=== PATIENT | female | born 1960 | race Caucasian/White ===

== ENCOUNTER → 2018-02-25 07:45 | Outpatient (CLI) | payer OTHER, SELFPAY ==
--- NOTE | 2018-02-25 07:49 | BI_ITS ---
MAMMOGRAPHY - BILATERAL SCREENING REASON FOR EXAM: Female, 57 years old. Routine annual screening examination. PERTINENT HISTORY: Aunt with breast cancer. TECHNIQUE: Digital bilateral breast zohreh (3D mammographic acquisition) in the CC and MLO projections. 2-D mediolateral oblique (MLO) and craniocaudad (CC) views of both breasts were obtained. CAD: Full Field Digital Mammography with Computer Added Detection was performed. COMPARISON: Comparison is made with prior study dated February 18, 2017 and February 17, 2016. FINDINGS: Breast Composition: The breasts are heterogeneously dense, which may obscure small masses. There are no dominant masses or suspicious calcifications. No other significant abnormalities are identified. There has been no significant change since the prior study. BI/SCREENING MAMM (CAD), BILAT IMPRESSION: Stable bilateral screening mammogram. Yearly follow-up mammogram recommended. (A) ASSESSMENT CATEGORY: BIRADS Category 1: Negative. A letter regarding these results will be sent to the patient by the facility within 30 days. Approximately 10% of breast cancers are not detected by mammography. A normal mammogram should not delay biopsy of a clinically suspicious abnormality. [id number] Electronically Signed: Faraz Bai MD at 11:02 EDT Tel [phone], Service support ,
== END ==
PROVIDERS: Family Provider Family Medicine; PCP Family Medicine; Visit Provider Obstetrics & Gynecology
DX: Z12.31 Encounter for screening mammogram for malignant neoplasm of breast (principal)
CPT/HCPCS: 77063; 77067

== ENCOUNTER → 2019-02-28 | Outpatient (CLI) | payer OTHER, SELFPAY ==
--- NOTE | 2019-02-28 06:57 | BI_ITS ---
MAMMOGRAPHY - BILATERAL SCREENING REASON FOR EXAM: Female, 58 years old. Routine annual screening examination. PERTINENT HISTORY: Aunts with breast cancer. TECHNIQUE: Digital bilateral breast katie (3D mammographic acquisition) in the CC and MLO projections. 2-D mediolateral oblique (MLO) and craniocaudad (CC) views of both breasts were obtained. CAD: Full Field Digital Mammography with Computer Added Detection was performed. COMPARISON: Comparison is made with prior study dated February 25, 2018 and February 18, 2017. FINDINGS: Breast Composition: The breasts are heterogeneously dense, which may obscure small masses. There are no dominant masses or suspicious calcifications. Stable small bilateral axillary lymph nodes. No other significant abnormalities are identified. There has been no significant change since the prior study. BI/SCREEN MAMM (CAD) W/KATIE BILAT IMPRESSION: Stable bilateral screening mammogram. Yearly follow-up mammogram recommended. (A) ASSESSMENT CATEGORY: BIRADS Category 2: Benign. A letter regarding these results will be sent to the patient by the facility within 30 days. Approximately 10% of breast cancers are not detected by mammography. A normal mammogram should not delay biopsy of a clinically suspicious abnormality. [id number] Electronically Signed: Faraz Bai, at 8:49 EDT , Service support ,
== END | disposition home or self-care (01) ==
LOC: OPBI 07:22
PROVIDERS: Family Provider Family Medicine; PCP Family Medicine; Referring Provider Obstetrics & Gynecology; Visit Provider Obstetrics & Gynecology
DX: Z12.31 Encounter for screening mammogram for malignant neoplasm of breast (principal)
CPT/HCPCS: 77063; 77067

== ENCOUNTER → 2019-03-10 17:29 | Outpatient (CLI) | payer OTHER, SELFPAY ==
[2019-03-17 15:46] LABS: HPV Reflexed? NOT INDICATED
== END ==
PROVIDERS: Referring Provider Obstetrics & Gynecology; Visit Provider Obstetrics & Gynecology
DX: Z12.4 Encounter for screening for malignant neoplasm of cervix (principal)
CPT/HCPCS: 87624; 88175; G0145

== ENCOUNTER 2019-08-23 18:45 | Outpatient (RCR) | payer OTHER, SELFPAY ==
--- NOTE | 2018-10-17 12:46 | MASS.EVAL_ITS ---
Massage Therapy Evaluation: Initial Evaluation Date: 10/12/2018 SUBJECTIVE: Rossana is a 57 year old female who was referred to the [facility] for a massotherapy evaluation by Dr Vlad Rothman with the diagnosis of neck pain. Rossana presents today with the symptoms of tension and pain in her neck and shoulders. She states that the left is worse then the right. She reports having increased pain after work. OBJECTIVE: Upon observation Rossana has slight head forward in sitting and standing postures. After examination and palpation I found Rossana to have high muscle tension with tenderness and myofascial restrictions in her sub occipitals, levator scapulae, trapezius, rhomboids, scalenes, and thoracic paraspinals. Her QL?s, lumbar paraspinals, glute medius and minimus all were very tight with fascial restrictions, tender points and trigger points. The first treatment consisted of a one hour massage to her full body with myofascial release, muscle stripping, trigger point compression techniques, and cervical manual traction. ASSESSMENT: I feel that Rossana is a good candidate for massotherapy at this time. She had a favorable response to the first treatment with reduction in her muscle aches, pain and tension. She also had improvement in her cervical flexibility and low back flexibility. PLAN: The plan of care was reviewed with the patient. The patient is to be seen on an as needed basis for a total of ten sessions with the recommendation of once every month for a one hour treatment.
--- NOTE | 2019-09-01 14:59 | MASS.DISCH ---
Massage Therapy Discharge Summary: Discharge Date: 09/01/2019 Rossana was seen for a massotherapy evaluation on 10/12/2018 with the diagnosis of cervicalgia. She was treated with seven sessions of massage therapy consisting of moderate to deep pressure soft tissue techniques, myofascial release and trigger point compression to her cervical, thoracic, lower back, upper extremities, lower extremities and hips. Rossana responded well to the therapy by reporting decreased tension and pain throughout her head, neck, shoulders, lower back and hips. Her goals for therapy were met throughout the treatment sessions. At this time this patient is being discharged from our care at [facility] facility.
== END 2019-08-23 19:00 | disposition home or self-care (01) ==
LOC: MASS 18:45
PROVIDERS: Family Provider Family Medicine; PCP Family Medicine; Visit Provider Family Medicine
DX: M54.2 Cervicalgia (principal)
CPT/HCPCS: 97124

== ENCOUNTER → 2019-11-02 10:57 | Outpatient (CLI) | payer OTHER, SELFPAY ==
[2019-11-02 12:46] LABS: Vitamin D,25 Hydroxy 29.8 ng/mL (29.95-100.01)
[2019-11-02 13:00] LABS: ALB/GLOB Ratio 0.9 RATIO (0.9-2.4); AST(SGOT) 19 U/L (15-37); Alanine Aminotransfer ALT/SGPT 27 U/L (13-56); Alkaline Phosphatase 95 U/L (45-117); Anion Gap 6 (5-15); BUN 10 mg/dL (7-18); BUN/Creat Ratio 13.5 RATIO (10-20); Calcium,Total 9.7 mg/dL (8.5-10.1); Chloride 103 mmol/L (98-107); Creatinine, Serum 0.74 mg/dL (0.55-1.02); EST Glomerular Filtration Rate 85 mL/min (>60); Est Glom Filt Rate - Afr Amer 103 mL/min (>60); Globulin 4.4 g/dL (2.2-4.2); Glucose 107 mg/dL (74-106); Potassium 3.7 mmol/L (3.5-5.1); Protein, Total 8.4 g/dL (6.4-8.2); Sodium Level 137 mmol/L (136-145); T4 Free Direct 1.15 ng/dL (0.76-1.46); Thyroid Stim Hormone (TSH) 1.35 uIU/mL (0.358-3.74)
== END ==
PROVIDERS: PCP Family Medicine; Referring Provider Family Medicine; Visit Provider Family Medicine
DX: I10 Essential (primary) hypertension (principal); E04.1 Nontoxic single thyroid nodule; E55.9 Vitamin D deficiency, unspecified
CPT/HCPCS: 36415; 80053; 82306; 83036; 84439; 84443

== ENCOUNTER → 2019-11-03 13:57 | Outpatient (CLI) | payer OTHER, SELFPAY | PROVIDERS: PCP Family Medicine; Referring Provider Family Medicine; Visit Provider Family Medicine | DX: R73.09 Other abnormal glucose (principal) | CPT/HCPCS: 36415; 83036 ==

== ENCOUNTER → 2019-11-07 08:34 | Outpatient (CLI) | payer OTHER, SELFPAY ==
--- NOTE | 2019-11-07 08:36 | US_ITS ---
STUDY: THYROID ULTRASOUND REASON FOR EXAM: Female, 58 years old. nodule TECHNIQUE: Ultrasound evaluation of the thyroid was performed with real-time and static michele-scale imaging. COMPARISON: None. FINDINGS: RIGHT LOBE: The right lobe of the thyroid gland measures 4.8 x 1.4 x 1.2 cm. There is a homogeneous echotexture. 2 mm colloid cyst in the inferior right lobe. 2 mm colloid cyst posteriorly in the right lobe. LEFT LOBE: The left lobe of the thyroid gland measures 4.9 x 1.6 x 1.3 cm. There is a homogeneous echotexture. 8 mm slightly hypoechoic solid nodule in the left lobe likely consistent with an adenoma. Follow-up ultrasound is recommended in one year to document stability. ISTHMUS: The isthmus measures 2 mm thick. . The regional lymph nodes are normal. US/Thyroid IMPRESSION: 8 mm solid nodule in the left lobe and follow-up ultrasound is recommended in one year to document stability. Electronically Signed: Edy Hdez MD at 12:43 EST Tel , Service support ,
== END ==
PROVIDERS: PCP Family Medicine; Referring Provider Family Medicine; Visit Provider Family Medicine
DX: E04.1 Nontoxic single thyroid nodule (principal)
CPT/HCPCS: 76536

== ENCOUNTER → 2020-03-04 07:33 | Outpatient (CLI) | payer OTHER, SELFPAY ==
--- NOTE | 2020-03-04 07:35 | BI_ITS ---
MAMMOGRAPHY - BILATERAL SCREENING 3-D TOMOSYNTHESIS REASON FOR EXAM: Female, 59 years old. Routine screening PERTINENT HISTORY: FM HX 2 MAT AUNTS 60''S, MAT MALE COUSIN 30, RT UIQ MOLE MARKED. TECHNIQUE: 2-D mammograms and 3-D Tomosynthesis of the breast (s) were performed. CAD was performed. COMPARISON: Multiple previous studies, the most recent from 02/28/2019 FINDINGS: The breast composition is heterogeneously dense that can obscure small breast masses. Scattered benign calcifications are seen. No dense spiculated masses or suspicious microcalcifications are identified. No architectural distortion is identified. There is no skin thickening or retraction. There has been no significant change since the prior study. BI/SCREEN MAMM (CAD) W/KATIE BILAT IMPRESSION: No mammographic signs of malignancy. Routine yearly mammograms recommended. ASSESSMENT CATEGORY: BIRADS Category 2: Benign. A letter regarding these results will be sent to the patient by the facility within 30 days. FOLLOW UP RECOMMENDATION: Yearly follow up mammogram recommended. (A) Approximately 10% of breast cancers are not detected by mammography. A normal mammogram should not delay biopsy of a clinically suspicious abnormality. Electronically Signed: Benson Novoa MD at 10:16 EDT , Service support ,
== END ==
PROVIDERS: PCP Family Medicine; Referring Provider Obstetrics & Gynecology; Visit Provider Obstetrics & Gynecology
DX: Z12.31 Encounter for screening mammogram for malignant neoplasm of breast (principal)
CPT/HCPCS: 77063; 77067

== ENCOUNTER → 2020-06-21 08:48 | Outpatient (CLI) | payer OTHER, SELFPAY ==
[2020-05-27 09:29] VITALS: BMI 25.0
[2020-06-21 10:59] LABS: Absolute Neutrophil Count 4.3 X10^3/uL (2.0-7.7); Basophil# 0.05 X10^3/uL; Basophil% 0.6 % (0-1); Eosinophil# 0.14 X10^3/uL; Eosinophils% 1.6 % (0-5); Hematocrit 47.1 % (37-47); Hemoglobin 14.8 g/dL (12.0-15.0); Mean Corp Hgb Conc 31.4 g/dL (32-36); Mean Corpuscular Hgb 28.7 pg (27.0-32.0); Mean Corpuscular Volume 91.3 fL (81-99); Mean Platelet Vol. 10.2 fl (6.2-12.0); Monocyte# 0.99 X10^3/uL; Monocyte% 11.1 % (0-10); NRBC Flagged by Analyzer 0 % (0-5); Neutrophil # 4.33 X10^3/uL (2.7-7.7); Neutrophil % 48.4 % (47-70); Platelet Count 301 K/mm3 (150-450); RBC Distribution Width CV 12.5 % (11.6-14.6); RBC Distribution Width SD 41.8 fl (35.1-43.9); Red Blood Count 5.16 M/mm3 (4.2-5.4); White Blood Count 8.9 K/mm3 (4.4-11.0)
[2020-06-21 11:02] LABS: Hemoglobin A1c 6.1 % (3.8-5.6)
[2020-06-21 11:10] LABS: ALB/GLOB Ratio 0.9 RATIO (0.9-2.4); AST(SGOT) 17 U/L (15-37); Alanine Aminotransfer ALT/SGPT 24 U/L (13-56); Albumin, Serum 3.6 g/dL (3.2-5.0); Alkaline Phosphatase 88 U/L (45-117); Anion Gap 4 (5-15); BUN 9 mg/dL (7-18); BUN/Creat Ratio 11.6 RATIO (10-20); Calcium,Total 9.4 mg/dL (8.5-10.1); Chloride 106 mmol/L (98-107); Creatinine, Serum 0.77 mg/dL (0.55-1.02); EST Glomerular Filtration Rate 80 mL/min (>60); Est Glom Filt Rate - Afr Amer 97 mL/min (>60); Globulin 3.9 g/dL (2.2-4.2); Glucose 98 mg/dL (74-106); Potassium 3.8 mmol/L (3.5-5.1); Protein, Total 7.5 g/dL (6.4-8.2); Sodium Level 139 mmol/L (136-145)
== END ==
PROVIDERS: PCP Family Medicine; Referring Provider Family Medicine; Visit Provider Family Medicine
DX: I10 Essential (primary) hypertension (principal); R73.02 Impaired glucose tolerance (oral)
CPT/HCPCS: 36415; 80053; 83036; 85025

== ENCOUNTER 2020-09-09 13:30 | Outpatient (RCR) | payer OTHER, SELFPAY ==
--- NOTE | 2020-04-22 10:50 | MASS.EVAL ---
Massage Therapy Evaluation: Initial Evaluation Date: 04/19/2020 SUBJECTIVE: Rossana is a 59 year old female who was referred to the [facility] facility for a massotherapy evaluation by Dr. Fitzpatrick with the diagnosis of neck and back pain. She presents today with the symptoms of slight pain, stiffness and tension in the neck, mid back, low back and hips. Rossana reports having a past medical history of neck, shoulders, back pain. OBJECTIVE: Upon observation Rossana has some posture issues with her head and shoulders forward from the neutral position in sitting and standing. After examination and palpation, I found Rossana to have high muscle tension with tenderness and myofascial restrictions in her sub occipitals, levator scapulae, trapezius, rhomboids, scalenes, and thoracic paraspinals. Her paraspinals, piriformis, glute medius and minimus all were very tight with fascial restrictions, tender points and trigger points. The first treatment consisted of a one hour massage to her full body with myofascial release, muscle stripping, trigger point compression techniques, and cervical manual traction. ASSESSMENT: I feel that Rossana is a good candidate for massotherapy at this time. She had a favorable response to the first treatment with reduction in her muscle aches, pain and tension. She also had improvement in her cervical flexibility and low back flexibility. PLAN: The plan of care was reviewed with the patient. The patient is to be seen on an as needed basis for a total of ten sessions with the recommendation of once every month for a one hour treatment.
--- NOTE | 2020-09-10 12:29 | MASS.DISCH ---
Massage Therapy Discharge Summary: Discharge Date: 09/10/2020 Rossana was seen for a massotherapy evaluation on 04/19/2020 with the diagnosis of back and neck pain. She was treated with five sessions of massage therapy consisting of moderate pressure soft tissue techniques, myofascial release and trigger point compression to her cervical, thoracic, lower back, lower extremities and hips. Rossana responded well to the therapy by reporting decreased tension and pain throughout her neck, shoulders, lower back and hips. At this time this patient is being discharged from our care at [facility] facility.
== END 2020-09-09 19:00 | disposition home or self-care (01) ==
LOC: MASS 13:30
PROVIDERS: PCP Family Medicine; Visit Provider Family Medicine
DX: M54.9 Dorsalgia, unspecified (principal); M54.2 Cervicalgia
CPT/HCPCS: 97124

== ENCOUNTER → 2020-11-01 07:34 | Outpatient (CLI) | payer OTHER, SELFPAY ==
[2020-05-27 09:29] VITALS: BMI 25.0
--- NOTE | 2020-11-01 07:35 | US_ITS ---
STUDY: THYROID ULTRASOUND REASON FOR EXAM: Female, 59 years old. NODULES TECHNIQUE: Ultrasound evaluation of the thyroid was performed with real-time and static michele-scale imaging. COMPARISON: Comparison is made with prior examination dated 11/07/2019. FINDINGS: RIGHT LOBE: The right lobe of the thyroid gland measures 4.4 cm x 1.8 cm x 1.9 cm. There is a homogeneous echotexture. There is a 3 mm x 2 mm x 2 mm cyst in the lower pole. This is unchanged. LEFT LOBE: The left lobe of the thyroid gland measures 4.7 cm x 1.5 cm x 1.8 cm. There is a homogeneous echotexture. There is a 4 mm x 4 mm x 3 mm hypoechoic solid nodule in the midpole of the left lobe. This has decreased in size as compared to prior study. ISTHMUS: The isthmus measures 4 mm. The regional lymph nodes are normal. US/Thyroid IMPRESSION: Interval decrease in size of the hypoechoic solid nodule seen in the midpole of the left lobe. It presently measures 4 mm x 4 mm x 3 mm. Electronically Signed: Faraz Bai MD at 9:43 EST , Service support ,
== END ==
PROVIDERS: PCP Family Medicine; Referring Provider Family Medicine; Visit Provider Family Medicine
DX: E04.1 Nontoxic single thyroid nodule (principal)
CPT/HCPCS: 76536

== ENCOUNTER → 2020-12-31 08:45 | Outpatient (CLI) | payer OTHER, SELFPAY ==
[2020-12-31 10:18] LABS: Absolute Lymphocyte Count 2.87 X10^3/uL (0.83-4.51); Absolute Neutrophil Count 4.2 X10^3/uL (2.0-7.7); Basophil# 0.04 X10^3/uL; Basophil% 0.5 % (0-1); Eosinophil# 0.13 X10^3/uL; Eosinophils% 1.6 % (0-5); Hematocrit 44.2 % (37-47); Hemoglobin 14.4 g/dL (12.0-15.0); Lymphocyte # 2.87 X10^3/ul (0.83-4.51); Lymphocyte % 35.5 % (19-41); Mean Corp Hgb Conc 32.6 g/dL (32-36); Mean Corpuscular Hgb 29.1 pg (27.0-32.0); Mean Corpuscular Volume 89.5 fL (81-99); Mean Platelet Vol. 10.2 fl (6.2-12.0); Monocyte# 0.82 X10^3/uL; Monocyte% 10.1 % (0-10); NRBC Flagged by Analyzer 0 % (0-5); Neutrophil % 52.1 % (47-70); Platelet Count 260 K/mm3 (150-450); RBC Distribution Width CV 12.3 % (11.6-14.6); RBC Distribution Width SD 40.3 fl (35.1-43.9); Red Blood Count 4.94 M/mm3 (4.2-5.4); White Blood Count 8.1 K/mm3 (4.4-11.0)
[2020-12-31 10:50] LABS: AST(SGOT) 16 U/L (15-37); Alanine Aminotransfer ALT/SGPT 21 U/L (13-56); Albumin, Serum 3.5 g/dL (3.2-5.0); Alkaline Phosphatase 82 U/L (45-117); Anion Gap 5 (5-15); BUN 13 mg/dL (7-18); BUN/Creat Ratio 19.6 RATIO (10-20); Calcium,Total 8.8 mg/dL (8.5-10.1); Chloride 104 mmol/L (98-107); Creatinine, Serum 0.66 mg/dL (0.55-1.02); EST Glomerular Filtration Rate 96 mL/min (>60); Est Glom Filt Rate - Afr Amer 116 mL/min (>60); Globulin 3.5 g/dL (2.2-4.2); Glucose 98 mg/dL (74-106); Potassium 3.7 mmol/L (3.5-5.1); Sodium Level 137 mmol/L (136-145)
[2020-12-31 11:25] LABS: Hemoglobin A1c 5.7 % (3.8-5.6)
== END ==
PROVIDERS: PCP Family Medicine; Referring Provider Family Medicine; Visit Provider Family Medicine
DX: R73.02 Impaired glucose tolerance (oral) (principal); I10 Essential (primary) hypertension
CPT/HCPCS: 80053; 83036; 85025

== ENCOUNTER → 2021-03-13 08:08 | Outpatient (CLI) | payer OTHER, SELFPAY ==
[2020-05-27 09:29] VITALS: BMI 25.0
--- NOTE | 2021-03-13 08:10 | BI_ITS ---
MAMMOGRAPHY - BILATERAL SCREENING REASON FOR EXAM: Female, 60 years old. Routine annual screening examination. PERTINENT HISTORY: Aunt with breast cancer. TECHNIQUE: Digital bilateral breast katie (3D mammographic acquisition) in the CC and MLO projections. 2-D mediolateral oblique (MLO) and craniocaudad (CC) views of both breasts were obtained. CAD: Full Field Digital Mammography with Computer Added Detection was performed. COMPARISON: Comparison is made with prior study dated 03/04/2020 and 02/28/2019. FINDINGS: Breast Composition: The breasts are heterogeneously dense, which may obscure small masses. There are no dominant masses or suspicious calcifications. Stable small benign appearing bilateral axillary lymph nodes. No other significant abnormalities are identified. There has been no significant change since the prior study. BI/SCRN MAMM (CAD)W/KATIE BILAT IMPRESSION: Stable bilateral screening mammogram. Yearly follow-up mammogram recommended. (A) ASSESSMENT CATEGORY: BIRADS Category 2: Benign. A letter regarding these results will be sent to the patient by the facility within 30 days. Approximately 10% of breast cancers are not detected by mammography. A normal mammogram should not delay biopsy of a clinically suspicious abnormality. [id number] Electronically Signed: Faraz Bai MD at 9:01 EDT , Service support ,
== END ==
PROVIDERS: PCP Family Medicine; Referring Provider Obstetrics & Gynecology; Visit Provider Obstetrics & Gynecology
DX: Z12.31 Encounter for screening mammogram for malignant neoplasm of breast (principal)
CPT/HCPCS: 77063; 77067

== ENCOUNTER 2021-05-02 06:55 | Day surgery (SDC) | payer OTHER, SELFPAY ==
[2021-05-02 07:24] VITALS: BP 145/73; PULSE 96; RESP 18; TEMP 36.8; O2SAT 99; BMI 25.0
--- NOTE | 2021-05-02 07:30 | H&P.OPEN ---
HPI - General HPI Narrative LIAM BURR, is a 60 F who presents for screening colonoscopy. Patient reports her last colonoscopy was normal. Patient is not having any abdominal pain or blood in her stool and denies immediate family history of colon cancer. [facility] Medical History (Updated 05/02/21 @ 07:[address] David Magana MD) Chronic neck and back pain HTN (hypertension) Injury of head and neck Knee pain Leg cramps Thyroid disease Wears glasses Home Medications amlodipine 5 mg tablet 5 mg PO DAILY 05/13/20 [History Last Taken 05/02/21 05:00] calcium carbonate 500 mg (1,250 mg)-vitamin D3 400 unit tablet 1 tab PO DAILY 05/13/20 [History Last Taken Unknown] cholecalciferol (vitamin D3) 25 mcg (1,000 unit) capsule 25 mcg PO DAILY 05/13/20 [History Last Taken Unknown] multivitamin with minerals 1 tab PO DAILY 05/13/20 [History Last Taken Unknown] Allergy/AdvReac Type Severity Reaction Status Date / Time lisinopril Allergy Mild Swelling Verified 05/02/21 07:19 Family History Mother Hypertension Thyroid disorder Hypercholesterolemia Father Heart disease NHL (nodular histiocytic lymphoma) Surgical History History of dilatation and curettage History of oral surgery History of uterine fibroid Hx of colonoscopy Hx of one miscarriage Social History Smoking Status: Never smoker alcohol intake: never Past Medical/Surgical History Planned Operation Planned Operative Procedure/s: COLONOSCOPY Previous Hospitalizations/Surgeries HX Hospitalizations: No Any Problems With Anesthesia: No You/Your Family Experience Fever (Hyperthermia) With Anes: No Cholinesterase deficiency: No Cardiovascular Hx of Irregular Heartbeat and/or Afib: No Hx Heart Attack: No Hx Congestive Heart Failure: No Hx Hypertension: Yes (CONTROLLED ON MED) Hx Pacemaker: No Respiratory Hx Chronic Obstructive Pulmonary Disease (COPD): No Hx Asthma: No Hx Emphysema: No Hx Sleep Apnea: No Hx Respiratory Tract Infection/Cold (presently): No Do You Snore Loudly (louder than talking or can be heard): No Do You Often Feel Tired/ Fatigued/ Sleepy Dring Daytime?: No Has Anyone Observed You Stop Breathing During Sleep?: No Result (for STOP score): Negative Smoking Status: Never smoker Gastrointestinal Hx Gastroesophageal Reflux: No Hx Ulcer: No Neurological Hx Seizures: No Hx Head/Neck Injury: No Hx Headaches: No Hx Back Injury/Pain: No Does patient have nerve stimulator: No Miscellaneous Recent Exposure to Contagious Disease: No Allergies lisinopril Allergy (Mild, Verified 05/02/21 07:19) Swelling of the lips Discharge Is Pt Admitted From a Longterm, or a Penitentiary: No After D/C, Where Do you Plan to Go: Return Home Vital Signs Vital Signs Vital Signs: 05/02/21 07:21 05/02/21 07:24 Temperature 98.2 F Temperature Source Temporal Pulse Rate 96 Respiratory Rate 18 Respiratory Pattern Normal Blood Pressure 145/73 H Blood Pressure Mean 97 Blood Pressure Source Monitor Blood Pressure Position Semi-Fowlers Blood Pressure Location Right Arm Pulse Ox 99 Oxygen Delivery Method Room Air Weight Weight: 145 lb 8.081 oz Body Mass Index (BMI) 25.0 Physical Exam Const alert and oriented x3 Resp normal respiratory effort and normal air movement Cardio regular rate and regular rhythm GI soft to palpation, non-tender and non-distended Assessment & Plan Assessment/Plan (1) Screen for colon cancer: PLAN: I explained endoscopy in detail to the patient. I explained the risks including but not limited to stroke or heart attack with anesthesia, perforation of the GI tract, bleeding, infection. I explained that any of these could necessitate further emergency surgery. The patient understands and all questions were answered sufficiently. The patient wishes to proceed with procedure. David Magana MD Pager: [facility] [address] [place] [address], [address] [place] [address] Office: Surgery Risks - Colonoscopy Risks Include but are not Limited To: Risks include but are not limited to: Bleeding, perforation requiring further surgery, inability to complete colonoscopy requiring barium enema.
[2021-05-02] MEDS: Lactated Ringers 1,000 ML 100 ML IV (07:35)
[2021-05-02 07:59] VITALS: BP 106/62; BP 145/73; PULSE 87; RESP 16; TEMP 36.4; O2SAT 99
--- NOTE | 2021-05-02 08:00 | OP.COLON_ITS ---
Patient Name: Rossana Frias Procedure Date: 05/02/2021 7:32 AM Date of : 1960 Age: 60 Procedure: Colonoscopy Indications: Screening for colorectal malignant neoplasm Providers: David Magana MD Medicines: Monitored Anesthesia Care Patient Profile: This is a 60 year old female. Refer to note in patient chart for documentation of history and physical. Last Colonoscopy: 10 years ago. Complications: No immediate complications. Procedure: Pre-Anesthesia Assessment: - Prior to the procedure, a History and Physical was performed, and patient medications and allergies were reviewed. The patient's tolerance of previous anesthesia was also reviewed. The risks and benefits of the procedure and the sedation options and risks were discussed with the patient. All questions were answered, and informed consent was obtained. Prior Anticoagulants: The patient has taken no previous anticoagulant or antiplatelet agents. After reviewing the risks and benefits, the patient was deemed in satisfactory condition to undergo the procedure. After I obtained informed consent, the scope was passed under direct vision. Throughout the procedure, the patient's blood pressure, pulse, and oxygen saturations were monitored continuously. The colonoscope was introduced through the anus and advanced to the cecum, identified by appendiceal orifice and ileocecal valve. The colonoscopy was performed without difficulty. The patient tolerated the procedure well. The quality of the bowel preparation was good. Scope In: 7:42:51 AM Scope Withdrawal Time 0 hours 6 minutes 10 seconds Scope Out: 7:55:32 AM Total Procedure Duration Time 0 hours 12 minutes 41 seconds Findings: The entire examined colon appeared normal on direct and retroflexion views. Non-bleeding internal hemorrhoids were found during retroflexion. The hemorrhoids were small. Impression: - The entire examined colon is normal on direct and retroflexion views. - Non-bleeding internal hemorrhoids. - No specimens collected. Recommendation: - Discharge patient to home. - Resume previous diet. - Continue present medications. - Repeat colonoscopy in 10 years for screening purposes. Procedure Code(s): --- Professional --- G0121, Colorectal cancer screening; colonoscopy on individual not meeting criteria for high risk Diagnosis Code(s): --- Professional --- Z12.11, Encounter for screening for malignant neoplasm of colon K64.8, Other hemorrhoids CPT copyright 2017 [employer]. All rights reserved. The codes documented in this report are preliminary and upon navy diver review may be revised to meet current compliance requirements. David Magana MD 05/02/2021 7:58:59 AM This report has been signed electronically. Number of Addenda: 0 Note Initiated On: 05/02/2021 7:32 AM
--- NOTE | 2021-05-02 08:00 | OP.CCLET_ITS ---
05/02/2021 Vlad Fitzpatrick [address] [place] [address] Re : Colonoscopy procedure for Rossana Rodriguez Dear Dr. Fitzpatrick This procedure was performed on Sunday, May 02, 2021. My impressions and recommendations are as follows: Impressions : - The entire examined colon is normal on direct and retroflexion views. - Non-bleeding internal hemorrhoids. - No specimens collected. Recommendations : - Discharge patient to home. - Resume previous diet. - Continue present medications. - Repeat colonoscopy in 10 years for screening purposes. My findings are described in the full procedure note, which is enclosed. If I can be of further assistance, please feel free to contact me at Doctor phone number(s): , Work: . Sincerely, David Magana MD 05/02/2021 7:58:59 AM This report has been signed electronically.
[2021-05-02 08:05] VITALS: BP 106/63; BP 145/73; PULSE 82; RESP 16; O2SAT 97
[2021-05-02 08:10] VITALS: BP 110/73; BP 145/73; PULSE 83; RESP 16; O2SAT 97
[2021-05-02 08:15] VITALS: BP 117/73; BP 145/73; PULSE 79; RESP 16; TEMP 36.3; O2SAT 97
[2021-05-02 08:32] VITALS: BP 145/73
== END 2021-05-02 08:38 | disposition home or self-care (01) ==
LOC: EN 06:57 → AC 06:58
PROVIDERS: PCP Family Medicine; Referring Provider Family Medicine; Visit Provider Surgery
PROC: 0DJD8ZZ Inspection of Lower Intestinal Tract, Via Natural or Artificial Opening Endoscopic (ICD-10-PCS; CPT 45378; principal; 2021-05-02 07:55)
DX: Z12.11 Encounter for screening for malignant neoplasm of colon (principal); K64.8 Other hemorrhoids; I10 Essential (primary) hypertension; E07.9 Disorder of thyroid, unspecified; G89.29 Other chronic pain; Z79.899 Other long term (current) drug therapy; Z88.8 Allergy status to other drugs, medicaments and biological substances
CPT/HCPCS: 45378; J7120; J2405

== ENCOUNTER → 2021-05-22 16:19 | Outpatient (CLI) | payer OTHER, SELFPAY ==
[2021-05-27 10:32] LABS: HPV Reflexed? NOT INDICATED
== END ==
PROVIDERS: PCP Family Medicine; Visit Provider Obstetrics & Gynecology
DX: Z12.4 Encounter for screening for malignant neoplasm of cervix (principal)
CPT/HCPCS: 88175; G0145

== ENCOUNTER 2021-07-25 13:30 | Outpatient (RCR) | payer OTHER, SELFPAY ==
[2020-05-27 09:29] VITALS: BMI 25.0
--- NOTE | 2020-11-23 08:29 | MASS.EVAL ---
Massage Therapy Evaluation: Initial Evaluation Date: 11/19/2020 SUBJECTIVE: Rossana is a 59 year old female who was referred to the [facility] facility for a massotherapy evaluation by Dr. Fitzpatrick with the diagnosis of neck and back pain. She presents today with the symptoms of pain, stiffness and tension in the neck, head, mid back, low back, amd hips. Rossana reports having a past medical history of chronic neck and back pain and states that it relates to her job. OBJECTIVE: Upon observation Rossana has some posture issues with her head and shoulders forward from the neutral position in sitting and standing. After examination and palpation, I found Rossana to have high muscle tension with tenderness and myofascial restrictions in her sub occipitals, levator scapulae, trapezius, rhomboids, scalenes, and thoracic paraspinals. Her QL?s, lumbar paraspinals, piriformis, ITB?s, glute medius and minimus all were very tight with fascial restrictions, tender points and trigger points. The first treatment consisted of a one hour massage to her full body with myofascial release, muscle stripping, trigger point compression techniques, and cervical manual traction. ASSESSMENT: I feel that Rossana is a good candidate for massotherapy at this time. She had a favorable response to the first treatment with reduction in her muscle aches, pain and tension. She also had improvement in her cervical flexibility and low back flexibility. PLAN: The plan of care was reviewed with the patient. The patient is to be seen on an as needed basis for a total of ten sessions with the recommendation of once every month for a one hour treatment.
--- NOTE | 2021-09-02 13:08 | MASS.DISCH ---
Massage Therapy Discharge Summary: Discharge Date 09/02/21 Rossana was seen for a massotherapy evaluation on November 19, 2020, with the diagnosis of neck and back pain. The patient was treated with five sessions of massage. The patient responded well to treatments. At this time I am discharging the patient from our care at [facility].
== END 2021-07-25 19:00 | disposition home or self-care (01) ==
LOC: MASS 13:30
PROVIDERS: PCP Family Medicine; Referring Provider Family Medicine; Visit Provider Family Medicine
DX: M54.2 Cervicalgia (principal)
CPT/HCPCS: 97124

== ENCOUNTER → 2021-09-11 08:04 | Outpatient (CLI) | payer BC, SELFPAY ==
[2021-09-11 08:12] LABS: Bacteria 0 SEEN /hpf (None Seen); Mucous, Urine 0 SEEN /hpf (<or=2+); Red Blood Cells-Urine 0 SEEN /hpf (0-5); Squamous Epithelial Cells - UA 0 SEEN /hpf (5-10); White Blood Cells 0 SEEN /hpf (0-5)
[2021-09-11 10:29] LABS: Absolute Lymphocyte Count 2.36 X10^3/uL (0.83-4.51); Absolute Neutrophil Count 3.9 X10^3/uL (2.0-7.7); Basophil# 0.06 X10^3/uL; Basophil% 0.8 % (0-1); Color, Urine Straw (Yellow); Eosinophil# 0.11 X10^3/uL; Eosinophils% 1.5 % (0-5); Glucose, Dipstick Normal (Normal); Hematocrit 43.9 % (37-47); Hemoglobin 14.7 g/dL (12.0-15.0); Ketone-Dipstick Negative (Negative); Leukocyte Esterase-Dipstick Negative /ul (Negative); Lymphocyte # 2.36 X10^3/ul (0.83-4.51); Lymphocyte % 32.4 % (19-41); Mean Corp Hgb Conc 33.5 g/dL (32-36); Mean Corpuscular Hgb 29.8 pg (27.0-32.0); NRBC Flagged by Analyzer 0 % (0-5); Neutrophil # 3.94 X10^3/uL (2.7-7.7); Nitrite-Dipstick Negative (Negative); Occult Blood-Urine Negative /ul (Negative); Platelet Count 271 K/mm3 (150-450); Protein-Dipstick Negative (Negative); RBC Distribution Width CV 12.4 % (11.6-14.6); RBC Distribution Width SD 40.8 fl (35.1-43.9); Red Blood Count 4.93 M/mm3 (4.2-5.4); Urine Bilirubin Dipstick Negative (Negative); Urine Clarity Clear (Clear); Urine Urobilinogen Normal (Normal); Urine pH 6.5 (5.0 - 8.0); White Blood Count 7.3 K/mm3 (4.4-11.0)
[2021-09-11 10:47] LABS: Hemoglobin A1c 5.6 % (3.8-5.6)
[2021-09-11 10:54] LABS: ALB/GLOB Ratio 0.9 RATIO (0.9-2.4); AST(SGOT) 17 U/L (15-37); Alanine Aminotransfer ALT/SGPT 26 U/L (13-56); Albumin, Serum 3.6 g/dL (3.2-5.0); Alkaline Phosphatase 79 U/L (45-117); Anion Gap 7 (5-15); BUN 10 mg/dL (7-18); Chloride 104 mmol/L (98-107); Cholesterol 198 mg/dL (200); Creatinine, Serum 0.66 mg/dL (0.55-1.02); EST Glomerular Filtration Rate 95 mL/min (>60); Est Glom Filt Rate - Afr Amer 115 mL/min (>60); Globulin 3.8 g/dL (2.2-4.2); Glucose 103 mg/dL (74-106); High Density Lipoprotein 44 mg/dL; Potassium 3.9 mmol/L (3.5-5.1); Protein, Total 7.4 g/dL (6.4-8.2); Sodium Level 139 mmol/L (136-145); Thyroid Stim Hormone (TSH) 2.05 uIU/mL (0.358-3.74); Triglycerides 176 mg/dL; Very Low Density Lipoprotein 35 mg/dL (5-40)
== END ==
PROVIDERS: PCP Family Medicine; Referring Provider Family Medicine; Visit Provider Family Medicine
DX: I10 Essential (primary) hypertension (principal); R73.02 Impaired glucose tolerance (oral)
CPT/HCPCS: 36415; 80053; 80061; 81001; 83036; 84443; 85025

== ENCOUNTER 2021-11-07 12:40 | Outpatient (CLI) | payer BC, SELFPAY ==
--- NOTE | 2021-11-07 12:48 | US_ITS ---
STUDY: THYROID ULTRASOUND REASON FOR EXAM: Female, 60 years old. f/u nodules TECHNIQUE: Ultrasound evaluation of the thyroid was performed with real-time and static michele-scale imaging. COMPARISON: 11/01/2020 FINDINGS: RIGHT LOBE: The right lobe of the thyroid gland measures 5.0 x 1.8 x 1.3 cm. There is a homogeneous echotexture. No change in multiple tiny (less than 5 mm) adenomas or colloid cyst. LEFT LOBE: The left lobe of the thyroid gland measures 5.0 x 1.8 x 1.4 cm. There is a homogeneous echotexture. Nodule 1:8 x 7 x 2 mm solid hypoechoic smoothly marginated wider than tall nodule with no echogenic foci in the inferior left lobe consistent with an adenoma. ISTHMUS: The isthmus measures 4 mm thick. Nodule 2:6 x 6 x 4 mm solid hypoechoic wider than tall smoothly marginated nodule with no echogenic foci (TR 4) within the isthmus consistent with a small adenoma.. The regional lymph nodes are normal. US/Thyroid IMPRESSION: Multiple small adenomas. Electronically Signed: Edy Hdez MD at 9:34 EST ,
== END 2021-11-07 23:59 | disposition home or self-care (01) ==
PROVIDERS: PCP Family Medicine; Referring Provider Family Medicine; Visit Provider Family Medicine
DX: E04.1 Nontoxic single thyroid nodule (principal)
CPT/HCPCS: 76536

== ENCOUNTER → 2022-03-17 | Outpatient (CLI) | payer BC, SELFPAY ==
--- NOTE | 2022-03-17 10:19 | BI_ITS ---
MAMMOGRAPHY - BILATERAL SCREENING REASON FOR EXAM: Female, 61 years old. Routine annual screening examination. PERTINENT HISTORY: Aunt with breast cancer. TECHNIQUE: Digital bilateral breast katie (3D mammographic acquisition) in the CC and MLO projections. 2-D mediolateral oblique (MLO) and craniocaudad (CC) views of both breasts were obtained. CAD: Full Field Digital Mammography with Computer Added Detection was performed. COMPARISON: Comparison is made with prior study dated 03/13/2021 and 03/04/2020. FINDINGS: Breast Composition: The breasts are heterogeneously dense, which may obscure small masses. There are no dominant masses or suspicious calcifications. Stable small benign appearing bilateral axillary nodes. No other significant abnormalities are identified. There has been no significant change since the prior study. BI/SCRN MAMM (CAD)W/KATIE BILAT IMPRESSION: Stable bilateral screening mammogram. Yearly follow-up mammogram recommended. (A) ASSESSMENT CATEGORY: BIRADS Category 2: Benign. A letter regarding these results will be sent to the patient by the facility within 30 days. Approximately 10% of breast cancers are not detected by mammography. A normal mammogram should not delay biopsy of a clinically suspicious abnormality. [id number] Electronically Signed: Faraz Bai MD at 11:02 EDT ,
== END | disposition home or self-care (01) ==
LOC: OPBI 10:17
PROVIDERS: PCP Family Medicine; Visit Provider Obstetrics & Gynecology
DX: Z12.31 Encounter for screening mammogram for malignant neoplasm of breast (principal)
CPT/HCPCS: 77063; 77067

== ENCOUNTER → 2022-09-21 | Outpatient (CLI) | payer BC, SELFPAY ==
[2022-09-21 08:01] LABS: Bacteria 0 SEEN /hpf (None Seen); Mucous, Urine 0 SEEN /hpf (<or=2+); Red Blood Cells-Urine 0 SEEN /hpf (0-5); Squamous Epithelial Cells - UA 0 SEEN /hpf (5-10); White Blood Cells 0 SEEN /hpf (0-5)
[2022-09-21 10:10] LABS: Absolute Lymphocyte Count 2.48 X10^3/uL (0.83-4.51); Absolute Neutrophil Count 4.7 X10^3/uL (2.0-7.7); Basophil# 0.05 X10^3/uL; Basophil% 0.6 % (0-1); Eosinophil# 0.11 X10^3/uL; Eosinophils% 1.4 % (0-5); Hematocrit 45.3 % (37-47); Hemoglobin 14.9 g/dL (12.0-15.0); Lymphocyte # 2.48 X10^3/ul (0.83-4.51); Lymphocyte % 30.5 % (19-41); Mean Corp Hgb Conc 32.9 g/dL (32-36); Mean Corpuscular Hgb 29.2 pg (27.0-32.0); Mean Corpuscular Volume 88.8 fL (81-99); Mean Platelet Vol. 10.1 fl (6.2-12.0); Monocyte# 0.81 X10^3/uL; NRBC Flagged by Analyzer 0 % (0-5); Neutrophil # 4.65 X10^3/uL (2.7-7.7); Neutrophil % 57.1 % (47-70); Platelet Count 289 K/mm3 (150-450); RBC Distribution Width CV 12.2 % (11.6-14.6); RBC Distribution Width SD 39.8 fl (35.1-43.9); White Blood Count 8.1 K/mm3 (4.4-11.0)
[2022-09-21 10:35] LABS: Color, Urine Yellow (Yellow); Glucose, Dipstick Normal (Normal); Hemoglobin A1c 5.8 % (3.8-5.6); Ketone-Dipstick Negative (Negative); Leukocyte Esterase-Dipstick Negative /ul (Negative); Nitrite-Dipstick Negative (Negative); Occult Blood-Urine Negative /ul (Negative); Protein-Dipstick Negative (Negative); Urine Bilirubin Dipstick Negative (Negative); Urine Clarity Sl. Cloudy (Clear); Urine Urobilinogen Normal (Normal)
[2022-09-21 10:36] LABS: Vitamin D,25 Hydroxy 31.3 ng/mL
[2022-09-21 11:01] LABS: AST(SGOT) 18 U/L (15-37); Alanine Aminotransfer ALT/SGPT 23 U/L (13-56); Albumin, Serum 3.7 g/dL (3.2-5.0); Alkaline Phosphatase 89 U/L (45-117); Anion Gap 8 (5-15); BUN 10 mg/dL (7-18); BUN/Creat Ratio 15.8 RATIO (10-20); Calcium,Total 9.3 mg/dL (8.5-10.1); Chloride 105 mmol/L (98-107); Creatinine, Serum 0.63 mg/dL (0.55-1.02); EST Glomerular Filtration Rate 101 mL/min (>60); Est Glom Filt Rate - Afr Amer 122 mL/min (>60); Globulin 3.6 g/dL (2.2-4.2); Glucose 105 mg/dL (74-106); Potassium 4.1 mmol/L (3.5-5.1); Protein, Total 7.3 g/dL (6.4-8.2); Sodium Level 140 mmol/L (136-145)
== END | disposition home or self-care (01) ==
LOC: MTLAB 07:55
PROVIDERS: PCP Family Medicine; Referring Provider Family Medicine; Visit Provider Family Medicine
DX: I10 Essential (primary) hypertension (principal); R73.02 Impaired glucose tolerance (oral); E55.9 Vitamin D deficiency, unspecified
CPT/HCPCS: 36415; 80053; 81001; 82306; 83036; 85025

== ENCOUNTER → 2023-03-18 | Outpatient (CLI) | payer BC, SELFPAY ==
--- NOTE | 2023-03-18 07:52 | BI_ITS ---
MAMMOGRAPHY - BILATERAL SCREENING REASON FOR EXAM: Female, 62 years old. Routine annual screening examination. PERTINENT HISTORY: Aunt with breast cancer. TECHNIQUE: Digital bilateral breast katie (3D mammographic acquisition) in the CC and MLO projections. 2-D mediolateral oblique (MLO) and craniocaudad (CC) views of both breasts were obtained. CAD: Full Field Digital Mammography with Computer Added Detection was performed. COMPARISON: Comparison is made with prior study dated March 17, 2022 and March 13, 2021. FINDINGS: Breast Composition: The breasts are heterogeneously dense, which may obscure small masses. There are no dominant masses or suspicious calcifications. No other significant abnormalities are identified. There has been no significant change since the prior study. BI/SCRN MAMM (CAD)W/KATIE BILAT IMPRESSION: Stable bilateral screening mammogram. Yearly follow-up mammogram recommended. (A) ASSESSMENT CATEGORY: BIRADS Category 1: Negative. A letter regarding these results will be sent to the patient by the facility within 30 days. Approximately 10% of breast cancers are not detected by mammography. A normal mammogram should not delay biopsy of a clinically suspicious abnormality. [id number] Electronically Signed: Faraz Bai MD at 8:45 EDT ,
== END | disposition home or self-care (01) ==
LOC: OPBI 07:48
PROVIDERS: PCP Family Medicine; Referring Provider Student in an Organized Health Care Education/Training Program; Visit Provider Student in an Organized Health Care Education/Training Program
DX: Z12.31 Encounter for screening mammogram for malignant neoplasm of breast (principal); Z80.3 Family history of malignant neoplasm of breast
CPT/HCPCS: 77063; 77067

== ENCOUNTER → 2023-03-22 | Outpatient (CLI) | payer BC, SELFPAY ==
[2023-03-22 08:23] LABS: Bacteria 0 SEEN /hpf (None Seen); Mucous, Urine 0 SEEN /hpf (<or=2+); Red Blood Cells-Urine 0 SEEN /hpf (0-5); White Blood Cells 0 SEEN /hpf (0-5)
[2023-03-22 10:14] LABS: Absolute Lymphocyte Count 2.52 X10^3/uL (0.83-4.51); Absolute Neutrophil Count 4.2 X10^3/uL (2.0-7.7); Basophil# 0.04 X10^3/uL; Basophil% 0.5 % (0-1); Eosinophil# 0.09 X10^3/uL; Eosinophils% 1.2 % (0-5); Hematocrit 45.4 % (37-47); Hemoglobin 14.8 g/dL (12.0-15.0); Lymphocyte # 2.52 X10^3/ul (0.83-4.51); Lymphocyte % 33.4 % (19-41); Mean Corp Hgb Conc 32.6 g/dL (32-36); Mean Corpuscular Hgb 29.4 pg (27.0-32.0); Mean Corpuscular Volume 90.3 fL (81-99); Monocyte# 0.71 X10^3/uL; Monocyte% 9.4 % (0-10); NRBC Flagged by Analyzer 0 % (0-5); Neutrophil # 4.17 X10^3/uL (2.7-7.7); Neutrophil % 55.2 % (47-70); Platelet Count 268 K/mm3 (150-450); RBC Distribution Width CV 12.3 % (11.6-14.6); RBC Distribution Width SD 40.5 fl (35.1-43.9); Red Blood Count 5.03 M/mm3 (4.2-5.4); White Blood Count 7.6 K/mm3 (4.4-11.0)
[2023-03-22 10:14] LABS: Color, Urine Yellow (Yellow); Glucose, Dipstick Normal (Normal); Ketone-Dipstick Negative (Negative); Leukocyte Esterase-Dipstick 25 /ul (Negative); Nitrite-Dipstick Negative (Negative); Occult Blood-Urine Negative /ul (Negative); Protein-Dipstick Negative (Negative); Urine Bilirubin Dipstick Negative (Negative); Urine Clarity Clear (Clear); Urine Urobilinogen Normal (Normal); Urine pH 6.5 (5.0 - 8.0)
[2023-03-22 10:45] LABS: Vitamin D,25 Hydroxy 50.2 ng/mL
[2023-03-22 10:52] LABS: ALB/GLOB Ratio 0.9 RATIO (0.9-2.4); AST(SGOT) 19 U/L (15-37); Alanine Aminotransfer ALT/SGPT 22 U/L (13-56); Albumin, Serum 3.6 g/dL (3.2-5.0); Alkaline Phosphatase 81 U/L (45-117); Anion Gap 2 (5-15); BUN 10 mg/dL (7-18); BUN/Creat Ratio 14.5 RATIO (10-20); Calcium,Total 9.4 mg/dL (8.5-10.1); Chloride 106 mmol/L (98-107); Creatinine, Serum 0.69 mg/dL (0.55-1.02); EST Glomerular Filtration Rate 91 mL/min (>60); Est Glom Filt Rate - Afr Amer 110 mL/min (>60); Globulin 3.9 g/dL (2.2-4.2); Glucose 98 mg/dL (74-106); Protein, Total 7.5 g/dL (6.4-8.2); Sodium Level 137 mmol/L (136-145)
[2023-03-22 10:58] LABS: Squamous Epithelial Cells - UA 0-5 SEEN /hpf (5-10)
[2023-03-22 11:21] LABS: Hemoglobin A1c 5.9 % (3.8-5.6)
== END | disposition home or self-care (01) ==
LOC: MTLAB 08:19
PROVIDERS: PCP Family Medicine; Referring Provider Family Medicine; Visit Provider Family Medicine
DX: I10 Essential (primary) hypertension (principal); E55.9 Vitamin D deficiency, unspecified; R73.02 Impaired glucose tolerance (oral)
CPT/HCPCS: 36415; 80053; 81001; 82306; 83036; 85025

== ENCOUNTER → 2023-09-17 | Outpatient (CLI) | payer BC, SELFPAY ==
[2023-09-17 10:47] LABS: Absolute Lymphocyte Count 2.71 X10^3/uL (0.83-4.51); Absolute Neutrophil Count 3.9 X10^3/uL (2.0-7.7); Basophil# 0.03 X10^3/uL; Basophil% 0.4 % (0-1); Eosinophil# 0.16 X10^3/uL; Eosinophils% 2.1 % (0-5); Hematocrit 45.2 % (37-47); Hemoglobin 14.7 g/dL (12.0-15.0); Lymphocyte # 2.71 X10^3/ul (0.83-4.51); Lymphocyte % 35.2 % (19-41); Mean Corp Hgb Conc 32.5 g/dL (32-36); Mean Corpuscular Hgb 29.1 pg (27.0-32.0); Mean Corpuscular Volume 89.3 fL (81-99); Mean Platelet Vol. 10.1 fl (6.2-12.0); Monocyte# 0.83 X10^3/uL; Monocyte% 10.8 % (0-10); NRBC Flagged by Analyzer 0 % (0-5); Neutrophil # 3.93 X10^3/uL (2.7-7.7); Neutrophil % 51.1 % (47-70); Platelet Count 289 K/mm3 (150-450); RBC Distribution Width CV 12.6 % (11.6-14.6); RBC Distribution Width SD 41.1 fl (35.1-43.9); Red Blood Count 5.06 M/mm3 (4.2-5.4); White Blood Count 7.7 K/mm3 (4.4-11.0)
[2023-09-17 10:58] LABS: Glucose, Dipstick Normal (Normal); Ketone-Dipstick Negative (Negative); Leukocyte Esterase-Dipstick 25 /ul (Negative); Nitrite-Dipstick Negative (Negative); Occult Blood-Urine Negative /ul (Negative); Protein-Dipstick 15 mg/dl (Negative); Specific Gravity, Urine 1.015 (1.002-1.030); Urine Bilirubin Dipstick Negative (Negative); Urine Urobilinogen Normal (Normal)
[2023-09-17 11:13] LABS: Color, Urine Yellow (Yellow); Hemoglobin A1c 5.6 % (3.8-5.6); Urine Clarity Sl Cldy (Clear)
[2023-09-17 11:18] LABS: AST(SGOT) 24 U/L (15-37); Alanine Aminotransfer ALT/SGPT 24 U/L (13-56); Albumin, Serum 3.7 g/dL (3.2-5.0); Alkaline Phosphatase 75 U/L (45-117); Anion Gap 6 (5-15); BUN 11 mg/dL (7-18); BUN/Creat Ratio 17.2 RATIO (10-20); Calcium,Total 8.7 mg/dL (8.5-10.1); Chloride 104 mmol/L (98-107); Cholesterol 202 mg/dL (200); Creatinine, Serum 0.64 mg/dL (0.55-1.02); EST Glomerular Filtration Rate 99 mL/min (>60); Est Glom Filt Rate - Afr Amer 120 mL/min (>60); Globulin 3.7 g/dL (2.2-4.2); Glucose 98 mg/dL (74-106); High Density Lipoprotein 46 mg/dL; Potassium 3.8 mmol/L (3.5-5.1); Protein, Total 7.4 g/dL (6.4-8.2); Sodium Level 138 mmol/L (136-145); Thyroid Stim Hormone (TSH) 2.41 uIU/mL (0.358-3.74); Triglycerides 118 mg/dL; Very Low Density Lipoprotein 24 mg/dL (5-40)
== END | disposition home or self-care (01) ==
LOC: MTLAB 08:02
PROVIDERS: PCP Family Medicine; Referring Provider Family Medicine; Visit Provider Family Medicine
DX: I10 Essential (primary) hypertension (principal); E55.9 Vitamin D deficiency, unspecified; R73.02 Impaired glucose tolerance (oral)
CPT/HCPCS: 36415; 80053; 80061; 81002; 82306; 83036; 84443; 85025

== ENCOUNTER → 2024-03-20 | Outpatient (CLI) | payer MEDICARE, OTHER, SELFPAY ==
--- NOTE | 2024-03-20 07:45 | BI_ITS ---
MAMMOGRAPHY - BILATERAL SCREENING REASON FOR EXAM: Female, 63 years old. Routine annual screening examination. PERTINENT HISTORY: Aunt with breast cancer. TECHNIQUE: Digital bilateral breast katie (3D mammographic acquisition) in the CC and MLO projections. 2-D mediolateral oblique (MLO) and craniocaudad (CC) views of both breasts were obtained. CAD: Full Field Digital Mammography with Computer Added Detection was performed. COMPARISON: Comparison is made with prior study dated March 18, 2023 and March 17, 2022. FINDINGS: Breast Composition: The breasts are heterogeneously dense, which may obscure small masses. There are no dominant masses or suspicious calcifications. Stable small bilateral benign-appearing axillary lymph nodes. No other significant abnormalities are identified. There has been no significant change since the prior study. BI/SCRN MAMM (CAD)W/KATIE BILAT IMPRESSION: Stable bilateral screening mammogram. Yearly follow-up mammogram recommended. (A) ASSESSMENT CATEGORY: BIRADS Category 2: Benign. A letter regarding these results will be sent to the patient by the facility within 30 days. Approximately 10% of breast cancers are not detected by mammography. A normal mammogram should not delay biopsy of a clinically suspicious abnormality. [id number] Electronically Signed: Faraz Bai MD at 9:34 EDT ,
== END | disposition home or self-care (01) ==
LOC: OPBI 07:44
PROVIDERS: PCP Family Medicine; Referring Provider Family Medicine; Visit Provider Family Medicine
DX: Z12.31 Encounter for screening mammogram for malignant neoplasm of breast (principal); Z80.3 Family history of malignant neoplasm of breast
CPT/HCPCS: 77063; 77067

== ENCOUNTER → 2024-03-21 | Outpatient (CLI) | payer MEDICARE, OTHER, SELFPAY ==
[2024-03-21 08:27] LABS: Bacteria 0 SEEN /hpf (None Seen); Mucous, Urine 0 SEEN /hpf (<or=2+); Red Blood Cells-Urine 0 SEEN /hpf (0-5); Squamous Epithelial Cells - UA 0 SEEN /hpf (5-10)
[2024-03-21 10:01] LABS: Absolute Lymphocyte Count 2.31 X10^3/uL (0.83-4.51); Absolute Neutrophil Count 4.4 X10^3/uL (2.0-7.7); Basophil# 0.05 X10^3/uL; Basophil% 0.7 % (0-1); Eosinophil# 0.11 X10^3/uL; Eosinophils% 1.5 % (0-5); Hematocrit 43.5 % (37-47); Hemoglobin 14.3 g/dL (12.0-15.0); Lymphocyte # 2.31 X10^3/ul (0.83-4.51); Lymphocyte % 30.7 % (19-41); Mean Corp Hgb Conc 32.9 g/dL (32-36); Mean Corpuscular Hgb 29.1 pg (27.0-32.0); Mean Corpuscular Volume 88.6 fL (81-99); Mean Platelet Vol. 10.1 fl (6.2-12.0); Monocyte# 0.67 X10^3/uL; Monocyte% 8.9 % (0-10); NRBC Flagged by Analyzer 0 % (0-5); Neutrophil # 4.37 X10^3/uL (2.7-7.7); Neutrophil % 57.9 % (47-70); Platelet Count 261 K/mm3 (150-450); RBC Distribution Width CV 12.5 % (11.6-14.6); RBC Distribution Width SD 40.9 fl (35.1-43.9); Red Blood Count 4.91 M/mm3 (4.2-5.4); White Blood Count 7.5 K/mm3 (4.4-11.0)
[2024-03-21 10:24] LABS: ALB/GLOB Ratio 0.9 RATIO (0.9-2.4); AST(SGOT) 19 U/L (15-37); Alanine Aminotransfer ALT/SGPT 21 U/L (13-56); Albumin, Serum 3.6 g/dL (3.2-5.0); Alkaline Phosphatase 76 U/L (45-117); Anion Gap 6 (5-15); BUN 11 mg/dL (7-18); BUN/Creat Ratio 15.7 RATIO (10-20); Calcium,Total 9.4 mg/dL (8.5-10.1); Chloride 104 mmol/L (98-107); Cholesterol 185 mg/dL (200); EST Glomerular Filtration Rate 89 mL/min (>60); Est Glom Filt Rate - Afr Amer 108 mL/min (>60); Globulin 3.8 g/dL (2.2-4.2); Glucose 102 mg/dL (74-106); High Density Lipoprotein 45 mg/dL; Magnesium 2.2 mg/dL (1.6-2.6); Potassium 3.8 mmol/L (3.5-5.1); Protein, Total 7.4 g/dL (6.4-8.2); Sodium Level 137 mmol/L (136-145); Triglycerides 142 mg/dL; Very Low Density Lipoprotein 28 mg/dL (5-40)
[2024-03-21 10:45] LABS: Color, Urine Yellow (Yellow); Glucose, Dipstick Normal (Normal); Ketone-Dipstick Negative (Negative); Leukocyte Esterase-Dipstick 25 /ul (Negative); Nitrite-Dipstick Negative (Negative); Occult Blood-Urine Negative /ul (Negative); Protein-Dipstick Negative (Negative); Urine Bilirubin Dipstick Negative (Negative); Urine Clarity Clear (Clear); Urine Urobilinogen Normal (Normal); Urine pH 6.5 (5.0 - 8.0)
[2024-03-21 11:14] LABS: White Blood Cells 0-5 SEEN /hpf (0-5)
[2024-03-21 11:26] LABS: Hemoglobin A1c 5.6 % (3.8-5.6)
== END | disposition home or self-care (01) ==
LOC: MTLAB 08:16
PROVIDERS: PCP Family Medicine; Referring Provider Family Medicine; Visit Provider Family Medicine
DX: I10 Essential (primary) hypertension (principal); R73.02 Impaired glucose tolerance (oral); E55.9 Vitamin D deficiency, unspecified
CPT/HCPCS: 36415; 80053; 80061; 81001; 82306; 83036; 83735; 85025

== ENCOUNTER 2024-03-29 06:47 | Emergency (ER) | payer MEDICARE, OTHER, SELFPAY ==
[2024-03-29 06:48] VITALS: BP 159/85; PULSE 88; RESP 14; TEMP 36.3; O2SAT 96; BMI 25.6
--- NOTE | 2024-03-29 07:09 | EKG12_ITS ---
Test Reason : CP Blood Pressure : / mmHG Vent. Rate : 088 BPM Atrial Rate : 088 BPM P-R Int : 146 ms QRS Dur : 100 ms QT Int : 356 ms P-R-T Axes : 046 -09 -11 degrees QTc Int : 430 ms Normal sinus rhythm Incomplete right bundle branch block Left ventricular hypertrophy with repolarization abnormality ( Gerardo product ) Abnormal ECG Confirmed by JUSTIN BERTRAND, TYLER ([id number]), film editor TINA RIVERA ([id number]) on 03/30/2024 9:29:14 AM Referred By: TRELL Confirmed By:TYLER ANDERSON MD
[2024-03-29 07:16] LABS: Absolute Neutrophil Count 5.2 X10^3/uL (2.0-7.7); Basophil# 0.05 X10^3/uL; Basophil% 0.5 % (0-1); Eosinophil# 0.12 X10^3/uL; Eosinophils% 1.2 % (0-5); Hematocrit 43.8 % (37-47); Hemoglobin 14.9 g/dL (12.0-15.0); Lymphocyte % 36.2 % (19-41); Mean Corpuscular Hgb 29.7 pg (27.0-32.0); Mean Corpuscular Volume 87.3 fL (81-99); Mean Platelet Vol. 9.7 fl (6.2-12.0); Monocyte# 0.94 X10^3/uL; Monocyte% 9.4 % (0-10); NRBC Flagged by Analyzer 0 % (0-5); Neutrophil # 5.21 X10^3/uL (2.7-7.7); Neutrophil % 52.4 % (47-70); Platelet Count 269 K/mm3 (150-450); RBC Distribution Width CV 12.7 % (11.6-14.6); RBC Distribution Width SD 40.1 fl (35.1-43.9); Red Blood Count 5.02 M/mm3 (4.2-5.4)
--- NOTE | 2024-03-29 07:17 | ED.RN ---
NO OLD EKGS
--- NOTE | 2024-03-29 07:20 | RAD_ITS ---
STUDY: X-RAY CHEST REASON FOR EXAM: Female, 63 years old. CP TECHNIQUE: PA and lateral views of the chest. COMPARISON: None. FINDINGS: EKG electrodes are seen. Hyperinflation. The lungs are clear. There is no demonstrated pleural abnormality. Normal size heart. Normal mediastinum and andreia. Normal visualized pulmonary arteries. Normal visualized aortic arch and descending thoracic aorta. There are degenerative changes of the visualized thoracic spine. Normal visualized ribs, clavicles, and shoulders. There is no demonstrated abnormality of the visualized soft tissue structures of the upper abdomen. RAD/Chest PA and Lateral IMPRESSION: Hyperinflation. The lungs are clear. Electronically Signed: Faraz Bai MD at 7:34 EDT ,
--- NOTE | 2024-03-29 07:21 | EX.ED.DYSGE1 ---
HPI History of Present Illness Chief Complaint: Chest Pain Informant: patient and spouse/S.O. Narrative Narrative: Patient is a 63-year-old female with past medical history of hypertension. She reports that she went to her family doctor the other day secondary to yearly evaluation for her high blood pressure. At which time they did an EKG and she was informed that there are some nonspecific changes on it. She states when she was informed that she noted that she was having some left-sided chest discomfort. She states it is a dull ache without radiation and she does states there is no associated nausea vomiting or diaphoresis. 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 She states she does not remember a single event leading to onset of chest pain but she has been thinking about the discomfort since she was informed of her atypical EKG and need for stress test in order to ensure there is no signs of cardiac damage she comes in for evaluation. She denies any recent travel surgery hormone use or history of DVT/PE. [facility] Medical History Wears glasses Thyroid disease Injury of head and neck Leg cramps Chronic neck and back pain Knee pain HTN (hypertension) Home Medications ?Medication ?Instructions ?Recorded ?Last Taken ?Type amlodipine 5 mg tablet (Norvasc) 5 mg PO DAILY 05/13/20 05/02/21 05:00 History cholecalciferol (vitamin D3) 25 25 mcg PO DAILY 05/13/20 Unknown History mcg (1,000 unit) capsule (Vitamin D3) multivitamin with minerals 1 tab PO DAILY 05/13/20 Unknown History (Hair,Skin and Nails tablet) cinnamon bark 500 mg capsule 2,000 mg PO DAILY 03/29/24 Unknown History (Cinnamon) Allergy/AdvReac Type Severity Reaction Status Date / Time lisinopril Allergy Mild Swelling Verified 03/29/24 06:52 Family History Mother Hypertension Thyroid disorder Hypercholesterolemia Father Heart disease NHL (nodular histiocytic lymphoma) Surgical History History of dilatation and curettage History of oral surgery History of uterine fibroid Hx of colonoscopy Hx of one miscarriage Social History Smoking Status: Never smoker alcohol intake: never ROS ROS ED Constitutional Constitutional ED: Denies chills or fever(s) Eyes Eyes: Denies blurry vision or change in vision ENT ENT ED: Denies sore throat Cardiovascular Cardiovascular: Reports chest pain; Denies palpitations or racing heartbeat Respiratory/Chest Respiratory/Chest: Denies cough or dyspnea Gastrointestinal Gastrointestinal: Denies abdominal pain, diarrhea, nausea or vomiting Genitourinary Genitourinary ED: Denies dysuria Musculoskeletal Musculoskeletal: Denies back pain Integumentary Denies rash Neurologic Neurologic: Denies headache(s) Psychiatric Psychiatric: Reports anxiety Hematologic/Lymphatic Hematologic/Lymphatic: Denies easy bleeding or easy bruising EXAM Physical Exam Const Vital Signs: 03/29/24 06:48 03/29/24 06:54 03/29/24 07:48 Temperature 97.3 F L Temperature Source Temporal Pulse Rate 88 78 Respiratory Rate 14 16 Respiratory Effort Normal Blood Pressure 159/85 H 141/75 H Blood Pressure Mean 109 97 Pulse Ox 96 98 Oxygen Delivery Method Room Air Room Air Positive well nourished and well developed General Appearance ED: well developed; Negative for pallor HEENT HEENT Narrative: Normocephalic atraumatic Eyes PERRL and EOMs intact bilaterally General Eye ED: Negative for pale conjunctiva or scleral icterus Neck supple and no JVD Neck Narrative: No carotid bruit noted Chest Wall Chest Narrative: There is reproducible left anterior chest wall pain rib regions 4-6 that patient states is similar nature to the pain she has been experiencing over the last 24 hours without bony deformity or crepitance Resp normal respiratory effort and clear to auscultation bilaterally Resp Narrative: No nasal flaring retractions tachypnea or accessory muscle use Cardio regular rate and regular rhythm Rate: other Other Details: Heart is regular rate and rhythm without murmurs rubs or gallops Radial and carotid pulses are equal and symmetric GI normal to inspection, nondistended, normoactive bowel sounds, non-tender, non-distended and no masses GI Narrative: No voluntary guarding or rigidity or pulsatile mass Auscultation: normoactive bowel sounds Palpation: soft Extremity normal to inspection Extremity Narrative: No asymmetric edema no pitting edema negative Homans' sign bilaterally Neuro oriented x3, CN's II-XII intact bilaterally and no sensory deficits noted Sensorium / Orientation: alert Motor Exam: strength 5/5 throughout Psych Psych Narrative: Patient is mildly nervous/anxious affect Skin no rashes or lesions noted General Skin Exam: Negative for jaundice or pallor MDM MDM MDM Narrative Medical decision making narrative: Patient presented to the ER hypertensive but has a past medical history of this and otherwise with stable vitals. She reported left-sided chest discomfort for over 12 hours and states that it has been relatively constant but that she was able to sleep through it. There is no associated nausea vomiting diaphoresis or shortness of breath. Differential diagnosis is for musculoskeletal chest wall pain versus pneumonia versus pneumothorax versus pleural effusion versus acute coronary syndrome versus pulmonary embolus and/or dissection. The patient has equal radial and carotid pulses. Her mediastinum is not widened. Her D-dimer is normal and this goes against PE or dissection. The patient's troponin is also not elevated going against acute coronary syndrome and EKG does not show any acute signs of STEMI. Therefore at this time with negative troponin and D-dimer as well as normal chest x-ray do not feel that this is cardiac or lung in pathology and is most likely related to musculoskeletal pathology that is reproducible in nature and therefore patient can be discharged home continue hypertensive medication and keep her outpatient stress test as directed by her family doctor Lab Data Attestation: I reviewed the patient's lab results. Labs: Laboratory Results - last 24 hr 03/29/24 06:50 WBC 10.0 RBC 5.02 Hgb 14.9 Hct 43.8 MCV 87.3 MCH 29.7 MCHC 34.0 RDW Std Deviation 40.1 RDW Coeff of Chepe 12.7 Plt Count 269 MPV 9.7 Immature Gran % (Auto) 0.300 Neut % (Auto) 52.4 Lymph % (Auto) 36.2 [place] % (Auto) 9.4 Eos % (Auto) 1.2 Baso % (Auto) 0.5 Absolute Neuts (auto) 5.2 Absolute Lymphs (auto) 3.60 Nucleated RBC % 0 D-Dimer Quant (PE/DVT) 0.33 Sodium 138 Potassium 3.5 Chloride 106 Carbon Dioxide 25.0 Anion Gap 7 BUN 9 Creatinine 0.68 Estim Creat Clear Calc 66.34 Est GFR (MDRD) Af Amer 112 Est GFR (MDRD) Non-Af 93 BUN/Creatinine Ratio 13.3 Glucose 124 H Calcium 9.3 Magnesium 2.2 Troponin I High Sens 5 Radiography Diagnostic Testin view chest x-ray as interpreted by the emergency medicine physician reveals no acute infiltrate pneumothorax pleural effusion or widening the mediastinum Discharge Plan Triage Chief Complaint: Chest Pain ED Provider: Titus Kumar Dx/Rx/DC Orders Clinical Impression: Nonspecific chest pain, Hypertension, Incomplete right bundle branch block Instructions: Right Bundle Branch Block, ED Chest Pain, Uncertain Cause, ED Hypertension, Established Prescriptions: No Action amlodipine [Norvasc] 5 mg tablet 5 mg PO DAILY multivitamin with minerals [Hair,Skin and Nails] Tablet 1 tab PO DAILY cholecalciferol (vitamin D3) [Vitamin D3] 25 mcg (1,000 unit) capsule 25 mcg PO DAILY cinnamon bark [Cinnamon] 500 mg capsule 2,000 mg PO DAILY Primary Care Provider: Vlad Fitzpatrick Referrals: Vlad Fitzpatrick MD [Primary Care Provider] - Activity Restrictions/Additional Instructions: Please keep the outpatient stress test that was ordered by your family doctor continue your home medications as directed and return to the ER should you have any further concerns Print Language: Yoruba
[2024-03-29 07:28] LABS: D-Dimer Quantitative (DVT/PE) 0.33 FEU/ug/m (0.27-0.49)
[2024-03-29 07:39] LABS: Anion Gap 7 (5-15); BUN 9 mg/dL (7-18); BUN/Creat Ratio 13.3 RATIO (10-20); Calcium,Total 9.3 mg/dL (8.5-10.1); Chloride 106 mmol/L (98-107); Creatinine, Serum 0.68 mg/dL (0.55-1.02); EST Glomerular Filtration Rate 93 mL/min (>60); Est Glom Filt Rate - Afr Amer 112 mL/min (>60); Estimated Creatinine Clearance 66.34 ml/min; Glucose 124 mg/dL (74-106); Magnesium 2.2 mg/dL (1.6-2.6); Potassium 3.5 mmol/L (3.5-5.1); Sodium Level 138 mmol/L (136-145); Troponin-I HS 5 pg/mL (3.0-54.0)
[2024-03-29 07:48] VITALS: BP 141/75; PULSE 78; RESP 16; O2SAT 98
[2024-03-29 09:00] VITALS: BP 140/72; PULSE 79; RESP 15; O2SAT 97
[2024-03-29 09:54] LABS: Troponin-I HS 5 pg/mL (3.0-54.0)
[2024-03-29 09:57] VITALS: BP 139/74; PULSE 87; RESP 16; TEMP 36.4; O2SAT 100
== END 2024-03-29 10:01 | disposition home or self-care (01) ==
LOC: ED 07:25
PROVIDERS: Emergency Provider Emergency Medicine; PCP Family Medicine; Visit Provider Emergency Medicine
DX: R07.9 Chest pain, unspecified (principal); I45.10 Unspecified right bundle-branch block; I10 Essential (primary) hypertension
CPT/HCPCS: 71046; 80048; 83735; 84484; 85025; 85379; 93005; 99283; A4216

== ENCOUNTER → 2024-03-30 | Outpatient (CLI) | payer MEDICARE, OTHER, SELFPAY ==
--- NOTE | 2024-03-30 12:21 | STRESSREP_ITS ---
Stress Test Report Exercise myocardial perfusion stress test. 63-year-old lady with a history of abnormal EKG Stress protocol: Resting EKG demonstrates with a rate of 83 bpm and an incomplete right bundle branch block, resting blood pressure is 152/82 mmHg. The patient exercised according to the regular Asif protocol for a total duration of 9 minutes attain ing a maximum heart rate of 146 bpm which was 94% of maximum predicted heart rate; the maximum workload was 10.1 metabolic equivalents. At rest there were no ST or T wave changes noted to suggest ischemia and at peak exercise upsloping ST changes only were noted which did not meet the criteria for ischemia. No clinical angina was noted the test was terminated due to the target heart rate being achieved/fatigue. The peak blood pressure was 154/84 mmHg. Rate-pressure product was 21,900. Myocardial perfusion protocol. 11.1 mCi of technetium 99m sestamibi was injected at rest. The patient ex ercised according to regular Asif protocol for total duration of 9 minutes and at peak exercise 34 point mCi of technetium 99m sestamibi was injected stress images were obtained stress and rest images were reconstructed in comparing the short axis vertical long and horizontal long axis. Gated images were also obtained. Perfusion SPECT analysis: Review of the stress images demonstrate normal uptake of tracer noted in all areas of the myocardium. The resting images similarly demonstrate normal uptake of tracer noted in all areas of the myocardium. No areas of reversibility are noted to suggest ischemia no previous infarct was noted. Gated SPECT analysis: The gated ejection fraction is 88%. Conclusion: Normal exercise myocardial perfusion stress test at a high workload Preserved ejection fraction.
== END | disposition home or self-care (01) ==
LOC: CVS 06:00
PROVIDERS: PCP Family Medicine; Referring Provider Family Medicine; Visit Provider Family Medicine
DX: R94.31 Abnormal electrocardiogram [ECG] [EKG] (principal)
CPT/HCPCS: 78452; 93017; A9500

== ENCOUNTER → 2024-05-31 | Outpatient (CLI) | payer MEDICARE, OTHER, SELFPAY ==
[2024-06-06 07:10] LABS: HPV APTIMA, High Risk Negative (Negative)
== END | disposition home or self-care (01) ==
LOC: LABSPEC 16:37
PROVIDERS: PCP Family Medicine; Referring Provider Nurse Practitioner Women's Health; Visit Provider Nurse Practitioner Women's Health
DX: Z12.4 Encounter for screening for malignant neoplasm of cervix (principal)
CPT/HCPCS: 87624; 88175; G0145

== ENCOUNTER 2024-07-08 16:39 | Emergency (ER) | payer MEDICARE, OTHER, SELFPAY ==
[2024-07-08 16:41] VITALS: BP 157/78; PULSE 116; RESP 18; TEMP 36.6; O2SAT 98; BMI 25.3
--- NOTE | 2024-07-08 16:52 | EKG12_ITS ---
Test Reason : PALP Blood Pressure : / mmHG Vent. Rate : 112 BPM Atrial Rate : 112 BPM P-R Int : 136 ms QRS Dur : 106 ms QT Int : 314 ms P-R-T Axes : 063 004 011 degrees QTc Int : 428 ms Sinus tachycardia with occasional Premature ventricular complexes Incomplete right bundle branch block Nonspecific ST abnormality Abnormal ECG Confirmed by JUSTIN BERTRAND, TYLER ([id number]), film editor supervisor TINA RIVERA ([id number]) on 07/10/2024 9:34:27 AM Referred By: KAREN/HONG Confirmed By:TYLER ANDERSON MD
--- NOTE | 2024-07-08 16:52 | RAD_ITS ---
INDICATION: chest pain EXAMINATION/TECHNIQUE: X-RAY - XR Chest 1 View COMPARISON: 03/29/2034 FINDINGS: LINES/DEVICES: None. LUNGS: No consolidation, edema or effusion. No pneumothorax. MEDIASTINUM AND CARDIOVASCULAR STRUCTURES: Cardiac silhouette not enlarged. Central airways and mediastinal contour are unremarkable. BONES AND SOFT TISSUES: Unremarkable. RAD/Chest 1 View (Portable) IMPRESSION: No radiographic evidence of acute cardiopulmonary disease. Electronically Signed: Jesus Manuel Reid DO at 17:09 EDT ,
--- NOTE | 2024-07-08 16:53 | EX.ED.DYSGE1 ---
HPI <TULIO Magdaleno - Last Filed: 07/08/24 18:10> History of Present Illness Chief Complaint: Palpitations Narrative Narrative: Patient is a 63-year-old female with history of hypertension, who was recently admitted here in March, patient had a stress test on March 30, 2024, this was a negative stress test. Patient was diagnosed with a right bundle branch block. Patient states that over the last day, she woke up this morning feeling palpitations in her chest. She states she feels this, then she gets anxious and her heart rate continues to stay elevated. She denies any fever chills nausea or vomiting. Denies any specific pain to states she feels that her heart is beating rapidly. [facility] <TULIO Magdaleno - Last Filed: 07/08/24 18:10> [facility] Medical History Wears glasses Thyroid disease Injury of head and neck Leg cramps Chronic neck and back pain Knee pain HTN (hypertension) Home Medications ?Medication ?Instructions ?Recorded ?Last Taken ?Type amlodipine 5 mg tablet (Norvasc) 5 mg PO DAILY 05/13/20 05/02/21 05:00 History cholecalciferol (vitamin D3) 25 25 mcg PO DAILY 05/13/20 Unknown History mcg (1,000 unit) capsule (Vitamin D3) multivitamin with minerals 1 tab PO DAILY 05/13/20 Unknown History (Hair,Skin and Nails tablet) cinnamon bark 500 mg capsule 2,000 mg PO DAILY 03/29/24 Unknown History (Cinnamon) Allergy/AdvReac Type Severity Reaction Status Date / Time lisinopril Allergy Mild Swelling Verified 07/08/24 16:41 Family History (Updated 05/31/24 @ 14:49 by Cassandra Jhaveri) Mother Hypertension Thyroid disorder Hypercholesterolemia Father Heart disease NHL (nodular histiocytic lymphoma) Aunt Breast cancer Maternal Aunt Breast cancer Maternal- Passed @ Age 98 Surgical History Hx of colonoscopy History of oral surgery History of uterine fibroid Hx of one miscarriage History of dilatation and curettage Social History (Updated 05/31/24 @ 14:50 by Cassandra Jhaveri) household members: spouse current occupational status: retired current occupation: Retired from [employer] Smoking Status: Never smoker alcohol intake: never substance use type: does not use seatbelt use: always do you feel safe at home: Yes additional social history: - [employer] @[employer] ROS <TULIO Magdaleno - Last Filed: 07/08/24 18:10> ROS ED ROS Narrative Constitutional: Negative for fever, chills, weight loss, weakness Eyes: Negative for vision loss, vision change, double vision ENT: Negative for any sore throat, ear pain, congestion Cardiovascular: Negative for any chest pain, tightness. Positive for palpitations Respiratory: Negative for any cough, sputum production, hemoptysis, dyspnea, dyspnea on exertion, orthopnea Gastrointestinal: Negative for any abdominal pain, nausea, vomiting, diarrhea, constipation, blood in stool, blood in vomit : Negative for any urinary frequency, dysuria, retention, blood in urine Muscle skeletal: Negative for any neck pain, back pain Neurological: Negative for any headache, syncope, dizziness Skin: Negative for any rashes, itching, abrasions, lacerations Psychiatric: Negative for any depression, stress, suicidal ideation, homicidal ideation. Positive for anxiety Hematologic: Negative for any excessive bruising, easy bleeding EXAM <TULIO Magdaleno - Last Filed: 07/08/24 18:10> Physical Exam Narrative Exam Narrative: Vital signs reviewed. HEET: Head normocephalic atraumatic, TMs clear bilaterally. Posterior pharynx is clear, moist mucous membranes. Nares clear bilaterally. Neck: Supple with no lymphadenopathy or tenderness. No signs of meningismus. Cardiac: Regular rate and rhythm no murmurs gallops or rubs, equal peripheral pulses bilaterally. There is some irregularity, however I do believe that that is a PVC. Respiratory: Lungs clear to auscultation bilaterally. No chest tenderness. Abdomen: Soft, nontender, nondistended. No abdominal bruit or pulsatile masses. No hepatosplenomegaly Extremities: No peripheral edema, no signs of gross trauma or deformity. Active full range of motion of all extremities. Neuro: Cranial nerves II through XII intact, no focal neurological deficits. Skin: Clean dry and intact with no rash, purpura, petechiae, vesicles or pustules. Backs/flank: No CVA tenderness, no midline spinal tenderness, no deformity. Psych: Normal mood and affect. No SI, HI or acute psychosis. Const Vital Signs: 07/08/24 16:41 07/08/24 17:02 07/08/24 17:47 Temperature 98 F 98 F Temperature Source Temporal Oral Pulse Rate 116 H 100 Respiratory Rate 18 16 Blood Pressure 157/78 H 144/78 H Blood Pressure Mean 104 100 Pulse Ox 98 98 98 Oxygen Delivery Method Room Air Room Air Room Air 07/08/24 18:11 Temperature 98.1 F Temperature Source Pulse Rate 83 Respiratory Rate 16 Blood Pressure 151/76 H Blood Pressure Mean 101 Pulse Ox 99 Oxygen Delivery Method <Dr. Papa Sandoval DO - Last Filed: 07/08/24 22:50> Physical Exam Const Vital Signs: 07/08/24 16:41 07/08/24 17:02 07/08/24 17:47 Temperature 98 F 98 F Temperature Source Temporal Oral Pulse Rate 116 H 100 Respiratory Rate 18 16 Blood Pressure 157/78 H 144/78 H Blood Pressure Mean 104 100 Pulse Ox 98 98 98 Oxygen Delivery Method Room Air Room Air Room Air 07/08/24 18:11 Temperature 98.1 F Temperature Source Pulse Rate 83 Respiratory Rate 16 Blood Pressure 151/76 H Blood Pressure Mean 101 Pulse Ox 99 Oxygen Delivery Method MDM <TULIO Magdaleno - Last Filed: 07/08/24 18:10> [facility] Lab Data Labs: Laboratory Results - last 24 hr 07/08/24 17:00 WBC 11.5 H RBC 5.15 Hgb 15.8 H Hct 44.9 MCV 87.2 MCH 30.7 MCHC 35.2 RDW Std Deviation 39.3 RDW Coeff of Chepe 12.3 Plt Count 304 MPV 9.9 Immature Gran % (Auto) 0.300 Neut % (Auto) 67.0 Lymph % (Auto) 24.7 Louisa % (Auto) 7.2 Eos % (Auto) 0.3 Baso % (Auto) 0.5 Absolute Neuts (auto) 7.7 Absolute Lymphs (auto) 2.83 Nucleated RBC % 0 D-Dimer Quant (PE/DVT) 0.45 Sodium 137 Potassium 3.4 L Chloride 107 Carbon Dioxide 24.0 Anion Gap 6 BUN 10 Creatinine 0.74 Estim Creat Clear Calc 65.98 Est GFR (MDRD) Af Amer 100 Est GFR (MDRD) Non-Af 83 BUN/Creatinine Ratio 13.4 Glucose 164 H Calcium 9.4 Troponin I High Sens 4 B-Natriuretic Peptide 28.1 TSH 1.090 Radiography Diagnostic Testing: Clinical Impression(s) from Imaging Studies Chest X-Ray 07/08/24 16:52 IMPRESSION: No radiographic evidence of acute cardiopulmonary disease. Electronically Signed: Jesus Manuelchelsi ReidDO at 17:09 EDT Reading Location ID and State: [facility] / [place] Tel [phone], Service support , Treatment and Re-Evaluation :: Differential diagnosis includes however is not limited to: ACS, TN, PE, anxiety, electrolyte abnormality, hyperthyroidism Patient appears generally well, vital signs are stable, patient is nontoxic-appearing. Patient's heart rate is 112 on the EKG, patient is in no obvious distress. Patient is feeling her PVCs. I have low suspicion for any ACS or TN secondary to a negative stress test a couple months ago. However patient received a cardiac workup including a TSH, dimer. Chest x-ray 1 view will be obtained. Insert radiology Patient's chest x-ray showed no acute cardiopulmonary pathology. Laboratory values showed a slight leukocytosis with a white blood count of 11.5, patient's D-dimer was negative, no evidence for PE. Patient's chemistries were unremarkable, glucose slight elevated 164, TSH was normal. Troponin was 4 which is negative. BNP was negative. At this time, repeat blood pressure was 100. There is no evidence of any ACS or TN. Patient will go home and follow-up outpatient. She instructed return for any worsening symptoms, patient stable for discharge. <Dr. Papa Sandoval, - Last Filed: 07/08/24 22:50> [facility] Lab Data Labs: Laboratory Results - last 24 hr 07/08/24 17:00 WBC 11.5 H RBC 5.15 Hgb 15.8 H Hct 44.9 MCV 87.2 MCH 30.7 MCHC 35.2 RDW Std Deviation 39.3 RDW Coeff of Chepe 12.3 Plt Count 304 MPV 9.9 Immature Gran % (Auto) 0.300 Neut % (Auto) 67.0 Lymph % (Auto) 24.7 Louisa % (Auto) 7.2 Eos % (Auto) 0.3 Baso % (Auto) 0.5 Absolute Neuts (auto) 7.7 Absolute Lymphs (auto) 2.83 Nucleated RBC % 0 D-Dimer Quant (PE/DVT) 0.45 Sodium 137 Potassium 3.4 L Chloride 107 Carbon Dioxide 24.0 Anion Gap 6 BUN 10 Creatinine 0.74 Estim Creat Clear Calc 65.98 Est GFR (MDRD) Af Amer 100 Est GFR (MDRD) Non-Af 83 BUN/Creatinine Ratio 13.4 Glucose 164 H Calcium 9.4 Troponin I High Sens 4 B-Natriuretic Peptide 28.1 TSH 1.090 Radiography Diagnostic Testing: Clinical Impression(s) from Imaging Studies Chest X-Ray 07/08/24 16:52 IMPRESSION: No radiographic evidence of acute cardiopulmonary disease. Electronically Signed: Jesus Manuel Reid DO at 17:09 EDT Reading Location ID and State: [facility] / [place] Tel [phone], Service support , Treatment and Re-Evaluation :: Differential diagnosis includes however is not limited to: ACS, TN, PE, anxiety, electrolyte abnormality, hyperthyroidism Patient appears generally well, vital signs are stable, patient is nontoxic-appearing. Patient's heart rate is 112 on the EKG, patient is in no obvious distress. Patient is feeling her PVCs. I have low suspicion for any ACS or TN secondary to a negative stress test a couple months ago. However patient received a cardiac workup including a TSH, dimer. Chest x-ray 1 view will be obtained. Insert radiology Patient's chest x-ray showed no acute cardiopulmonary pathology. Laboratory values showed a slight leukocytosis with a white blood count of 11.5, patient's D-dimer was negative, no evidence for PE. Patient's chemistries were unremarkable, glucose slight elevated 164, TSH was normal. Troponin was 4 which is negative. BNP was negative. At this time, repeat blood pressure was 100. There is no evidence of any ACS or TN. Patient will go home and follow-up outpatient. She instructed return for any worsening symptoms, patient stable for discharge. ED attending note: I evaluated the patient in conjunction with the ZO. I agree with his/her statements and above findings. I have personally performed a face to face assessment of the patient and have reviewed the ZO Note. I performed a substantive portion of the visit including all aspects of the following. I personally saw the patient performed chart review, physical exam, reviewed labs, imaging (if obtained), and formulated a treatment and management plan. I have personally reviewed the patient's chest x-ray. Chest x-ray is unremarkable for pulmonary edema, pneumothorax, pneumonia or focal cardiopulmonary abnormality. We considered electrolyte abnormalities, CHF, anemia, VTE, aorta dissection, ACS, thyroid dysfunction. History of physical exam, labs images were not consistent with above differentials. Patient is appropriate for discharge home with close PCP follow-up for further outpatient evaluation and treatment. This note was generated with [employer] dictation software. It may contain incorrect words, spelling, and punctuation that were not noted in review of the chart prior to signing. Discharge Plan Triage Chief Complaint: Palpitations ED Midlevel Provider: Siddharth Wilkes ED Provider: Papa Sandoval Dx/Rx/DC Orders Clinical Impression: Palpitation Instructions: ED Palpitations Prescriptions: No Action amlodipine [Norvasc] 5 mg tablet 5 mg PO DAILY multivitamin with minerals [Hair,Skin and Nails] Tablet 1 tab PO DAILY cholecalciferol (vitamin D3) [Vitamin D3] 25 mcg (1,000 unit) capsule 25 mcg PO DAILY cinnamon bark [Cinnamon] 500 mg capsule 2,000 mg PO DAILY Primary Care Provider: Vlad Fitzpatrick Referrals: Vlad Fitzpatrick MD [Primary Care Provider] - Activity Restrictions/Additional Instructions: You had a negative workup today. Please follow-up outpatient Print Language: Hungarian Disposition Disposition: Home, Self Care Discharge Date/Time: 07/08/24 18:18
[2024-07-08 17:02] VITALS: O2SAT 98
[2024-07-08 17:20] LABS: Absolute Lymphocyte Count 2.83 X10^3/uL (0.83-4.51); Absolute Neutrophil Count 7.7 X10^3/uL (2.0-7.7); Basophil# 0.06 X10^3/uL; Basophil% 0.5 % (0-1); Eosinophil# 0.03 X10^3/uL; Eosinophils% 0.3 % (0-5); Hematocrit 44.9 % (37-47); Hemoglobin 15.8 g/dL (12.0-15.0); Lymphocyte # 2.83 X10^3/ul (0.83-4.51); Lymphocyte % 24.7 % (19-41); Mean Corp Hgb Conc 35.2 g/dL (32-36); Mean Corpuscular Hgb 30.7 pg (27.0-32.0); Mean Corpuscular Volume 87.2 fL (81-99); Mean Platelet Vol. 9.9 fl (6.2-12.0); Monocyte# 0.83 X10^3/uL; Monocyte% 7.2 % (0-10); NRBC Flagged by Analyzer 0 % (0-5); Neutrophil # 7.67 X10^3/uL (2.7-7.7); Platelet Count 304 K/mm3 (150-450); RBC Distribution Width CV 12.3 % (11.6-14.6); RBC Distribution Width SD 39.3 fl (35.1-43.9); Red Blood Count 5.15 M/mm3 (4.2-5.4); White Blood Count 11.5 K/mm3 (4.4-11.0)
[2024-07-08 17:34] LABS: Anion Gap 6 (5-15); BUN 10 mg/dL (7-18); BUN/Creat Ratio 13.4 RATIO (10-20); Calcium,Total 9.4 mg/dL (8.5-10.1); Chloride 107 mmol/L (98-107); Creatinine, Serum 0.74 mg/dL (0.55-1.02); D-Dimer Quantitative (DVT/PE) 0.45 FEU/ug/m (0.27-0.49); EST Glomerular Filtration Rate 83 mL/min (>60); Est Glom Filt Rate - Afr Amer 100 mL/min (>60); Estimated Creatinine Clearance 65.98 ml/min; Glucose 164 mg/dL (74-106); Potassium 3.4 mmol/L (3.5-5.1); Sodium Level 137 mmol/L (136-145); Troponin-I HS 4 pg/mL (3.0-54.0)
[2024-07-08 17:41] LABS: BNP,B-Type NATRIURETIC PEPTIDE 28.1 pg/mL (0-100)
[2024-07-08 17:47] VITALS: BP 144/78; PULSE 100; RESP 16; TEMP 36.6; O2SAT 98
[2024-07-08 18:11] VITALS: BP 151/76; PULSE 83; RESP 16; TEMP 36.7; O2SAT 99
== END 2024-07-08 18:18 | disposition home or self-care (01) ==
PROVIDERS: Nurse Practitioner; Emergency Provider Emergency Medicine; PCP Family Medicine; Visit Provider Emergency Medicine
DX: R00.2 Palpitations (principal); I10 Essential (primary) hypertension; I45.10 Unspecified right bundle-branch block
CPT/HCPCS: 71045; 80048; 83880; 84443; 84484; 85025; 85379; 93005; 99284; A4216

== ENCOUNTER → 2024-08-08 | Outpatient (CLI) | payer MEDICARE, OTHER, SELFPAY ==
--- NOTE | 2024-08-08 08:50 | BD_ITS ---
STUDY: DUAL ENERGY X-RAY ABSORPTIOMETRY / DXA REASON FOR EXAM: Female, 63 years old. [id number] TECHNIQUE: Bone Mineral Density (BMD) measurements of lumbar spine and bilateral hips were obtained. COMPARISON: None. FINDINGS: Lumbar Spine (L1-L4): g/cm2 (0.917) / T-score (-1.2) / Z-score (0.6) Findings are suggestive of osteopenia with a low fracture risk. Left Femur Total: g/cm2 (0.842) / T-score (-0.8) / Z-score (0.4) Left Femoral Neck: g/cm2 (0.707) / T-score (-1.3) / Z-score (0.3) Right Femur Total: g/cm2 (0.834) / T-score (-0.9) / Z-score (0.4) Right Femoral Neck: g/cm2 (0.626) / T-score (-2.0) / Z-score (-0.5) BD/Dexa Bone Density Study IMPRESSION: The patient is considered osteopenic as outlined below according to World [place] Organization (WHO) criteria with a moderate fracture risk. Reference Information: The T-score is the number of standard deviations above or below the standard which is normal for young adults at their peak bone mineral density. The World Health Organization (WHO) interprets the T-scores as follows: Above -1 Normal bone density Between -1 and -2.5 Osteopenia Equal to / or below -2.5 Osteoporosis As a practical clinical guideline, osteopenia may be graded as follows: Mild -1 through -1.5 Moderate -1.6 through -2.0 Severe -2.1 through -2.4 The Z-score is the number of standard deviations above or below age-matched controls. A Z-score of less than -1.5 would be considered abnormal. References: 1. NIH Osteoporosis and Related Bone Diseases www osteo.org 2. International Society for Clinical Densitometry www iscd.org 3. National Osteoporosis Foundation www nof.org Electronically Signed: Faraz Bai MD at 15:08 EST ,
== END | disposition home or self-care (01) ==
LOC: OPBD 08:43
PROVIDERS: PCP Family Medicine; Referring Provider Family Medicine; Visit Provider Family Medicine
DX: Z78.0 Asymptomatic menopausal state (principal)
CPT/HCPCS: 77080

== ENCOUNTER → 2024-09-18 | Outpatient (CLI) | payer MEDICARE, OTHER, SELFPAY ==
[2024-09-18 08:34] LABS: Bacteria 0 SEEN /hpf (None Seen); Mucous, Urine 0 SEEN /hpf (<or=2+); Red Blood Cells-Urine 0 SEEN /hpf (0-5); Squamous Epithelial Cells - UA 0 SEEN /hpf (5-10); White Blood Cells 0 SEEN /hpf (0-5)
[2024-09-18 10:36] LABS: Color, Urine Straw (Yellow); Glucose, Dipstick Normal (Normal); Ketone-Dipstick Negative (Negative); Leukocyte Esterase-Dipstick Negative /ul (Negative); Nitrite-Dipstick Negative (Negative); Occult Blood-Urine Negative /ul (Negative); Protein-Dipstick Negative (Negative); Specific Gravity, Urine 1.005 (1.002-1.030); Urine Bilirubin Dipstick Negative (Negative); Urine Clarity Clear (Clear); Urine Urobilinogen Normal (Normal); Urine pH 6.5 (5.0 - 8.0)
[2024-09-18 10:52] LABS: Absolute Lymphocyte Count 2.37 X10^3/uL (0.83-4.51); Basophil# 0.04 X10^3/uL; Basophil% 0.6 % (0-1); Eosinophil# 0.07 X10^3/uL; Hemoglobin 14.8 g/dL (12.0-15.0); Lymphocyte # 2.37 X10^3/ul (0.83-4.51); Lymphocyte % 32.7 % (19-41); Mean Corp Hgb Conc 32.2 g/dL (32-36); Mean Corpuscular Hgb 28.8 pg (27.0-32.0); Mean Corpuscular Volume 89.5 fL (81-99); Mean Platelet Vol. 10.2 fl (6.2-12.0); Monocyte# 0.73 X10^3/uL; Monocyte% 10.1 % (0-10); NRBC Flagged by Analyzer 0 % (0-5); Neutrophil # 4.03 X10^3/uL (2.7-7.7); Neutrophil % 55.5 % (47-70); Platelet Count 270 K/mm3 (150-450); RBC Distribution Width CV 12.6 % (11.6-14.6); RBC Distribution Width SD 41.6 fl (35.1-43.9); Red Blood Count 5.14 M/mm3 (4.2-5.4); White Blood Count 7.3 K/mm3 (4.4-11.0)
[2024-09-18 11:48] LABS: Cholesterol 217 mg/dL (200); High Density Lipoprotein 51 mg/dL; Magnesium 2.2 mg/dL (1.6-2.6); Triglycerides 147 mg/dL; Very Low Density Lipoprotein 29 mg/dL (5-40)
[2024-09-18 12:09] LABS: Hemoglobin A1c 5.7 % (3.8-5.6)
== END | disposition home or self-care (01) ==
LOC: MTLAB 08:28
PROVIDERS: PCP Family Medicine; Referring Provider Family Medicine; Visit Provider Family Medicine
DX: I10 Essential (primary) hypertension (principal); R73.02 Impaired glucose tolerance (oral)
CPT/HCPCS: 36415; 80061; 81001; 83036; 83735; 84443; 85025

== ENCOUNTER → 2025-03-21 | Outpatient (CLI) | payer MEDICARE, OTHER, SELFPAY ==
--- NOTE | 2025-03-21 07:57 | BI_ITS ---
EXAM: SCRN MAMM (CAD)W/KATIE BILAT DATE: 03/21/2025 CLINICAL HISTORY: F, Age 64 y/o , SCREENING FOR BREAST CANCER TECHNIQUE: SCRN MAMM (CAD)W/KATIE BILAT COMPARISON: Prior exam(s) dated 03/20/2024, 03/18/2023, 03/17/2022. FINDINGS: TISSUE DENSITY: The breasts are heterogeneously dense, which may obscure small masses. The mammogram demonstrates that the patient has dense breasts. Supplemental screening with whole breast ultrasound or MRI may be considered for further evaluation. Bilateral Breast Mammographic Findings: No significant masses, calcifications or other abnormalities are identified. BI/SCRN MAMM (CAD)W/KATIE BILAT IMPRESSION: There is no mammographic evidence of malignancy. OVERALL FINAL ASSESSMENT BI-RADS 1: NEGATIVE. RECOMMEND ANNUAL MAMMOGRAPHIC SCREENING. RECOMMENDATION: Routine annual follow-up in 1 Year A letter with findings and recommendations will be mailed to the patient. Reading Location: [id number]
== END | disposition home or self-care (01) ==
LOC: OPBI 07:56
PROVIDERS: PCP Family Medicine; Referring Provider Nurse Practitioner Women's Health; Visit Provider Nurse Practitioner Women's Health
DX: Z12.31 Encounter for screening mammogram for malignant neoplasm of breast (principal)
CPT/HCPCS: 77063; 77067

== ENCOUNTER → 2025-03-28 | Outpatient (CLI) | payer MEDICARE, OTHER, SELFPAY ==
[2025-03-28 09:48] LABS: Red Blood Cells-Urine 0 SEEN /hpf (0-5)
[2025-03-28 12:08] LABS: Hematocrit 45.1 % (37-47); Hemoglobin 15.2 g/dL (12.0-15.0); Immature Granulocytes Count 0.020 X10^3/uL (0.0-0.0); Mean Corp Hgb Conc 33.7 g/dL (32-36); Mean Corpuscular Volume 89.5 fL (81-99); Mean Platelet Vol. 10.0 fl (6.2-12.0); NRBC Flagged by Analyzer 0 % (0-5); Platelet Count 256 K/mm3 (150-450); RBC Distribution Width CV 12.3 % (11.6-14.6); RBC Distribution Width SD 40.4 fl (35.1-43.9); Red Blood Count 5.04 M/mm3 (4.2-5.4); White Blood Count 7.3 K/mm3 (4.4-11.0)
[2025-03-28 12:27] LABS: Color, Urine Yellow (Yellow); Glucose, Dipstick Normal (Normal); Ketone-Dipstick Negative (Negative); Leukocyte Esterase-Dipstick 25 /ul (Negative); Nitrite-Dipstick Negative (Negative); Occult Blood-Urine 10 /ul (Negative); Protein-Dipstick 30 mg/dl (Negative); Specific Gravity, Urine 1.020 (1.002-1.030); Urine Bilirubin Dipstick Negative (Negative)
[2025-03-28 12:34] LABS: Mucous, Urine 2+ /hpf (<or=2+); Squamous Epithelial Cells - UA 0-5 SEEN /hpf (5-10)
[2025-03-28 14:20] LABS: AST(SGOT) 24 U/L (<=31); Alanine Aminotransfer ALT/SGPT 14 U/L (<=34); Albumin, Serum 4.3 g/dL (3.4-4.8); Alkaline Phosphatase 69 U/L (35-104); Anion Gap 12 (5-15); BUN 9 mg/dL (4-19); BUN/Creat Ratio 13.0 RATIO (10-20); Calcium,Total 9.8 mg/dL (7.6-11.0); Carbon Dioxide 23.7 mmol/L (21.0-32.0); Chloride 102 mmol/L (98-108); Cholesterol 200 mg/dL (<=200); Globulin 3.2 g/dL (2.2-4.2); Glucose 96 mg/dL (70-99); Low Density Lipoprotein Calc. 129 mg/dL; Magnesium 2.1 mg/dL (1.5-2.2); Potassium 4.0 mmol/L (3.3-5.1); Triglycerides 122 mg/dL; Very Low Density Lipoprotein 24 mg/dL (5-40); Vitamin D,25 Hydroxy 55.7 ng/mL (30-100); cholesterol:hdl ratio screen 4.26
--- OUTSIDE RECORDS SUMMARY | 2025-03-28 19:20 | XMS RPT_ITS | CCD ---
Author Organization [facility]ini[facility] Care Team Providers Care Digital Asset Manager Name Role Phone Dr. Vlad Fitzpatrick Primary Care Provider Dr. Vlad Fitzpatrick Referring Provider Dr. Tonie Kahn Attending Provider Nitin Whitaker Attending Unavailable SchVlad melara Primary Care Unavailable Vlad Fitzpatrick Consulting Unavailable SchVlad melara Referring Unavailable Vlad Fitzpatrick Primary Care Unavailable Lori Sidhu NP Referring Unavailable Lori Sidhu NP Attending Unavailable Vlad Fitzpatrick Primary Care Unavailable SchVlad melara Attending Unavailable Vlad Fitzpatrick Referring Unavailable Vlad Fitzpatrick Primary Care Unavailable Vlad Fitzpatrick Attending Unavailable Vlad Fitzpatrick Referring Unavailable Schinyonatan, Vlad Peraza Primary Care Unavailable Vlad Fitzpatrick Attending Unavailable SchVlad melara Referring Unavailable Thea SUPERVISOR BLUEPRINTING AND PHOTOCOPYLori Referring Unavailable Vlad Fitzpatrick Primary Care Unavailable Thea SUPERVISOR BLUEPRINTING AND PHOTOCOPYLroi Attending Unavailable Titus Kumar Attending Unavailable Schinyonatan, Vlad Peraza Primary Care Unavailable Schinyonatan, Vlad Peraza Primary Care Unavailable Paap Sandoval Attending Unavailable Schinyonatan, Vlad Peraza Primary Care Unavailable Avery Fonseca Attending Unavailable Vlad Fitzpatrick Referring Unavailable SchVlad melara Primary Care Unavailable Thea SUPERVISOR BLUEPRINTING AND PHOTOCOPYLori Attending Unavailable Vlad Fitzpatrick Referring Unavailable Dr. Vlad Fitzpatrick MD Primary Care Provider [phone]( [phone] Thea SUPERVISOR BLUEPRINTING AND PHOTOCOPY-Lori Nieves Attending Provider [phone] Thea SUPERVISOR BLUEPRINTING AND PHOTOCOPY-CLori Referring Provider Allergies Allergy Classification Reported Allergen(s) Allergy Type Date of Onset Reaction(s) Facility (5 sources) Lisinopril Drug Allergy 05-02-2021 Swelling [facility] Comment on above: of the lips (1 source) Lisinopril Drug Allergy 09-22-2024 [facility] Repository Medications Current Medications Medication Drug Class(es) Dates Sig (Normalized) Sig (Original) amLODIPine 5 mg oral tablet (5 sources) Dihydropyridine Calcium Channel Peyton Start: 05-13-2020 take 1 tablet by mouth once daily Amlodipine (Norvasc) 5 mg tablet Active 5 mg PO DAILY May 13, 2020 12:00am calcium carbonate 1500 mg oral tablet (1 source) Start: 09-22-2024 take 1 tablet by mouth once daily Calcium Carbonate (Calcium 600) 600 mg calcium (1,500 mg) tablet Active 600 mg PO daily September 22, 2024 1:00am cholecalciferol 0.025 mg oral capsule (5 sources) Vitamin D Start: 05-13-2020 take 1 capsule by mouth once daily Cholecalciferol (Vitamin D3) (Vitamin D3) 25 mcg (1,000 unit) capsule Active 25 ug PO DAILY May 13, 2020 12:00am cinnamon bark 500 mg oral capsule (2 sources) Start: 03-29-2024 End: 09-05-2024 take 1 capsule by mouth once daily Cinnamon Bark (Cinnamon) 500 mg capsule Active 1000 mg PO DAILY September 05, 2024 1:22pm 24 hr metoprolol succinate 50 mg extended release oral tablet (1 source) beta-Adrenergic Peyton Start: 09-22-2024 take 1 tablet by mouth once daily Metoprolol Succinate 50 mg tablet extended release 24 hr Active 50 mg PO daily September 22, 2024 1:00am Multivitamin With Minerals (Hair,Skin And Nails) tablet (5 sources) Start: 05-13-2020 take 1 tablet by mouth once daily Multivitamin With Minerals (Hair,Skin And Nails) tablet Active 1 TABLET PO DAILY May 13, 2020 10:32am Start: 05-13-2020 Multivitamin W ith Minerals (Hair,Skin And Nails) tablet Active 1 {tbl} PO DAILY May 13, 2020 12:00am Start: 05-13-2020 take 1 tablet by dilshad th once daily Multivitamin With Minerals (Hair,Skin And Nails) tablet Active 1 TABLET PO DAILY May 13, 2020 12:00am [place]-3 Fatty Acids 1,000 mg capsule (1 source) Start: 09-22-2024 take 1 capsule by mouth once daily [place]-3 Fatty Acids 1,000 mg capsule Active 1000 mg PO daily September 22, 2024 1:00am Completed/Discontinued Medications Medication Drug Class(es) Dates Sig (Normalized) Sig (Original) calcium carbonate 1250 mg / cholecalciferol 0.01 mg oral tablet (5 sources) Vitamin D Start: 05-13-2020 End: 03-29-2024 Calcium Carbonate-Vitamin D3 (Calcium 500 With D) 500 mg(1,250mg) -400 unit tablet Discontinued 1 {tbl} PO DAILY May 13, 2020 12:00am March 29, 2024 6:52am Problems Active Problems Problem Classification Problem Date Documented Da te Episodic/Chronic Allergic reactions (5 sources) Allergic disorder of skin; Translations: [Allergic contact dermatitis, unspecified cause] 05-13-2020 Episodic Cardiac dysrhythmias (3 sources) Palpitations; Translations: [Palpitations] Onset: 09-22-2024 09-05-2024 Episodic Conduction disorders (1 source) Incomplete right bundle branch block; Translations: [Unspecified right bundle-branch block] 04-06-2024 Chronic Disorders of lipid metabolism (1 source) Hyperlipidemia; Translations: [Hyperlipidemia, unspecified] 09-22-2024 Chronic Essential hypertension (3 sources) Essential (primary) hypertension; Translations: [Hypertensive disorder] Onset: 10-12-2024 09-22-2024 Chronic Comment on above: CONTROLLED ON MED Nonspecific chest pain (2 sources) Chest pain, unspecified; Translations: [Chest pain] Onset: 04-13-2024 04-06-2024 Episodic Other bone disease and musculoskeletal deformities (20 sources) Segmental and somatic dysfunction; Translations: [Segmental and somatic dysfunction of cervical region] 04-18-2019 Episodic Other bone disease and musculoskeletal deformities (4 sources) Segmental and somatic dysfunction of cervical region; Translations: [Nonallopathic lesions, cervical region] 02-23-2023 Episodic Other bone disease and musculoskeletal deformities (4 sources) Segmental and somatic dysfunction of lumbar region; Translations: [Nonallopathic lesions, lumbar region] 02-23-2023 Episodic Other bone disease and musculoskeletal deformities (4 sources) Segmental and somatic dysfunction of pelvic region; Translations: [Nonallopathic lesions, pelvic region] 02-23-2023 Episodic Other bone disease and musculoskeletal deformities (4 sources) Segmental and somatic dysfunction of thoracic region; Translations: [Nonallopathic lesions, thoracic region] 02-23-2023 Episodic Other screening for suspected conditions (not mental disorders or infectious disease) (9 sources) Patient encounter status; Translations: [Encounter for screening for malignant neoplasm of colon] Onset: 04-18-2024 05-02-2021 Episodic Spondylosis; intervertebral disc disorders; other back problems (9 sources) Degeneration of cervical intervertebral disc; Translations: [Other cervical disc degeneration, unspecified cervical region] 10-30-2019 Chronic Spondylosis; intervertebral disc disorders; other back problems (12 sources) Backache; Translations: [Dorsalgia, unspecified] 04-28-2021 Episodic Past or Other Problems Problem Classification Problem Date Documented Da te Episodic/Chronic Residual codes; unclassified (1 source) Asymptomatic menopausal state; Translations: [Asymptomatic menopausal state] Onset: 09-07-2024 Episodic Results Test Name Value Interpretation Reference Range Facility Breast imaging reportOrdered By: Adriana Salinas on 03-21-2025 Study report [facility] Imaging Services [address] [place], [place] [address] SCRN MAMM (CAD)W/KATIE BILAT MR#: [id number] Acct: [id number] Name: LIAM BURR Rep #: [id number] : 1960 F 64 From: Maral Salinas MD PCP: Dr. Vlad Fitzpatrick MD Status: RE G CLI Study:SCRN MAMM (CAD)W/KATIE BILAT Date of Exa m: 03/21/25 Exam# [id number] Ordering Dr: Lori Sidhu SUPERVISOR BLUEPRINTING AND PHOTOCOPY SUPERVISOR BLUEPRINTING AND PHOTOCOPY-C EXAM: SCRN MAMM (CAD)W/KATIE BILAT DATE: 03/21/2025 CLINICAL HISTORY: F, Age 64 y/o , SCREENING FOR BREAST CANCER TECHNIQUE: SCRN MAMM (CAD)W/KATIE BILAT COMPARISON: Prior exam(s) dated 03/20/2024, 03/18/2023, 03/17/2022. FINDINGS: TISSUE DENSITY: The breasts are heterogeneously dense, which may obscure small masses. The mammogram demonstrates that the patient has dense breasts. Supplemental screening with whole breast ultrasound or MRI may be considered for further evaluation. Bilateral Breast Mammographic Findings: No significant masses, calcifications or other abnormalities are identified. BI/SCRN MAMM (CAD)W/KATIE BILAT IMPRESSION: There is no mammographic evidence of malignancy. OVERALL FINAL ASSESSMENT BI-RADS 1: NEGATIVE. RECOMMEND ANNUAL MAMMOGRAPHIC SCREENING. RECOMMENDATION: Routine annual follow-up in 1 Year A letter with findings and recommendations will be mailed to the patient. Reading Location: [facility] CC: SUPERVISOR BLUEPRINTING AND PHOTOCOPY-C Lori Sidhu; Dr. Vlad Fitzpatrick MD ~ Game Warden: Signed [facility] SCRN MAMM (CAD)W/KATIE BILATo n 03-21-2025 SCRN MAMM (CAD)W/KATIE BILAT [facility] Imaging Services [address] [place] [address] [id number] SCRN MAMM (CAD)W/KATIE BILAT MR#: [id number] Acct: [id number] Name: ILAM BURR Rep #: [id number] : 1960 F 64 From: Adriana Salinas MD PCP: Dr. Vlad Fitzpatrick MD Status: [facility] Study: SCRN MAMM (CAD)W/KATIE BILAT Date of Exam: 06/07 Exam# [id number] Ordering Dr: Lori Sidhu NP SUPERVISOR BLUEPRINTING AND PHOTOCOPY -C EXAM: SCRN MAMM (CAD)W/KATIE BILAT DATE: 03/21/2025 CLINICAL HISTORY: F, Age 64 y/o , SCREENING FOR BREAST CANCER TECHNIQUE: SCRN MAMM (CAD)W/KATIE BILAT COMPARISON: Prior exam(s) dated 03/20/2024, 03/18/2023, 03/17/2022. FINDINGS: TISSUE DENSITY: The breasts are heterogeneously dense, which may obscure small masses. The mammogram demonstrates that the patient has dense breasts. Supplemental screening with whole breast ultrasound or MRI may be considered for further evaluation. Bilateral Breast Mammographic Findings: No significant masses, calcifications or other abnormalities are identified. BI/SCRN MAMM (CAD)W/KATIE BILAT IMPRESSION: There is no mammographic evidence of malignancy. OVERALL FINAL ASSESSMENT BI-RADS 1: NEGATIVE. RECOMMEND ANNUAL MAMMOGRAPHIC SCREENING. RECOMMENDATION: Routine annual follow-up in 1 Year A letter with findings and recommendations will be mailed to the patient. Reading Location: [id number] CC: TULIO Sidhu; Dr. Vlad Fitzpatrick MD Game Warden: Signed Normal [facility] 12 Lead EKG performed by [facility] on 09-22-2024 12 Lead EKG performed by [address] [address] 12 Lead EKG performed by [facility] 09/22/24828 MR#: [id number] Acct: [id number] Name: LIAM BURR Rep #: [id number] : 1960 63 From: Avery Fonseca MD Attending Dr: Dr. Avery Fonseca MD Status: DE P AMB Ordering Dr: Avery Fonseca MD Date: 09/22/24 Location: [facility] Sex: F C Admitted: [facility]/12 Lead EKG performed by [facility] ECG Report Interpretation ----Sinus Rhythm -Incomplete right bundle branch block. -Left atrial enlargement. -ST depression -Nondiagnostic. ABNORMAL Electronically signed on 09/22/2024 at 12:[address] Avery Fonseca [employer] Version 8610 09/22/24 1236 Date Avery Fonseca MD CC: Dr. Vlad Fitzpatrick MD Date Dictated: 09/22/24828 Date Transcribed: 09/22/24828 Game Warden: Signed Normal [facility] Cardiology Visit Reporton Cardiology Visit Report [facility] [address] [facility] [place] [address] OFFICE VISIT Date of Service: 09/22/24 MR#: [id number] Acct: [id number] Name: LIAM BURR Rep #: [id number] : 1960 Provider: Dr. 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 The patient been evaluated for palpitations she also carries a history of hypertension and hyperlipidemia. She had thyroid nodules that have been evaluated by ultrasound and felt to be benign. The patient's event started back last summer when she had an EKG done that showed an incomplete right bundle branch block with left trickle hypertrophy and ST segment changes. The patient presented the emergency department with some chest discomfort and she underwent stress testing after negative ischemic workup. She did 10 METS on the treadmill going a little over 9 minutes achieving 94% of age-predicted heart rate. There is no significant EKG changes. She had myocardial perfusion scan which showed no evidence of scar or ischemia this was read as a normal stress test at a high workload. The patient also was evaluated back in July 02 the patient had a event monitor done after that due to the palpitations she was complaining of on presentation. She wore the monitor from 07/11/2024 to 07/18/2024 this was predominantly normal sinus rhythm there is an incomplete right bundle branch block which was known from her EKGs, she had 4 episodes of atrial tachycardia longest was 8 beats there was 1 at 3 beat run of VT there were no symptoms documented. There was less than 1% PACs and 6% PVCs. These are almost all isolated PVCs. The patient is EKG in the office today shows normal sinus rhythm at 93 bpm with incomplete right bundle branch block questionable left atrial enlargement and nonspecific ST segment changes which are really unchanged from her previous 2 EKGs in March and June. Patient does have a questionable family history of coronary disease her dad had a myocardial infarction but he had also had extensive mantle radiation due to cancer. She has a history of hypertension which has been very well-controlled in her home environment by the multiple blood pressure she brought in from home. This shows that her systolic has been in the 1 20-1 30 range with heart rates in the 60 to 70 bpm range. The patient does carry history of hyperlipidemia in March 2024 total cholesterol was 185 HDL 45 and LDL 112 with triglycerides of 142. This was repeated recently September 18, 2024 total cholesterol was 217 and LDL was up to 137 triglycerides 147 and HDL 51. The patient is not taking statin therapy. Currently the patient is exercising routinely without any drop in exercise tolerance she is actually increasing her exercise. She reports that her palpitations have essentially resolved and the combination of her exercise and starting low-dose beta-peyton therapy. She feels better on the 50 mg of metoprolol. The patient denies any syncope or near syncope denies any PND orthopnea denies any lower extremity edema. Intake Vital Signs 07/08/24 16:41 09/22/24 11:14 Height 5 ft 4 in 5 ft 4 in Weight: 146 lb BMI 25.0 BP 164/84 H Blood Pressure Location Lt brachial Position Sitting Respiration 16 Pulse 95 Pulse Source Monitor Pulse Oximetry (%) 95 Oxygen Delivery Method room air Intake Visit Reasons: Palpitations (Schinner) Veterinarian Required: No Accompanied by: Self Is patient in pain?: No Allergies lisinopril Allergy (Mild, Verified 09/22/24 11:14) Swelling Medications ???Medication ???Instructions ???Recorded ???Confirmed ???Type amlodipine 5 mg tablet (Norvasc) 5 mg PO DAILY 05/13/20 09/05/24 History cholecalciferol (vitamin D3) 25 25 mcg PO DAILY 05/13/20 09/05/24 History mcg (1,000 unit) capsule (Vitamin D3) multivitamin with minerals 1 tab PO DAILY 05/13/20 09/05/24 History (Hair,Skin and Nails tablet) cinnamon bark 500 mg capsule 1,000 mg PO DAILY 09/05/24 09/05/24 History (Cinnamon) calcium carbonate (Calcium 600) 600 mg PO QDAY 09/22/24 09/22/24 History metoprolol succinate 50 mg 50 mg PO QDAY 09/22/24 09/22/24 History tablet,extended release 24 hr omega-3 fatty acids 1,000 mg 1,000 mg PO QDAY 09/22/24 09/22/24 History capsule Have you fallen in the past year?: No [facility] Medical History (Updated 09/22/24 @ 12:[address] Avery Fonseca MD) Palpitations Wears glasses Thyroid disease Injury of head and neck Leg cramps Chronic neck and back pain Knee pain HTN (hypertension) Surgical History Hx of colonoscopy History of ora (more content not included)... Normal [facility] CBC W/Diff, Automatedon Absolute Lymph 2.37 X10 3/uL Normal 0.83-4.51 [facility] Comment on above: Order Comment: Order Date: 03/28/24 Order Info: 0184-1 - CBCD Performed By: #### L 501.5200, L100.0100, L501.9985, L500.4100, L501.9520 #### [facility] [address] [place], [address] Absolute Neut 4.0 X10 3/uL Normal 2.0-7.7 [facility] Comment on above: Order Comment: Order Date: 03/28/24 Order Info: 0184-1 - CBCD Performed By: #### L 501.5200, L100.0100, L501.9985, L500.4100, L501.9520 #### [facility] [address] [place], [address] Basophils/100 WBC (Bld) 0.6 % Normal 0-1 [facility] Comment on above: Order Comment: Order Date: 03/28/24 Order Info: 0184-1 - CBCD Performed By: #### L 501.5200, L100.0100, L501.9985, L500.4100, L501.9520 #### [facility] [address] [place], [address] Eosinophils/100 WBC (Bld) 1.0 % Normal 0-5 [facility] Comment on above: Order Comment: Order Date: 03/28/24 Order Info: 0184-1 - CBCD Performed By: #### L 501.5200, L100.0100, L501.9985, L500.4100, L501.9520 #### [facility] [address], [address] Erythrocyte distribution width (RBC) [Ratio] 12.6 % Normal 11.6-14.6 [facility] Comment on above: Order Comment: Order Date: 03/28/24 Order Info: 0184-1 - CBCD Performed By: #### L 501.5200, L100.0100, L501.9985, L500.4100, L501.9520 #### [facility] [address] [place], [address] Hematocrit (Bld) [Volume fraction] 46.0 % Normal 37-47 [facility] Comment on above: Order Comment: Order Date: 03/28/24 Order Info: 0184- - CBCD Performed By: #### L 501.5200, L100.0100, L501.9985, L500.4100, L501.9520 #### [facility] [address], [address] Hemoglobin (Bld) [Mass/Vol] 14.8 g/dL Normal 12.0-15.0 [facility] Comment on above: Order Comment: Order Date: 03/28/24 Order Info: 0184-1 - CBCD Performed By: #### L 501.5200, L100.0100, L501.9985, L500.4100, L501.9520 #### [facility] [address] [place], [address] IG% 0.100 Normal 0.0-0.9 [facility] Comment on above: Order Comment: Order Date: 03/28/24 Order Info: 0184-1 - CBCD Result Comment: IG% - Immature Granulocytes (promyelocytes, myelocytes and metamyelocytes) > 1% indicates that a LEFT SHIFT is Present. Performed By: #### L 501.5200, L100.0100, L501.9985, L500.4100, L501.9520 #### [facility] [address] [place], [address] Lymphocytes/100 WBC (Bld) 32.7 % Normal 19-41 [facility] Comment on above: Order Comment: Order Date: 03/28/24 Order Info: 018- - CBCD Performed By: #### L 501.5200, L100.0100, L501.9985, L500.4100, L501.9520 #### [facility] [address] [place], [address] MCH (RBC) [Entitic mass] 28.8 pg Normal 27.0-32.0 [facility] Comment on above: Order Comment: Order Date: 03/28/24 Order Info: 018- - CBCD Performed By: #### L 501.5200, L100.0100, L501.9985, L500.4100, L501.9520 #### [facility] [address] [place], [address] MCHC (RBC) [Mass/Vol] 32.2 g/dL Normal 32-36 [facility] Comment on above: Order Comment: Order Date: 03/28/24 Order Info: 018- - CBCD Performed By: #### L 501.5200, L100.0100, L501.9985, L500.4100, L501.9520 #### [facility] [address] [place], [address] MCV (RBC) [Entitic vol] 89.5 fL Normal 81-99 [facility] Comment on above: Order Comment: Order Date: 03/28/24 Order Info: 018- - CBCD Performed By: #### L 501.5200, L100.0100, L501.9985, L500.4100, L501.9520 #### [facility] [address] [place], [address] Monocytes/100 WBC (Bld) 10.1 % High 0-10 [facility] Comment on above: Order Comment: Order Date: 03/28/24 Order Info: 0184-1 - CBCD Performed By: #### L 501.5200, L100.0100, L501.9985, L500.4100, L501.9520 #### [facility] [address] [place], [address] Neutrophils/100 WBC (Bld) 55.5 % Normal 47-70 [facility] Comment on above: Order Comment: Order Date: 03/28/24 Order Info: 0184-1 - CBCD Performed By: #### L 501.5200, L100.0100, L501.9985, L500.4100, L501.9520 #### [facility] [address] [place], [address] Nucleated RBC (Bld) [#/Vol] 0 10*3/uL Normal 0-5 [facility] Comment on above: Order Comment: Order Date: 03/28/24 Order Info: 0184-1 - CBCD Performed By: #### L 501.5200, L100.0100, L501.9985, L500.4100, L501.9520 #### [facility] [address] [place], [address] Platelet mean volume (Bld) [Entitic vol] 10.2 fL Normal 6.2-12.0 [facility] Comment on above: Order Comment: Order Date: 03/28/24 Order Info: 0184-1 - CBCD Performed By: #### L 501.5200, L100.0100, L501.9985, L500.4100, L501.9520 #### [facility] [address] [place], [address] Platelets (Bld) [#/Vol] 270 10*3/uL Normal 150-450 [facility] Comment on above: Order Comment: Order Date: 03/28/24 Order Info: 0184-1 - CBCD Performed By: #### L 501.5200, L100.0100, L501.9985, L500.4100, L501.9520 #### [facility] [address] [place], [address] RBC (Bld) [#/Vol] 5.14 10*6/uL Normal 4.2-5.4 [facility] Comment on above: Order Comment: Order Date: 03/28/24 Order Info: 0184-1 - CBCD Performed By: #### L 501.5200, L100.0100, L501.9985, L500.4100, L501.9520 #### [facility] [address] [place], [address] RDW SD 41.6 fl Normal 35.1-43.9 [facility] Comment on above: Order Comment: Order Date: 03/28/24 Order Info: 0184-1 - CBCD Performed By: #### L 501.5200, L100.0100, L501.9985, L500.4100, L501.9520 #### [facility] [address] [place], [address] WBC (Bld) [#/Vol] 7.3 10*3/uL Normal 4.4-11.0 [facility] Comment on above: Order Comment: Order Date: 03/28/24 Order Info: 0184-1 - CBCD Performed By: #### L 501.5200, L100.0100, L501.9985, L500.4100, L501.9520 #### [facility] [address] [place], [address] Hemoglobin A1con 09-18-2024 HbA1c (Bld) [Mass fraction] 5.7 % High 3.8-5.6 [facility] Comment on above: Order Comment: Order Date: 03/28/24Order Info: 4548-4 - A1C Result Comment: Norm al < 5.7 % Prediabetic 5.7 - 6.4 % Diabetic >or= 6.5 % Please note range changes. Performed By: #### L 300.8000, L500.2500, L100.0100, L501.5200, L501.4020 #### [facility] [address] [place], [address] Lipid Profileon 09-18-2024 Cholesterol [Mass/Vol] 217 mg/dL High 200 [facility] Comment on above: Order Comment: Order Date: 03/28/24 Order Info: [id number] - LIPID Order Info: [id number] - MG Order Info: 3016-3 - TSH Result Comment: <200 mg/dL Desirable 200-240 mg/dL Borderline >240 mg/dL High Risk Performed By: #### L 501.5200, L100.0100, L501.9985, L500.4100, L501.9520 #### [facility] [address] [place], [address] Cholesterol in HDL [Mass/Vol] 51 mg/dL Normal [facility] Comment on above: Order Comment: Order Date: 03/28/24 Order Info: [id number] - LIPID Order Info: [id number] - MG Order Info: 3016-3 - TSH Result Comment: The drugs N-Acetylcysteine and Metamizole may falsely depress this assay. Reference Range HDL <40 mg/dL Low HDL Cholesterol HDL >or= 60 mg/dL High HDL Cholesterol Performed By: #### L 501.5200, L100.0100, L501.9985, L500.4100, L501.9520 #### [facility] [address] [place], [address] Cholesterol in LDL [Mass/Vol] 137 mg/dL High 0-130 [facility] Comment on above: Order Comment: Order Date: 03/28/24 Order Info: [id number] - LIPID Order Info: [id number] - MG Order Info: 3016-3 - TSH Performed By: #### L 501.5200, L100.0100, L501.9985, L500.4100, L501.9520 #### [facility] [address] [place], [address] Cholesterol in VLDL [Mass/Vol] 29 mg/dL Normal 5-40 [facility] Comment on above: Order Comment: Order Date: 03/28/24 Order Info: [id number] - LIPID Order Info: [id number] - MG Order Info: 3016-3 - TSH Performed By: #### L 501.5200, L100.0100, L501.9985, L500.4100, L501.9520 #### [facility] [address] [place], [address] Triglyceride [Mass/Vol] 147 mg/dL Normal [facility] Comment on above: Order Comment: Order Date: 03/28/24 Order Info: [id number] - LIPID Order Info: [id number] - MG Order Info: 6-3 - TSH Result Comment: The drugs N-Acetylcysteine and Metamizole may falsely depress this assay. Serum Triglycerides Reference Interval Normal <150 mg/dL Borderline high 150 - 199 mg/dL High 200 - 499 mg/dL Very High > or = 500 mg/dL Performed By: #### L 501.5200, L100.0100, L501.9985, L500.4100, L501.9520 #### [facility] [address] [place], [address] Magnesiumon 09-18-2024 Magnesium [Mass/Vol] 2.2 mg/dL Normal 1.6-2.6 [facility] Comment on above: Order Comment: Order Date: 03/28/24 Order Info: [id number] - LIPID Order Info: [id number] - MG Order Info: [id number] - TSH Performed By: #### L 501.5200, L100.0100, L501.9985, L500.4100, L501.9520 #### [facility] [address] [place], [address] Thyroid Stim Hormone (TSH)on 09-18-2024 TSH 1.590 uIU/mL Normal 0.358-3.740 [facility] Comment on above: Order Comment: Order Date: 03/28/24 Order Info: [id number] - LIPID Order Info: [id number] - MG Order Info: [id number] - TSH Performed By: #### L 501.5200, L100.0100, L501.9985, L500.4100, L501.9520 #### [facility] [address] [place], [address] Urinalysis, Completeon 09-18 BACTERIA 0 SEEN Normal None Seen [facility] Comment on above: Order Comment: CLEAN CATCH Performed By: #### L 400.0001 #### [facility] [address] [place], [address] EPI,SQUAMOUS 0 SEEN Normal 5-10 [facility] Comment on above: Order Comment: CLEAN CATCH Performed By: #### L 400.0001 #### [facility] [address] [place], [address] Mucus Ql (Urine sed) 0 SEEN Normal [facility] Comment on above: Order Comment: CLEAN CATCH Performed By: #### L 400.0001 #### [facility] [address] [place], [address] RBC 0 SEEN Normal 0-5 [facility] Comment on above: Order Comment: CLEAN CATCH Performed By: #### L 400.0001 #### [facility] [address] [place], [address] WBC 0 SEEN Normal 0-5 [facility] Comment on above: Order Comment: CLEAN CATCH Performed By: #### L 400.0001 #### [facility] [address] [place], [address] Dexa Bone Density Studyon Dexa Bone Density Study [facility] Imaging Services [address] [place] [address] Dexa Bone Density Study MR#: [id number] Acct: [id number] Name: LIAM BURR Rep #: [id number] : 1960 F 63 From: Faraz pantoja MD PCP: Dr. Vlad Fitzpatrick MD Status: [facility] Study: Dexa Bone Density Study Date of Exam: 08/08/24 Exam# [id number] Ordering Dr: Vlad Fitzpatrick MD [id number] STUDY: DUAL ENERGY X-RAY ABSORPTIOMETRY / DXA REASON FOR EXAM: Female, 63 years old. [id number] TECHNIQUE: Bone Mineral Density (BMD) measurements of lumbar spine and bilateral hips were obtained. COMPARISON: None. FINDINGS: Lumbar Spine (L1-L4): g/cm2 (0.917) / T-score (-1.2) / Z-score (0.6) Findings are suggestive of osteopenia with a low fracture risk. Left Femur Total: g/cm2 (0.842) / T-score (-0.8) / Z-score (0.4) Left Femoral Neck: g/cm2 (0.707) / T-score (-1.3) / Z-score (0.3) Right Femur Total: g/cm2 (0.834) / T-score (-0.9) / Z-score (0.4) Right Femoral Neck: g/cm2 (0.626) / T-score (-2.0) / Z-score (-0.5) BD/Dexa Bone Density Study IMPRESSION: The patient is considered osteopenic as outlined below according to World [place] Organization (WHO) criteria with a moderate fracture risk. Reference Information: The T-score is the number of standard deviations above or below the standard which is normal for young adults at their peak bone mineral density. The World Health Organization (WHO) interprets the T-scores as follows: Above -1 Normal bone density Between -1 and -2.5 Osteopenia Equal to / or below -2.5 Osteoporosis As a practical clinical guideline, osteopenia may be graded as follows: Mild -1 through -1.5 Moderate -1.6 through -2.0 Severe -2.1 through -2.4 The Z-score is the number of standard deviations above or below age-matched controls. A Z-score of less than -1.5 would be considered abnormal. References: 1. NIH Osteoporosis and Related Bone Diseases www osteo.org 2. International Society for Clinical Densitometry www iscd.org 3. National Osteoporosis Foundation www nof.org Electronically Signed: Faraz Bai MD at 15:08 EST , CC: Dr. Vlad Fitzpatrick MD Game Warden: Signed Normal [facility] 12 Lead EKGon 07-08-2024 12 Lead EKG [facility] Cardiovascular Services [address] [place] [address] 12 Lead EKG 07/08/24 1644 MR#: [id number] Acct: [id number] Name: LIAM BURR Rep #: [id number] : 1960 63 From: Nitin Whitaker MD Attending Dr: Status: DEP ER Ordering Dr: Siddharth Wilkes Date: 07/08/24 Location: ED Sex: F C Admitted: Test Reason : PALP Blood Pressure : / mmHG Vent. Rate : 112 BPM Atrial Rate : 112 BPM P-R Int : 136 ms QRS Dur : 106 ms QT Int : 314 ms P-R-T Axes : 063 004 011 degrees QTc Int : 428 ms Sinus tachycardia with occasional Premature ventricular complexes Incomplete right bundle branch block Nonspecific ST abnormality Abnormal ECG Confirmed by NITIN WHITAKER MD ([id number]), script editor TINA RIVERA ([id number]) on 07/10/2024 9:34:27 AM Referred By: KAREN/HONG Confirmed By:NITIN WHITAKER MD 07/10/24 0934 Date Nitin Whitaker MD CC: TULIO Wilkes; Dr. Vlad Fitzpatrick MD; Dr. Papa Sandoval, DO Signed Normal [facility] BNP,B-Type NATRIURETIC PEPTI Dwain 07-08-2024 Natriuretic peptide B (Bld) [Mass/Vol] 28.1 pg/mL Normal 0-100 [facility] Comment on above: Performed By: #### L 300.8000, L500.2500, L100.0100, L501.5200, L501.4020 #### [facility] [address] [place], [address] Basic Metabolic Profile (BMP )on 07-08-2024 BUN/CRE 13.4 RATIO Normal 10-20 [facility] Comment on above: Order Comment: 'TROP ' Serial specimen #1, #2 or #3: 1 Performed By: #### L 300.8000, L500.2500, L100.0100, L501.5200, L501.4020 #### [facility] [address] [place], [address] CA,Total 9.4 mg/dL Normal 8.5-10.1 [facility] Comment on above: Order Comment: 'TROP ' Serial specimen #1, #2 or #3: 1 Performed By: #### L 300.8000, L500.2500, L100.0100, L501.5200, L501.4020 #### [facility] [address] [place], [address] Chloride [Moles/Vol] 107 mmol/L Normal 98-107 [facility] Comment on above: Order Comment: 'TROP ' Serial specimen #1, #2 or #3: 1 Performed By: #### L 300.8000, L500.2500, L100.0100, L501.5200, L501.4020 #### [facility] [address] [place], [address] CO2 [Moles/Vol] 24.0 mmol/L Normal 21.0-32.0 [facility] Comment on above: Order Comment: 'TROP ' Serial specimen #1, #2 or #3: 1 Performed By: #### L 300.8000, L500.2500, L100.0100, L501.5200, L501.4020 #### [facility] [address] [place], [address] Creatinine [Mass/Vol] 0.74 mg/dL Normal 0.55-1.02 [facility] Comment on above: Order Comment: 'TROP ' Serial specimen #1, #2 or #3: 1 Result Comment: The validity of the calculated GFR GFRAA in patients over 70 years has not been determined. Clinical correlation is essential. Performed By: #### L 300.8000, L500.2500, L100.0100, L501.5200, L501.4020 #### [facility] [address] [place], [address] ECRCL 65.98 ml/min Normal [facility] Comment on above: Order Comment: 'TROP ' Serial specimen #1, #2 or #3: 1 Performed By: #### L 300.8000, L500.2500, L100.0100, L501.5200, L501.4020 #### [facility] [address] [place], [address] EST GFR - AA 100 mL/min Normal >60 [facility] Comment on above: Order Comment: 'TROP ' Serial specimen #1, #2 or #3: 1 Result Comment: Afri can [place] GFR Calc Performed By: #### L 300.8000, L500.2500, L100.0100, L501.5200, L501.4020 #### [facility] [address] [place], [address] GAP 6 Normal 5-15 [facility] Comment on above: Order Comment: 'TROP ' Serial specimen #1, #2 or #3: 1 Performed By: #### L 300.8000, L500.2500, L100.0100, L501.5200, L501.4020 #### [facility] [address] [place], [address] GFR/1.73 sq M.predicted among non-blacks MDRD (S/P/Bld) [Vol rate/Area] 83 mL/min/{1.73_m2} Normal >60 [facility] Comment on above: Order Comment: 'TROP ' Serial specimen #1, #2 or #3: 1 Result Comment: Non- GFR Calc Performed By: #### L 300.8000, L500.2500, L100.0100, L501.5200, L501.4020 #### [facility] [address] [place], [address] Glucose [Mass/Vol] 164 mg/dL High 74-106 [facility] Comment on above: Order Comment: 'TROP ' Serial specimen #1, #2 or #3: 1 Result Comment: Fast ing Glucose result greater than or equal to 126 mg/dL suggests DIABETES MELLITUS per A.D.A. criteria. Performed By: #### L 300.8000, L500.2500, L100.0100, L501.5200, L501.4020 #### [facility] [address] [place], [address] Potassium [Moles/Vol] 3.4 mmol/L Low 3.5-5.1 [facility] Comment on above: Order Comment: 'TROP ' Serial specimen #1, #2 or #3: 1 Performed By: #### L 300.8000, L500.2500, L100.0100, L501.5200, L501.4020 #### [facility] [address] [place], [address] Sodium [Moles/Vol] 137 mmol/L Normal 136-145 [facility] Comment on above: Order Comment: 'TROP ' Serial specimen #1, #2 or #3: 1 Performed By: #### L 300.8000, L500.2500, L100.0100, L501.5200, L501.4020 #### [facility] [address] [place], [address] Urea nitrogen [Mass/Vol] 10 mg/dL Normal 7-18 [facility] Comment on above: Order Comment: 'TROP ' Serial specimen #1, #2 or #3: 1 Performed By: #### L 300.8000, L500.2500, L100.0100, L501.5200, L501.4020 #### [facility] [address] [place], [address] CBC W/Diff, Automatedon 10-2 -2023 Absolute Lymph 2.83 X10 3/uL Normal 0.83-4.51 [facility] Comment on above: Performed By: #### L 300.8000, L500.2500, L100.0100, L501.5200, L501.4020 #### [facility] [address] [place], [address] Absolute Neut 7.7 X10 3/uL Normal 2.0-7.7 [facility] Comment on above: Performed By: #### L 300.8000, L500.2500, L100.0100, L501.5200, L501.4020 #### [facility] [address] [place], [address] Basophils/100 WBC (Bld) 0.5 % Normal 0-1 [facility] Comment on above: Performed By: #### L 300.8000, L500.2500, L100.0100, L501.5200, L501.4020 #### [facility] [address] [place], [address] Eosinophils/100 WBC (Bld) 0.3 % Normal 0-5 [facility] Comment on above: Performed By: #### L 300.8000, L500.2500, L100.0100, L501.5200, L501.4020 #### [facility] [address] [place], [address] Erythrocyte distribution width (RBC) [Ratio] 12.3 % Normal 11.6-14.6 [facility] Comment on above: Performed By: #### L 300.8000, L500.2500, L100.0100, L501.5200, L501.4020 #### [facility] [address] [place], [address] Hematocrit (Bld) [Volume fraction] 44.9 % Normal 37-47 [facility] Comment on above: Performed By: #### L 300.8000, L500.2500, L100.0100, L501.5200, L501.4020 #### [facility] [address] [place], [address] Hemoglobin (Bld) [Mass/Vol] 15.8 g/dL High 12.0-15.0 [facility] Comment on above: Performed By: #### L 300.8000, L500.2500, L100.0100, L501.5200, L501.4020 #### [facility] [address] [place], [address] IG% 0.300 Normal 0.0-0.9 [facility] Comment on above: Result Comment: IG% - Immature Granulocytes (promyelocytes, myelocytes and metamyelocytes) > 1% indicates that a LEFT SHIFT is Present. Performed By: #### L 300.8000, L500.2500, L100.0100, L501.5200, L501.4020 #### [facility] [address] [place], [address] Lymphocytes/100 WBC (Bld) 24.7 % Normal 19-41 [facility] Comment on above: Performed By: #### L 300.8000, L500.2500, L100.0100, L501.5200, L501.4020 #### [facility] [address] [place], [address] MCH (RBC) [Entitic mass] 30.7 pg Normal 27.0-32.0 [facility] Comment on above: Performed By: #### L 300.8000, L500.2500, L100.0100, L501.5200, L501.4020 #### [facility] [address] [place], [address] MCHC (RBC) [Mass/Vol] 35.2 g/dL Normal 32-36 [facility] Comment on above: Performed By: #### L 300.8000, L500.2500, L100.0100, L501.5200, L501.4020 #### [facility] [address] [place], [address] MCV (RBC) [Entitic vol] 87.2 fL Normal 81-99 [facility] Comment on above: Performed By: #### L 300.8000, L500.2500, L100.0100, L501.5200, L501.4020 #### [facility] [address] [place], [address] Monocytes/100 WBC (Bld) 7.2 % Normal 0-10 [facility] Comment on above: Performed By: #### L 300.8000, L500.2500, L100.0100, L501.5200, L501.4020 #### [facility] [address] [place], [address] Neutrophils/100 WBC (Bld) 67.0 % Normal 47-70 [facility] Comment on above: Performed By: #### L 300.8000, L500.2500, L100.0100, L501.5200, L501.4020 #### [facility] [address] [place], [address] Nucleated RBC (Bld) [#/Vol] 0 10*3/uL Normal 0-5 [facility] Comment on above: Performed By: #### L 300.8000, L500.2500, L100.0100, L501.5200, L501.4020 #### [facility] [address] [place], [address] Platelet mean volume (Bld) [Entitic vol] 9.9 fL Normal 6.2-12.0 [facility] Comment on above: Performed By: #### L 300.8000, L500.2500, L100.0100, L501.5200, L501.4020 #### [facility] [address] [place], [address] Platelets (Bld) [#/Vol] 304 10*3/uL Normal 150-450 [facility] Comment on above: Performed By: #### L 300.8000, L500.2500, L100.0100, L501.5200, L501.4020 #### [facility] [address] [place], [address] RBC (Bld) [#/Vol] 5.15 10*6/uL Normal 4.2-5.4 [facility] Comment on above: Performed By: #### L 300.8000, L500.2500, L100.0100, L501.5200, L501.4020 #### [facility] [address] [place], [address] RDW SD 39.3 fl Normal 35.1-43.9 [facility] Comment on above: Performed By: #### L 300.8000, L500.2500, L100.0100, L501.5200, L501.4020 #### [facility] [address] [place], [address] WBC (Bld) [#/Vol] 11.5 10*3/uL High 4.4-11.0 [facility] Comment on above: Performed By: #### L 300.8000, L500.2500, L100.0100, L501.5200, L501.4020 #### [facility] [address] [place], [address] Chest 1 View (Portable)on Chest 1 View (Portable) [facility] Imaging Services [address] [place] [address] Chest 1 View (Portable) MR#: [id number] Acct: [id number] Name: LIAM BURR Rep #: [id number] : 1960 F 63 From: Jesus Manuel Reid DO PCP: Dr. Vlad Fitzpatrick MD Status: [facility] ER Study: Chest 1 View (Portable) Date of Exam: 07/08/24 Exam# [id number] Ordering Dr: Siddharth Wilkes [employer]C [id number] INDICATION: chest pain EXAMINATION/TECHNIQUE: X-RAY - XR Chest 1 View COMPARISON: 03/29/2034 FINDINGS: LINES/DEVICES: None. LUNGS: No consolidation, edema or effusion. No pneumothorax. MEDIASTINUM AND CARDIOVASCULAR STRUCTURES: Cardiac silhouette not enlarged. Central airways and mediastinal contour are unremarkable. BONES AND SOFT TISSUES: Unremarkable. RAD/Chest 1 View (Portable) IMPRESSION: No radiographic evidence of acute cardiopulmonary disease. Electronically Signed: Jesus Manuel Reid DO at 17:09 EDT , CC: TULIO Wilkes; Dr. Vlad Fitzpatrick MD Game Warden: Signed Normal [facility] D-Dimer Quantitative (DVT/PE )on 07-08-2024 D-DIMER QUANT 0.45 FEU/ug/m Normal 0.27-0.49 [facility] Comment on above: Result Comment: NORM AL D-Dimer level (<0.50) indicates no DVT or PE. Performed By: #### L 300.8000, L500.2500, L100.0100, L501.5200, L501.4020 #### [facility] [address] [facility] [place], [address] Emergency Department Summary on 07-08-2024 Emergency Department Summary [facility] Medical Records Department [address] [place] [address] Emergency Department Summary 07/08/24 MR#: [id number] Acct: [id number] Name: LIAM BURR Rep #: [id number] : 1960 63 From: Siddharth ANTUNEZ PCP: Dr. Vlad Fitzpatrick MD Status:DEP ER Location: ED HPI History of Present Illness Chief Complaint: Palpitations Narrative Narrative: Patient is a 63-year-old female with history of hypertension, who was recently admitted here in March, patient had a stress test on March 30, 2024, this was a negative stress test. Patient was diagnosed with a right bundle branch block. Patient states that over the last day, she woke up this morning feeling palpitations in her chest. She states she feels this, then she gets anxious and her heart rate continues to stay elevated. She denies any fever chills nausea or vomiting. Denies any specific pain to states she feels that her heart is beating rapidly. [facility] Medical History Wears glasses Thyroid disease Injury of head and neck Leg cramps Chronic neck and back pain Knee pain HTN (hypertension) Home Medications ???Medication ???Instructions ???Recorded ???Last Taken ???Type amlodipine 5 mg tablet (Norvasc) 5 mg PO DAILY 05/13/20 05/02/21 05:00 History cholecalciferol (vitamin D3) 25 25 mcg PO DAILY 05/13/20 Unknown History mcg (1,000 unit) capsule (Vitamin D3) multivitamin with minerals 1 tab PO DAILY 05/13/20 Unknown History (Hair,Skin and Nails tablet) cinnamon bark 500 mg capsule 2,000 mg PO DAILY 03/29/24 Unknown History (Cinnamon) Allergy/AdvReac Type Severity Reaction Status Date / Time lisinopril Allergy Mild Swelling Verified 07/08/24 16:41 Family History (Updated 05/31/24 @ 14:49 by Cassandra Jhaveri) Mother Hypertension Thyroid disorder Hypercholesterolemia Father Heart disease NHL (nodular histiocytic lymphoma) Aunt Breast cancer Maternal Aunt Breast cancer Maternal- Passed @ Age 98 Surgical History Hx of colonoscopy History of oral surgery History of uterine fibroid Hx of one miscarriage History of dilatation and curettage Social History (Updated 05/31/24 @ 14:50 by Cassandra Jhaveri) household members: spouse current occupational status: retired current occupation: Retired from [employer] Smoking Status: Never smoker alcohol intake: never substance use type: does not use seatbelt use: always do you feel safe at home: Yes 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 Positive for palpitations Respiratory: Negative for any cough, sputum production, hemoptysis, dyspnea, dyspnea on exertion, orthopnea Gastrointestinal: Negative for any abdominal pain, nausea, vomiting, diarrhea, constipation, blood in stool, blood in vomit : Negative for any urinary frequency, dysuria, retention, blood in urine Muscle skeletal: Negative for any neck pain, back pain Neurological: Negative for any headache, syncope, dizziness Skin: Negative for any rashes, itching, abrasions, lacerations Psychiatric: Negative for any depression, stress, suicidal ideation, homicidal ideation. Positive for anxiety Hematologic: Negative for any excessive bruising, easy bleeding EXAM Physical Exam Narrative Exam Narrative: Vital signs reviewed. HEET: Head normocephalic atraumatic, TMs clear bilaterally. Posterior pharynx is clear, moist mucous membranes. Nares clear bilaterally. Neck: Supple with no lymphadenopathy or tenderness. No signs of meningismus. Cardiac: Regular rate and rhythm no murmurs gallops or rubs, equal peripheral pulses bilaterally. There is some irregularity, however I do believe that that is a PVC. Respiratory: Lungs clear to auscultation bilaterally. No chest tenderness. Abdomen: Soft, nontender, nondistended. No abdominal bruit or pulsatile masses. No hepatosplenomegaly Extremities: No peripheral edema, no signs of gross trauma or deformity. Active full range of motion of all extremities. Neuro: Cranial nerves II through XII intact, no focal neurological deficits. Skin: Clean dry and intact with no rash, purpura, petechiae, vesicles or pustules. Backs/flank: No CVA tenderness, no midline spinal tenderness, no deformity. Psych: Normal mood and affect. No SI, HI or acute psychosis. Const Vital Signs: 07/08/24 16:41 07/08/24 17:02 07/08/24 17:47 Temperature 98 F 98 F Temperature Source Temporal Oral Pulse Rate 116 H 10 (more content not included)... Normal [facility] L501.4020on 07-08-2024 TROPONIN-I HS 4 pg/mL Normal 3.0-54.0 [facility] Comment on above: Order Comment: 'TROP ' Serial specimen #1, #2 or #3: 1 Result Comment: Plea se Note: New Test Units and Gender Specific Reference Ranges. For more information see Policy Stat Procedure [place] High Sensitivity Troponin (TNIH) and attachments. Performed By: #### L 300.8000, L500.2500, L100.0100, L501.5200, L501.4020 #### [facility] [address] [place], [address] Thyroid Stim Hormone (TSH)on 07-08-2024 TSH 1.090 uIU/mL Normal 0.358-3.740 [facility] Comment on above: Order Comment: 'TROP ' Serial specimen #1, #2 or #3: 1 Performed By: #### L 300.8000, L500.2500, L100.0100, L501.5200, L501.4020 #### [facility] [address] [place], [address] PAP IG HPV APTIMA 16/18,45on 06-06-2024 ADEQ Comment Normal . [facility] Comment on above: Order Comment: Speci men Comment: [id number] Comment: Source.............CervixSpecimen Comment: Other..............Post MenopausalSpecimen Comment: No. of containers..01 ThinPrep Vial Result Comment: Sati sfactory for evaluation. Endocervical and/or squamous metaplastic cells (endocervical component) are present. Performed By: #### L 300.8000, L500.2500, L100.0100, L501.5200, L501.4020 #### [facility] [address] [place], [address] COMM . Normal . [facility] Comment on above: Order Comment: Speci men Comment: [id number] Comment: Source.............CervixSpecimen Comment: Other..............Post MenopausalSpecimen Comment: No. of containers..01 ThinPrep Vial Performed By: #### L 300.8000, L500.2500, L100.0100, L501.5200, L501.4020 #### [facility] [address] [place], [address] COMMENT Comment Normal . [facility] Comment on above: Order Comment: Speci men Comment: [id number] Comment: Source.............CervixSpecimen Comment: Other..............Post MenopausalSpecimen Comment: No. of containers..01 ThinPrep Vial Result Comment: This liquid based ThinPrep(R) pap test was screened with the use of an image guided system. Performed By: #### L 300.8000, L500.2500, L100.0100, L501.5200, L501.4020 #### [facility] [address] [place], [place], [address] DIAG Comment Normal . [facility] Comment on above: Order Comment: Speci men Comment: [id number] Comment: Source.............CervixSpecimen Comment: Other..............Post MenopausalSpecimen Comment: No. of containers..01 ThinPrep Vial Result Comment: NEGA TIVE FOR INTRAEPITHELIAL LESION OR MALIGNANCY. Performed By: #### L 300.8000, L500.2500, L100.0100, L501.5200, L501.4020 #### [facility] [address] [place], [place], [address] HPV APTIMA, HR Negative Normal Negative [facility] Comment on above: Order Comment: Speci men Comment: [id number] Comment: Source.............CervixSpecimen Comment: Other..............Post MenopausalSpecimen Comment: No. of containers..01 ThinPrep Vial Result Comment: This nucleic acid amplification test detects fourteen high- risk HPV types (16,18,31,33,35,39,45,51,52,56,58,59,66,68) without differentiation. Performed By: #### L 300.8000, L500.2500, L100.0100, L501.5200, L501.4020 #### [facility] [address] [place], [address] HPV Shila Rfx Comment Normal . [facility] Comment on above: Order Comment: Speci men Comment: [id number] Comment: Source.............CervixSpecimen Comment: Other..............Post MenopausalSpecimen Comment: No. of containers..01 ThinPrep Vial Result Comment: Crit eralex not met, HPV Genotype not performed. Performed at: - [facility] [id number] Turbine Subassembler: Moriah Shaikh MD, Phone: [phone] Performed at: = - [facility] [address] [id number] Turbine Subassembler: Moriah Shaikh MD, Phone: [phone] Performed By: #### L 300.8000, L500.2500, L100.0100, L501.5200, L501.4020 #### [facility] [address] [place], [address] PAPSMR Comment Normal . [facility] Comment on above: Order Comment: Speci men Comment: [id number] Comment: Source.............CervixSpecimen Comment: Other..............Post MenopausalSpecimen Comment: No. of containers..01 ThinPrep Vial Result Comment: The Pap smear is a screening test designed to aid in the detection of premalignant and malignant conditions of the uterine cervix. It is not a diagnostic procedure and should not be used as the sole means of detecting cervical cancer. Both false-positive and false-negative reports do occur. Performed By: #### L 300.8000, L500.2500, L100.0100, L501.5200, L501.4020 #### [facility] [address] [place], [address] PERFORM Comment Normal . [facility] Comment on above: Order Comment: Speci men Comment: [id number] Comment: Source.............CervixSpecimen Comment: Other..............Post MenopausalSpecimen Comment: No. of containers..01 ThinPrep Vial Result Comment: Jack Khoury, Director Behavioral Health (ASCP) Performed By: #### L 300.8000, L500.2500, L100.0100, L501.5200, L501.4020 #### [facility] [address] 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 Report [facility] [address], [address] [place] [address] OFFICE VISIT Date of Service: 05/31/24 MR#: [id number] Acct: [id number] Name: LIAM BURR Rep #: [id number] : 1960 Provider: TULIO hannon Age/Sex: 63/F [place] [facility] [place]: Signed Intake Vital Signs 02/23/23 13:04 03/29/24 06:48 05/31/24 14:36 05/31/24 14:50 Height 5 ft 4 in 5 ft 4 in 5 ft 4 in 5 ft 4 in Weight: 147 lb 4 oz BMI 25.2 BP 134/72 H 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 Veterinarian Required: No Is patient in pain?: No Allergies lisinopril Allergy (Mild, Verified 05/31/24 14:36) Swelling Medications ???Medication ???Instructions ???Recorded ???Confirmed ???Type amlodipine 5 mg tablet (Norvasc) 5 mg PO DAILY 05/13/20 05/31/24 History cholecalciferol (vitamin D3) 25 25 mcg PO DAILY 05/13/20 05/31/24 History mcg (1,000 unit) capsule (Vitamin D3) multivitamin with minerals 1 tab PO DAILY 05/13/20 05/31/24 History (Hair,Skin and Nails tablet) cinnamon bark 500 mg capsule 2,000 mg PO DAILY 03/29/24 05/31/24 History (Cinnamon) Is last menstrual period known: No Post menopausal: Yes Patient : No : No PFSH Medical History Wears glasses Thyroid disease Injury of head and neck Leg cramps Chronic neck and back pain Knee pain HTN (hypertension) Surgical History Hx of colonoscopy History of oral surgery History of uterine fibroid Hx of one miscarriage History of dilatation and curettage Family History (Updated 05/31/24 @ 14:49 by Cassandra Jhaveri) Mother Hypertension Thyroid disorder Hypercholesterolemia Father Heart disease NHL (nodular histiocytic lymphoma) Aunt Breast cancer Maternal Aunt Breast cancer Maternal- Passed @ Age 98 Social History (Updated 05/31/24 @ 14:50 by Cassandra Jhaveri) household members: spouse current occupational status: retired current occupation: Retired from [employer] Smoking Status: Never smoker alcohol intake: never substance use type: does not use seatbelt use: always do you feel safe at home: Yes 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 Denies concerns. Previous exams Dr Chavarria Last PAP: 2020 History of abnormal PAP: cryo >20yr. Neg since Last mammogram: 03/2024 History of abnormal mammogram: no Colon cancer screenin Other preventative health care screenings: Yvonne Female Reproductive History Questions: metorrhagia: No and sexually active: No Menopausal Treatment: No HRT, No Vaginal Estrogen, No Osphena, No OTC treatments and No prescription non-hormonal treatment ROS Const Constitutional: Denies fatigue, weight gain or weight loss Cardio Card: Denies chest pain Resp Resp: Denies cough or dyspnea on exertion GI GI: Denies abdominal pain, bloating, change in stool character, constipation or vomiting : Reports as per HPI; Denies difficulty voiding, pelvic pain, urinary frequency, urinary incontinence, urinary urgency, vaginal discharge or vaginal pruritus Exam Const General: cooperative, healthy appearing, no acute distress and well developed Orientation: alert, oriented to person and oriented to place HENNM Head: normal to inspection Neck Neck: normal visual inspection Thyroid: thyroid normal Lymphatic: no lymphadenopathy noted Chest Breast inspection: normal inspection of the breasts and normal inspection of the axillae Breast palpation: normal palpation of the breasts, normal palpation of the axillae and no axillary lymphadenopathy Resp Effort Inspection: normal respiratory effort GI Palpation: soft, no masses and nontender Rectal Exam: deferred External Female Exam: normal external appearance and normal appearance of the urethra Urethra: normal appearance of the urethra and normal palpation Speculum Exam - Vagina: normal appearance of the vagina and normal vaginal discharge Speculum Exam - Cervix: normal appearance of the cervix Bimanual Exam- Vagina Uterus: normal bimanual exam, uterine size normal, uterine shape normal and non-tender Bimanual Exam- Adnexa, other: normal adnexae, no masses, normal and non-tender Pelvic Support: normal Neuro General: patient alert and patient oriented x3 Psych Affect: normal affect Coding Level of Care Code (more content not included)... Normal [facility] Stress Reporton 03-30-2024 Stress Report [facility] [address] [place] [id number] MR#: [id number] Acct: [id number] Name: LIAM BURR Rep #: [id number] : 1960 63 From: Nitin Whitaker MD Primary Care: Dr. Vlad Fitzpatrick MD Status: REG CLI Referring Dr: Vlad Fitzpatrick MD Sex: F C Stress Test Report Exercise myocardial perfusion stress test. 63-year-old lady with a history of abnormal EKG Stress protocol: Resting EKG demonstrates with a rate of 83 bpm and an incomplete right bundle branch block, resting blood pressure is 152/82 mmHg. The patient exercised according to the regular Asif protocol for a total duration of 9 minutes attaining a maximum heart rate of 146 bpm which was 94% of maximum predicted heart rate; the maximum workload was 10.1 metabolic equivalents. At rest there were no ST or T wave changes noted to suggest ischemia and at peak exercise upsloping ST changes only were noted which did not meet the criteria for ischemia. No clinical angina was noted the test was terminated due to the target heart rate being achieved/fatigue. The peak blood pressure was 154/84 mmHg. Rate-pressure product was 21,900. Myocardial perfusion protocol. 11.1 mCi of technetium 99m sestamibi was injected at rest. The patient exercised according to regular Asif protocol for total duration of 9 minutes and at peak exercise 34 point mCi of technetium 99m sestamibi was injected stress images were obtained stress and rest images were reconstructed in comparing the short axis vertical long and horizontal long axis. Gated images were also obtained. Perfusion SPECT analysis: Review of the stress images demonstrate normal uptake of tracer noted in all areas of the myocardium. The resting images similarly demonstrate normal uptake of tracer noted in all areas of the myocardium. No areas of reversibility are noted to suggest ischemia no previous infarct was noted. Gated SPECT analysis: The gated ejection fraction is 88%. Conclusion: Normal exercise myocardial perfusion stress test at a high workload Preserved ejection fraction. 03/30/24 1223 Date Nitin Whitaker MD CC: Dr. Vlad Fitzpatrick MD Date Dictated: 03/30/24 122 Date Transcribed: 03/30/241220 Game Warden: CO Signed Normal [facility] 12 Lead EKGon 03-29-2024 12 Lead EKG [facility] [address] [place] [address] 12 Lead EKG 03/29/24 0652 MR#: [id number] Acct: [id number] Name: LIAM BURR Rep #: [id number] : 1960 63 From: Nitin Whitaker MD Attending Dr: Status: DEP ER Ordering Dr: Titus Kumar DO Date: 03/29/24 Location: ED Sex: F C Admitted: Test Reason : CP Blood Pressure : / mmHG Vent. Rate : 088 BPM Atrial Rate : 088 BPM P-R Int : 146 ms QRS Dur : 100 ms QT Int : 356 ms P-R-T Axes : 046 -09 -11 degrees QTc Int : 430 ms Normal sinus rhythm Incomplete right bundle branch block Left ventricular hypertrophy with repolarization abnormality ( Gerardo product ) Abnormal ECG Confirmed by NITIN WHITAKER MD ([id number]), script editor TINA RIVERA ([id number]) on 03/30/2024 9:29:14 AM Referred By: TRELL Confirmed By:NITIN WHITAKER MD 03/30/24 0929 Date Nitin Whitaker MD CC: Dr. Vlad Fitzpatrick MD; Titus Kumar DO Signed Normal [facility] Basic Metabolic Profile (BMP )on 03-29-2024 BUN/CRE 13.3 RATIO Normal 10-20 [facility] Comment on above: Order Comment: 'TROP ' Serial specimen #1, #2 or #3: 1 Performed By: #### L 300.8000, L500.2500, L100.0100, L501.5200, L501.4020 #### [facility] [address] [place], [address] CA,Total 9.3 mg/dL Normal 8.5-10.1 [facility] Comment on above: Order Comment: 'TROP ' Serial specimen #1, #2 or #3: 1 Performed By: #### L 300.8000, L500.2500, L100.0100, L501.5200, L501.4020 #### [facility] [address] [place], [address] Chloride [Moles/Vol] 106 mmol/L Normal 98-107 [facility] Comment on above: Order Comment: 'TROP ' Serial specimen #1, #2 or #3: 1 Performed By: #### L 300.8000, L500.2500, L100.0100, L501.5200, L501.4020 #### [facility] [address] [place], [address] CO2 [Moles/Vol] 25.0 mmol/L Normal 21.0-32.0 [facility] Comment on above: Order Comment: 'TROP ' Serial specimen #1, #2 or #3: 1 Performed By: #### L 300.8000, L500.2500, L100.0100, L501.5200, L501.4020 #### [facility] [address] [place], [address] Creatinine [Mass/Vol] 0.68 mg/dL Normal 0.55-1.02 [facility] Comment on above: Order Comment: 'TROP ' Serial specimen #1, #2 or #3: 1 Result Comment: The validity of the calculated GFR GFRAA in patients over 70 years has not been determined. Clinical correlation is essential. Performed By: #### L 300.8000, L500.2500, L100.0100, L501.5200, L501.4020 #### [facility] [address] [place], [address] ECRCL 66.34 ml/min Normal [facility] Comment on above: Order Comment: 'TROP ' Serial specimen #1, #2 or #3: 1 Performed By: #### L 300.8000, L500.2500, L100.0100, L501.5200, L501.4020 #### [facility] [address] [place], [address] EST GFR - AA 112 mL/min Normal >60 [facility] Comment on above: Order Comment: 'TROP ' Serial specimen #1, #2 or #3: 1 Result Comment: Afri can Monegasque GFR Calc Performed By: #### L 300.8000, L500.2500, L100.0100, L501.5200, L501.4020 #### [facility] [address] [place], [address] GAP 7 Normal 5-15 [facility] Comment on above: Order Comment: 'TROP ' Serial specimen #1, #2 or #3: 1 Performed By: #### L 300.8000, L500.2500, L100.0100, L501.5200, L501.4020 #### [facility] [address] [place], [address] GFR/1.73 sq M.predicted among non-blacks MDRD (S/P/Bld) [Vol rate/Area] 93 mL/min/{1.73_m2} Normal >60 [facility] Comment on above: Order Comment: 'TROP ' Serial specimen #1, #2 or #3: 1 Result Comment: Non- GFR Calc Performed By: #### L 300.8000, L500.2500, L100.0100, L501.5200, L501.4020 #### [facility] [address] [place], [address] Glucose [Mass/Vol] 124 mg/dL High 74-106 [facility] Comment on above: Order Comment: 'TROP ' Serial specimen #1, #2 or #3: 1 Result Comment: Fast ing Glucose result from 100 to 125 mg/dL suggests IMPAIRED HOMEOSTASIS per A.D.A. criteria. Performed By: #### L 300.8000, L500.2500, L100.0100, L501.5200, L501.4020 #### [facility] [address] [place], [address] Potassium [Moles/Vol] 3.5 mmol/L Normal 3.5-5.1 [facility] Comment on above: Order Comment: 'TROP ' Serial specimen #1, #2 or #3: 1 Performed By: #### L 300.8000, L500.2500, L100.0100, L501.5200, L501.4020 #### [facility] [address] [place], [address] Sodium [Moles/Vol] 138 mmol/L Normal 136-145 [facility] Comment on above: Order Comment: 'TROP ' Serial specimen #1, #2 or #3: 1 Performed By: #### L 300.8000, L500.2500, L100.0100, L501.5200, L501.4020 #### [facility] [address] [place], [address] Urea nitrogen [Mass/Vol] 9 mg/dL Normal 7-18 [facility] Comment on above: Order Comment: 'TROP ' Serial specimen #1, #2 or #3: 1 Performed By: #### L 300.8000, L500.2500, L100.0100, L501.5200, L501.4020 #### [facility] [address] [place], [address] CBC W/Diff, Automatedon 07- Absolute Lymph 3.60 X10 3/uL Normal 0.83-4.51 [facility] Comment on above: Performed By: #### L 300.8000, L500.2500, L100.0100, L501.5200, L501.4020 #### [facility] [address] [place], [address] Absolute Neut 5.2 X10 3/uL Normal 2.0-7.7 [facility] Comment on above: Performed By: #### L 300.8000, L500.2500, L100.0100, L501.5200, L501.4020 #### [facility] [address] [place], [address] Basophils/100 WBC (Bld) 0.5 % Normal 0-1 [facility] Comment on above: Performed By: #### L 300.8000, L500.2500, L100.0100, L501.5200, L501.4020 #### [facility] [address] [place], [address] Eosinophils/100 WBC (Bld) 1.2 % Normal 0-5 [facility] Comment on above: Performed By: #### L 300.8000, L500.2500, L100.0100, L501.5200, L501.4020 #### [facility] [address] [place], [address] Erythrocyte distribution width (RBC) [Ratio] 12.7 % Normal 11.6-14.6 [facility] Comment on above: Performed By: #### L 300.8000, L500.2500, L100.0100, L501.5200, L501.4020 #### [facility] [address] [place], [address] Hematocrit (Bld) [Volume fraction] 43.8 % Normal 37-47 [facility] Comment on above: Performed By: #### L 300.8000, L500.2500, L100.0100, L501.5200, L501.4020 #### [facility] [address] [place], [address] Hemoglobin (Bld) [Mass/Vol] 14.9 g/dL Normal 12.0-15.0 [facility] Comment on above: Performed By: #### L 300.8000, L500.2500, L100.0100, L501.5200, L501.4020 #### [facility] [address] [place], [address] IG% 0.300 Normal 0.0-0.9 [facility] Comment on above: Result Comment: IG% - Immature Granulocytes (promyelocytes, myelocytes and metamyelocytes) > 1% indicates that a LEFT SHIFT is Present. Performed By: #### L 300.8000, L500.2500, L100.0100, L501.5200, L501.4020 #### [facility] [address] [place], [address] Lymphocytes/100 WBC (Bld) 36.2 % Normal 19-41 [facility] Comment on above: Performed By: #### L 300.8000, L500.2500, L100.0100, L501.5200, L501.4020 #### [facility] [address] [place], [address] MCH (RBC) [Entitic mass] 29.7 pg Normal 27.0-32.0 [facility] Comment on above: Performed By: #### L 300.8000, L500.2500, L100.0100, L501.5200, L501.4020 #### [facility] [address] [place], [address] MCHC (RBC) [Mass/Vol] 34.0 g/dL Normal 32-36 [facility] Comment on above: Performed By: #### L 300.8000, L500.2500, L100.0100, L501.5200, L501.4020 #### [facility] [address] [place], [address] MCV (RBC) [Entitic vol] 87.3 fL Normal 81-99 [facility] Comment on above: Performed By: #### L 300.8000, L500.2500, L100.0100, L501.5200, L501.4020 #### [facility] [address] [place], [address] Monocytes/100 WBC (Bld) 9.4 % Normal 0-10 [facility] Comment on above: Performed By: #### L 300.8000, L500.2500, L100.0100, L501.5200, L501.4020 #### [facility] [address] [place], [address] Neutrophils/100 WBC (Bld) 52.4 % Normal 47-70 [facility] Comment on above: Performed By: #### L 300.8000, L500.2500, L100.0100, L501.5200, L501.4020 #### [facility] [address] [place], [address] Nucleated RBC (Bld) [#/Vol] 0 10*3/uL Normal 0-5 [facility] Comment on above: Performed By: #### L 300.8000, L500.2500, L100.0100, L501.5200, L501.4020 #### [facility] [address] [place], [address] Platelet mean volume (Bld) [Entitic vol] 9.7 fL Normal 6.2-12.0 [facility] Comment on above: Performed By: #### L 300.8000, L500.2500, L100.0100, L501.5200, L501.4020 #### [facility] [address] [place], [address] Platelets (Bld) [#/Vol] 269 10*3/uL Normal 150-450 [facility] Comment on above: Performed By: #### L 300.8000, L500.2500, L100.0100, L501.5200, L501.4020 #### [facility] [address] [place], [address] RBC (Bld) [#/Vol] 5.02 10*6/uL Normal 4.2-5.4 [facility] Comment on above: Performed By: #### L 300.8000, L500.2500, L100.0100, L501.5200, L501.4020 #### [facility] [address] [place], [address] RDW SD 40.1 fl Normal 35.1-43.9 [facility] Comment on above: Performed By: #### L 300.8000, L500.2500, L100.0100, L501.5200, L501.4020 #### [facility] [address] [place], [address] WBC (Bld) [#/Vol] 10.0 10*3/uL Normal 4.4-11.0 [facility] Comment on above: Performed By: #### L 300.8000, L500.2500, L100.0100, L501.5200, L501.4020 #### [facility] [address] [place], [address] Chest PA and Lateralon 03-29 Chest PA and Lateral [facility] Imaging Services [address] [place] [address] Chest PA and Lateral MR#: [id number] Acct: [id number] Name: LIAM BURR Rep #: [id number] : 1960 F 63 From: Faraz pantoja MD PCP: Dr. Vlad Fitzpatrick MD Status: DEP ER Study: Chest PA and Lateral Date of Exam: 03/29/24 Exam# [id number] Ordering Dr: Titus Kumar DO [id number] STUDY: X-RAY CHEST REASON FOR EXAM: Female, 63 years old. CP TECHNIQUE: PA and lateral views of the chest. COMPARISON: None. FINDINGS: EKG electrodes are seen. Hyperinflation. The lungs are clear. There is no demonstrated pleural abnormality. Normal size heart. Normal mediastinum and andreia. Normal visualized pulmonary arteries. Normal visualized aortic arch and descending thoracic aorta. There are degenerative changes of the visualized thoracic spine. Normal visualized ribs, clavicles, and shoulders. There is no demonstrated abnormality of the visualized soft tissue structures of the upper abdomen. RAD/Chest PA and Lateral IMPRESSION: Hyperinflation. The lungs are clear. Electronically Signed: Faraz Bai MD at 7:34 EDT , CC: Dr. Vlda Fitzpatrick MD; Titus Kumar DO Game Warden: Signed Normal [facility] D-Dimer Quantitative (DVT/PE )on 03-29-2024 D-DIMER QUANT 0.33 FEU/ug/m Normal 0.27-0.49 [facility] Comment on above: Result Comment: NORM AL D-Dimer level (<0.50) indicates no DVT or PE. Performed By: #### L 300.8000, L500.2500, L100.0100, L501.5200, L501.4020 #### [facility] [address] [place], [address] Emergency Department Summary on 03-29-2024 Emergency Department Summary [facility] Medical Records Department [address] [place] [address] Emergency Department Summary 03/29/24 MR#: [id number] Acct: [id number] Name: LIAM BURR Rep #: [id number] : 1960 63 From: Titus Kumar DO PCP: Dr. Vlad Fitzpatrick MD Status:REG ER Location: ED HPI History of Present Illness Chief Complaint: Chest Pain Informant: patient and spouse/S.O. Narrative Narrative: Patient is a 63-year-old female with past medical history of hypertension. She reports that she went to her family doctor the other day secondary to yearly evaluation for her high blood pressure. At which time they did an EKG and she was informed that there are some nonspecific changes on it. She states when she was informed that she noted that she was having some left-sided chest discomfort. She states it is a dull ache without radiation and she does states there is no associated nausea vomiting or diaphoresis. 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 She states she does not remember a single event leading to onset of chest pain but she has been thinking about the discomfort since she was informed of her atypical EKG and need for stress test in order to ensure there is no signs of cardiac damage she comes in for evaluation. She denies any recent travel surgery hormone use or history of DVT/PE. [facility] Medical History Wears glasses Thyroid disease Injury of head and neck Leg cramps Chronic neck and back pain Knee pain HTN (hypertension) Home Medications ???Medication ???Instructions ???Recorded ???Last Taken ???Type amlodipine 5 mg tablet (Norvasc) 5 mg PO DAILY 05/13/20 05/02/21 05:00 History cholecalciferol (vitamin D3) 25 25 mcg PO DAILY 05/13/20 Unknown History mcg (1,000 unit) capsule (Vitamin D3) multivitamin with minerals 1 tab PO DAILY 05/13/20 Unknown History (Hair,Skin and Nails tablet) cinnamon bark 500 mg capsule 2,000 mg PO DAILY 03/29/24 Unknown History (Cinnamon) Allergy/AdvReac Type Severity Reaction Status Date / Time lisinopril Allergy Mild Swelling Verified 03/29/24 06:52 Family History Mother Hypertension Thyroid disorder Hypercholesterolemia Father Heart disease NHL (nodular histiocytic lymphoma) Surgical History History of dilatation and curettage History of oral surgery History of uterine fibroid Hx of colonoscopy Hx of one miscarriage Social History Smoking Status: Never smoker alcohol intake: never ROS ROS ED Constitutional Constitutional ED: Denies chills or fever(s) Eyes Eyes: Denies blurry vision or change in vision ENT ENT ED: Denies sore throat Cardiovascular Cardiovascular: Reports chest pain; Denies palpitations or racing heartbeat Respiratory/Chest Respiratory/Chest: Denies cough or dyspnea Gastrointestinal Gastrointestinal: Denies abdominal pain, diarrhea, nausea or vomiting Genitourinary Genitourinary ED: Denies dysuria Musculoskeletal Musculoskeletal: Denies back pain Integumentary Denies rash Neurologic Neurologic: Denies headache(s) Psychiatric Psychiatric: Reports anxiety Hematologic/Lymphatic Hematologic/Lymphatic: Denies easy bleeding or easy bruising EXAM Physical Exam Const Vital Signs: 03/29/24 06:48 03/29/24 06:54 03/29/24 07:48 Temperature 97.3 F L Temperature Source Temporal Pulse Rate 88 78 Respiratory Rate 14 16 Respiratory Effort Normal Blood Pressure 159/85 H 141/75 H Blood Pressure Mean 109 97 Pulse Ox 96 98 Oxygen Delivery Method Room Air Room Air Positive well nourished and well developed General Appearance ED: well developed; Negative for pallor HEENT HEENT Narrative: Normocephalic atraumatic Eyes PERRL and EOMs intact bilaterally General Eye ED: Negative for pale conjunctiva or scleral icterus Neck supple and no JVD Neck Narrative: No carotid bruit noted Chest Wall Chest Narrative: There is reproducible left anterior chest wall pain rib regions 4-6 that patient states is similar nature to the pain she has been experiencing over the last 24 hours without bony deformity or crepitance Resp normal respiratory effort and clear to auscultation bilaterally Resp Narrative: No nasal flaring retractions tachypnea or accessory muscle use Cardio regular rate and regular rhythm Rate: other Other Details: Heart is regular rate and rhythm without murmurs rubs or gallops Radial and carotid pulses are equal and symmetric GI normal to inspection, nondistended, normoactive (more content not included)... Normal [facility] L501.4020on 03-29-2024 TROPONIN-I HS 5 pg/mL Normal 3.0-54.0 [facility] Comment on above: Order Comment: 'TROP ' Serial specimen #1, #2 or #3: 2 Result Comment: Plea se Note: New Test Units and Gender Specific Reference Ranges. For more information see Policy Stat Procedure [place] High Sensitivity Troponin (TNIH) and attachments. Performed By: #### L 300.8000, L500.2500, L100.0100, L501.5200, L501.4020 #### [facility] [address] [place], [place], [id number] TROPONIN-I HS 5 pg/mL Normal 3.0-54.0 [facility] Comment on above: Order Comment: 'TROP ' Serial specimen #1, #2 or #3: 1 Result Comment: Plea se Note: New Test Units and Gender Specific Reference Ranges. For more information see Policy Stat Procedure [place] High Sensitivity Troponin (TNIH) and attachments. Performed By: #### L 300.8000, L500.2500, L100.0100, L501.5200, L501.4020 #### [facility] [address] [place], [address] Magnesiumon 03-29-2024 Magnesium [Mass/Vol] 2.2 mg/dL Normal 1.6-2.6 [facility] Comment on above: Order Comment: 'TROP ' Serial specimen #1, #2 or #3: 1 Performed By: #### L 300.8000, L500.2500, L100.0100, L501.5200, L501.4020 #### [facility] [address] [place], [place], [id number] Absolute lymphocyte countOrd ered By: Vlad Fitzpatrick on 03-22-2023 Lymphocytes Auto (Unsp spec) [#/Vol] 2.52 10*3/uL 0.83-4.51 [facility] Basophil percentageOrdered B y: Vlad Fitzpatrick on 03-22-2023 Basophil percentage 0 SEEN /hpf 0-5 [facility] Basophils/100 WBC (Bld) 0.5 % 0-1 [facility] Bilirubin [Mass/Vol] 0.50 mg/dL 0.20-1.00 [facility] Comment on above: For patients on eltr ombopag therapy, use of Dimension [place] TBIL is not recommended. Chloride [Moles/Vol] 106 mmol/L 98-107 [facility] Eosinophils/100 WBC (Bld) 1.2 % 0-5 [facility] Glucose [Mass/Vol] 98 mg/dL 74-106 [facility] Neutrophils (Bld) [#/Vol] 4.2 10*3/uL 2.0-7.7 [facility] Neutrophils/100 WBC (Bld) 55.2 % 47-70 [facility] Potassium [Moles/Vol] 4.0 mmol/L 3.5-5.1 [facility] Protein [Mass/Vol] 7.5 g/dL 6.4-8.2 [facility] Sodium [Moles/Vol] 137 mmol/L 136-145 [facility] WBC (Bld) [#/Vol] 7.6 10*3/uL 4.4-11.0 [facility] Bilirubin Test strip Ql (U)O rdered By: Vlad Fitzpatrick on 03-22-2023 Bilirubin Ql (U) Negative Negative [facility] Blood erythrocytes count (nu mber/volume)Ordered By: Vlad Fitzpatrick on 03-22-2023 RBC (Bld) [#/Vol] 5.03 10*6/uL 4.2-5.4 [facility] Blood hemoglobin measurement (mass/volume)Ordered By: Vlad Fitzpatrick on 03-22-2023 Hemoglobin (Bld) [Mass/Vol] 14.8 g/dL 12.0-15.0 [facility] Blood lymphocytes/100 leukoc ytesOrdered By: Vlad Fitzpatrick on 03-22-2023 Lymphocytes/100 WBC (Bld) 33.4 % 19-41 [facility] Blood monocytes/100 leukocyt esOrdered By: Vlad Fitzpatrick on 03-22-2023 Monocytes/100 WBC (Bld) 9.4 % 0-10 [facility] Blood platelet mean volumeOr dered By: Vlad Fitzpatrick on 03-22-2023 Platelet mean volume (Bld) [Entitic vol] 10.0 fL 6.2-12.0 [facility] Determination of erythrocyte mean corpuscular volume (MCV)Ordered By: Vlad Fitzpatrick on 03-22-2023 MCV (RBC) [Entitic vol] 90.3 fL 81-99 [facility] Hematocrit Auto (Bld) [Volum e fraction]Ordered By: Vlad Fitzpatrick on 03-22-2023 Hematocrit (Bld) [Volume fraction] 45.4 % 37-47 [facility] Ketones Test strip Ql (U)Ord ered By: Vlad Fitzpatrick on 03-22-2023 Ketones Ql (U) Negative Negative [facility] - Chemistry and C hemistry - challengeOrdered By: Vlad Fitzpatrick on 03-22-2023 ALP [Catalytic activity/Vol] 81 U/L 45-117 [facility] ALT [Catalytic activity/Vol] 22 U/L 13-56 [facility] CO2 [Moles/Vol] 29.0 mmol/L 21.0-32.0 [facility] Globulin (S) [Mass/Vol] 3.9 g/dL 2.2-4.2 [facility] Urea nitrogen/Creatinine [Mass ratio] 14.5 mg/mg 10-20 [facility] - Hematology and Cell countsOrdered By: Vlad Fitzpatrick on 03-22-2023 Erythrocyte distribution width (RBC) [Entitic vol] 40.5 fL 35.1-43.9 [facility] Erythrocyte distribution width (RBC) [Ratio] 12.3 % 11.6-14.6 [facility] Immature granulocytes/100 WBC (Bld) 0.300 % 0.0-0.9 [facility] Comment on above: IG% - Immature Granu locytes (promyelocytes, myelocytes and metamyelocytes) > 1% indicates that a LEFT SHIFT is Present. MCH (RBC) [Entitic mass] 29.4 pg 27.0-32.0 [facility] Nucleated RBC/100 WBC (Bld) [Ratio] 0 % 0-5 [facility] MCHC Auto (RBC) [Mass/Vol]Or dered By: Vlad Fitzpatrick on 03-22-2023 MCHC (RBC) [Mass/Vol] 32.6 g/dL 32-36 [facility] Mucus LM Ql (Urine sed)Order ed By: Vlad Fitzpatrick on 03-22-2023 Mucus Ql (Urine sed) 0 SEEN /hpf [facility] Nitrite Test strip Ql (U)Ord ered By: Vlad Fitzpatrick on 03-22-2023 Nitrite Ql (U) Negative Negative [facility] No Panel InformationOrdered By: Vlad Fitzpatrick on 03-22-2023 Estimated GFR (MDRD) Amer 110 mL/min >60 [facility] Comment on above: GFR Calc Estimated GFR (MDRD) Non-Af Amer 91 mL/min >60 [facility] Comment on above: Non- GFR Calc Vitamin D 25-Hydroxy 50.2 ng/mL [facility] Comment on above: Vitamin D 25(OH) Sta tus Range Deficiency <20 ng/mL (50nmol/L) Insufficiency 20 - 30 ng/mL (50 - 75 nmol/L) Sufficiency 30 - 100 ng/mL (75 - 250 nmol/L) Toxicity >100 ng/mL (>250 nmol/L) Platelets bldOrdered By: [place] Fitzpatrick on 03-22-2023 Platelets (Bld) [#/Vol] 268 10*3/uL 150-450 [facility] Protein Test strip Ql (U)Ord ered By: Vlad Fitzpatrick on 03-22-2023 Protein Ql (U) Negative Negative [facility] Serum or plasma albumin tram urement (mass/volume)Ordered By: Vlad Fitzpatrick on 03-22-2023 Albumin [Mass/Vol] 3.6 g/dL 3.2-5.0 [facility] Serum or plasma albumin/glob ulin mass ratioOrdered By: Vlad Fitzpatrick on 03-22-2023 Albumin/Globulin [Mass ratio] 0.9 {ratio} 0.9-2.4 [facility] Serum or plasma calcium tram urement (mass/volume)Ordered By: Vlad Fitzpatrick on 03-22-2023 Calcium [Mass/Vol] 9.4 mg/dL 8.5-10.1 [facility] Serum or plasma creatinine m easurement (mass/volume)Ordered By: Vlad Fitzpatrick on 03-22-2023 Creatinine [Mass/Vol] 0.69 mg/dL 0.55-1.02 [facility] Comment on above: The validity of the calculated GFR & GFRAA in patients over 70 years has not been determined. Clinical correlation is essential. Serum or plasma urea nitroge n measurement (mass/volume)Ordered By: Vlad Fitzpatrick on 03-22-2023 Urea nitrogen [Mass/Vol] 10 mg/dL 7-18 [facility] Squamous epithelial cells de tection in urine sediment by light microscopyOrdered By: Vlad Fitzpatrick on 03-22-2023 Epithelial cells.squamous LM Ql (Urine sed) 0-5 SEEN /hpf 5-10 [facility] Thin prep Papanicolaou smear with manual screeningOrdered By: Vlad Fitzpatrick on 03-22-2023 Thin prep Papanicolaou smear with manual screening 19 U/L 15-37 [facility] Thin prep Papanicolaou smear with manual screening 2 5-15 [facility] Urine blood detectionOrdered By: Vlad Fitzpatrick on 03-22-2023 RBC Ql (U) Negative Negative [facility] RBC Ql (U) 0 SEEN /hpf 0-5 [facility] Urine clarityOrdered By: [place] Fitzpatrick on 03-22-2023 Clarity (U) Clear Clear [facility] Urine color determinationOrd ered By: Vlad Fitzpatrick on 03-22-2023 Color (U) Yellow Yellow [facility] Urine glucose detectionOrder ed By: Vlad Fitzpatrick on 03-22-2023 Glucose Ql (U) Normal mg/dl Normal [facility] Urine leukocyte esterase det ection by dipstickOrdered By: Vlad Fitzpatrick on 03-22-2023 Leukocyte esterase Test strip Ql (U) 25 /ul Negative [facility] Urine pHOrdered By: Vlad melara on 03-22-2023 pH (U) 6.5 [pH] 5.0 - 8.0 [facility] Urine sediment bacteria coun t by microscopy (number/high power field)Ordered By: Vlad Fitzpatrick on 03-22-2023 Bacteria LM.HPF (Urine sed) [#/Area] 0 /[HPF] None Seen [facility] Urine specific gravity measu rementOrdered By: Vlad Fitzpatrick on 03-22-2023 Specific gravity (U) [Rel density] 1.010 1.002-1.030 [facility] Urobilinogen Auto test strip Ql (U)Ordered By: Vlad Fitzpatrick on 03-22-2023 Urobilinogen Ql (U) Normal mg/dl Normal [facility] Whole blood hemoglobin A1c/t otal hemoglobin ratio (mass fraction)Ordered By: Vlad Fitzpatrick on 03-22-2023 HbA1c (Bld) [Mass fraction] 5.9 % 3.8-5.6 [facility] Comment on above: Normal < 5.7 % Predi abetic 5.7 - 6.4 % Diabetic >or= 6.5 % Please note range changes. Absolute lymphocyte counton 09-11-2021 Lymphocytes Auto (Unsp spec) [#/Vol] 2.36 10*3/uL 0.83-4.51 [facility] Work Phone: Basophil percentageon 2020 Basophil percentage 0 SEEN /hpf [facility] Work Phone: Bilirubin [Mass/Vol] 0.50 mg/dL 0.20-1.00 [facility] Work Phone: Comment on above: For patients on eltr ombopag therapy, use of Dimension [place] TBIL is not recommended. Chloride [Moles/Vol] 104 mmol/L 98-107 [facility] Work Phone: Cholesterol [Mass/Vol] 198 mg/dL <200 [facility] Work Phone: Comment on above: <200 mg/dL Desirable 200-240 mg/dL Borderline >240 mg/dL High Risk Eosinophils/100 WBC (Bld) 1.5 % 0-5 [facility] Work Phone: Glucose [Mass/Vol] 103 mg/dL 74-106 [facility] Work Phone: Comment on above: Fasting Glucose resu lt from 100 to 125 mg/dL suggests IMPAIRED HOMEOSTASIS per A.D.A. criteria.Please note revised GLUCOSE reference range effective 2017. Neutrophils (Bld) [#/Vol] 3.9 10*3/uL 2.0-7.7 [facility] Work Phone: Potassium [Moles/Vol] 3.9 mmol/L 3.5-5.1 [facility] Work Phone: Protein [Mass/Vol] 7.4 g/dL 6.4-8.2 [facility] Work Phone: Sodium [Moles/Vol] 139 mmol/L 136-145 [facility] Work Phone: Triglyceride [Mass/Vol] 176 mg/dL [facility] Work Phone: Comment on above: The drugs N-Acetylcy steine and Metamizole may falsely depress this assay.Serum Triglycerides Reference Interval Normal <150 mg/dL Borderline high 150 - 199 mg/dL High 200 - 499 mg/dL Very High > or = 500 mg/dL WBC (Bld) [#/Vol] 7.3 10*3/uL 4.4-11.0 [facility] Work Phone: Bilirubin Test strip Ql (U)o n 09-11-2021 Bilirubin Ql (U) Negative Negative [facility] Work Phone: Blood erythrocytes count (nu mber/volume)on 09-11-2021 RBC (Bld) [#/Vol] 4.93 10*6/uL 4.2-5.4 [facility] Work Phone: Blood hemoglobin measurement (mass/volume)on 09-11-2021 Hemoglobin (Bld) [Mass/Vol] 14.7 g/dL 12.0-15.0 [facility] Work Phone: Blood lymphocytes/100 leukoc yteson 09-11-2021 Lymphocytes/100 WBC (Bld) 32.4 % 19-41 [facility] Work Phone: [phone] Blood monocytes/100 leukocyt eson 09-11-2021 Monocytes/100 WBC (Bld) 11.0 % 0-10 [facility] Work Phone: [phone] Blood platelet mean volumeon 09-11-2021 Platelet mean volume (Bld) [Entitic vol] 10.0 fL 6.2-12.0 [facility] Work Phone: [phone] Determination of erythrocyte mean corpuscular volume (MCV)on 09-11-2021 MCV (RBC) [Entitic vol] 89.0 fL 81-99 [facility] Work Phone: Hematocrit Auto (Bld) [Volum e fraction]on 09-11-2021 Hematocrit (Bld) [Volume fraction] 43.9 % 37-47 [facility] Work Phone: Ketones Test strip Ql (U)on 09-11-2021 Ketones Ql (U) Negative Negative [facility] Work Phone: Laboratory - Chemistry and C hemistry - challengeon 09-11-2021 ALP [Catalytic activity/Vol] 79 U/L 45-117 [facility] Work Phone: [phone] ALT [Catalytic activity/Vol] 26 U/L 13-56 [facility] Work Phone: [phone] CO2 [Moles/Vol] 28.0 mmol/L 21.0-32.0 [facility] Work Phone: [phone] Globulin (S) [Mass/Vol] 3.8 g/dL 2.2-4.2 [facility] Work Phone: [phone] Urea nitrogen/Creatinine [Mass ratio] 15.0 mg/mg 10-20 [facility] Work Phone: Laboratory - Hematology and Cell countson 09-11-2021 Basophils/100 WBC (Unsp spec) 0.8 % 0-1 [facility] Work Phone: [phone] Erythrocyte distribution width (RBC) [Entitic vol] 40.8 fL 35.1-43.9 [facility] Work Phone: [phone] Erythrocyte distribution width (RBC) [Ratio] 12.4 % 11.6-14.6 [facility] Work Phone: [phone] Immature granulocytes/100 WBC (Bld) 0.300 % 0.0-0.9 [facility] Work Phone: [phone] Comment on above: IG% - Immature Granu locytes (promyelocytes, myelocytes and metamyelocytes) > 1% indicates that a LEFT SHIFT is Present. MCH (RBC) [Entitic mass] 29.8 pg 27.0-32.0 [facility] Work Phone: [phone] Neutrophils/100 WBC (Bld) 54.0 % 47-70 [facility] Work Phone: [phone] Nucleated RBC/100 WBC (Bld) [Ratio] 0 % 0-5 [facility] Work Phone: [phone] MCHC Auto (RBC) [Mass/Vol]on 09-11-2021 MCHC (RBC) [Mass/Vol] 33.5 g/dL 32-36 [facility] Work Phone: [phone] Mucus LM Ql (Urine sed)on Mucus Ql (Urine sed) 0 SEEN /hpf [facility] Work Phone: [phone] Nitrite Test strip Ql (U)on 09-11-2021 Nitrite Ql (U) Negative Negative [facility] Work Phone: [phone] Panel Informationon 09-11 Estimated GFR (MDRD) Amer 115 mL/min >60 [facility] Work Phone: [phone] Comment on above: GFR Calc Estimated GFR (MDRD) Non-Af Amer 95 mL/min >60 [facility] Work Phone: [phone] Comment on above: Non- GFR Calc Thyroid Stimulating Hormone (TSH) 2.05 uIU/mL 0.358-3.74 [facility] Work Phone: Platelets bldon 09-11-2021 Platelets (Bld) [#/Vol] 271 10*3/uL 150-450 [facility] Work Phone: Protein Test strip Ql (U)on 09-11-2021 Protein Ql (U) Negative Negative [facility] Work Phone: [phone] Serum or plasma albumin tram urement (mass/volume)on 09-11-2021 Albumin [Mass/Vol] 3.6 g/dL 3.2-5.0 [facility] Work Phone: [phone] Serum or plasma albumin/glob ulin mass ratioon 09-11-2021 Albumin/Globulin [Mass ratio] 0.9 {ratio} 0.9-2.4 [facility] Work Phone: Serum or plasma calcium tram urement (mass/volume)on 09-11-2021 Calcium [Mass/Vol] 9.0 mg/dL 8.5-10.1 [facility] Work Phone: [phone] Serum or plasma cholesterol in HDL measurement (mass/volume)on 09-11-2021 Cholesterol in HDL [Mass/Vol] 44 mg/dL [facility] Work Phone: Comment on above: The drugs N-Acetylcy steine and Metamizole may falsely depress this assay. Reference Range HDL <40 mg/dL Low HDL Cholesterol HDL >or= 60 mg/dL High HDL Cholesterol Serum or plasma cholesterol in VLDL measurement (mass/volume)on 09-11-2021 Cholesterol in VLDL [Mass/Vol] 35 mg/dL 5-40 [facility] Work Phone: [phone] Serum or plasma creatinine m easurement (mass/volume)on 09-11-2021 Creatinine [Mass/Vol] 0.66 mg/dL 0.55-1.02 [facility] Work Phone: Comment on above: The validity of the calculated GFR & GFRAA in patients over 70 years has not been determined. Clinical correlation is essential. Serum or plasma low density lipoprotein (LDL) cholesterol measurement (mass/volume)on 09-11-2021 Cholesterol in LDL [Mass/Vol] 119 mg/dL 0-130 [facility] Work Phone: Serum or plasma urea nitroge n measurement (mass/volume)on 09-11-2021 Urea nitrogen [Mass/Vol] 10 mg/dL 7-18 [facility] Work Phone: Squamous epithelial cells de tection in urine sediment by light microscopyon 09-11-2021 Epithelial cells.squamous LM Ql (Urine sed) 0 SEEN /hpf [facility] Work Phone: Thin prep Papanicolaou smear with manual screeningon 09-11-2021 Thin prep Papanicolaou smear with manual screening 17 U/L 15-37 [facility] Work Phone: Thin prep Papanicolaou smear with manual screening 7 5-15 [facility] Work Phone: Urine blood detectionon 08-15 0 RBC Ql (U) Negative Negative [facility] Work Phone: RBC Ql (U) 0 SEEN /hpf [facility] Work Phone: Urine clarityon 09-11-2021 Clarity (U) Clear Clear [facility] Work Phone: Urine color determinationon 09-11-2021 Color (U) Straw Yellow [facility] Work Phone: Urine glucose detectionon Glucose Ql (U) Normal mg/dl Normal [facility] Work Phone: Urine leukocyte esterase det ection by dipstickon 09-11-2021 Leukocyte esterase Test strip Ql (U) Negative Negative [facility] Work Phone: [phone] Urine pHon 09-11-2021 pH (U) 6.5 [pH] [facility] Work Phone: [phone] Urine sediment bacteria coun t by microscopy (number/high power field)on 09-11-2021 Bacteria LM.HPF (Urine sed) [#/Area] 0 /[HPF] None Seen [facility] Work Phone: Urine specific gravity measu rementon 09-11-2021 Specific gravity (U) [Rel density] 1.010 [facility] Work Phone: Urobilinogen Auto test strip Ql (U)on 09-11-2021 Urobilinogen Ql (U) Normal mg/dl Normal [facility] Work Phone: Whole blood hemoglobin A1c/t otal hemoglobin ratio (mass fraction)on 09-11-2021 HbA1c (Bld) [Mass fraction] 5.6 % 3.8-5.6 [facility] Work Phone: Comment on above: Normal < 5.7 % Predi abetic 5.7 - 6.4 % Diabetic >or= 6.5 % Please note range changes. Vital Signs Date Time Vital Sign Value Performing Clinician Faci lity 02-23-2023 13:04-0400 Body height 162.[address] Vlad Fitzpatrick Work Phone: [facility] 02-23-2023 13:04-0400 Body mass index (BMI) [Ratio] 25 kg/m2 Dr. Vlad Fitzpatrick Work Phone: [facility] 02-23-2023 13:04-0400 Body weight 66.[address] Vlad Fitzpatrick Work Phone: [facility] 02-23-2023 13:04-0400 Diastolic blood pressure 76 mm[Hg] Dr. Vlad Fitzpatrick Work Phone: [facility] 02-23-2023 13:04-0400 Systolic blood pressure 132 mm[Hg] Dr. Vlad Fitzpatrick Work Phone: [facility] Encounters Encounter Date Encounter Type Care Provider Facility Start: 03-21-2025 End: 03-21-2025 Patient encounter procedure Lori ANTUNEZ -Outpatient Breast [facility] Work Phone: Start: 03-21-2025 End: 03-21-2025 ambulatory Vlad Fitzpatrick Facility:[facility] Start: 09-22-2024 End: 09-22-2024 ambulatory Vlad Fitzpatrick Facility:[facility] Start: 09-18-2024 End: 09-18-2024 ambulatory Vlad Fitzpatrick Facility:[facility] Start: 08-08-2024 End: 08-08-2024 ambulatory Vlad Fitzpatrick Facility:[facility] Start: 07-08-2024 End: 07-08-2024 Emergency department patient visit Vlad Fitzpatrick Facility:[facility] Start: 05-31-2024 End: 05-31-2024 ambulatory Vlad Fitzpatrick Facility:[facility] Start: 05-31-2024 End: 05-31-2024 ambulatory Lori Sidhu [employer] Facility:[facility] Start: 03-30-2024 ambulatory Nitin Whitaker Facility:[facility] Start: 03-30-2024 End: 03-30-2024 ambulatory Vlad Fitzpatrick Facility:[facility] Start: 03-29-2024 End: 03-29-2024 Emergency department patient visit Titus Kumar Facility:[facility] Start: 03-22-2023 End: 03-22-[address] Vlad Fitzpatrick Work Phone: [facility] Work Phone: Start: 03-22-2023 End: 03-22-[address] Vlad Fitzpatrick Work Phone: [facility] Work Phone: Start: 03-18-2023 End: 03-18-[address] Vlad Fitzpatrick Work Phone: [facility] Work Phone: Start: 03-18-2023 End: 03-18-[address] Vlad Fitzpatrick Work Phone: [facility] Work Phone: Start: 03-02-2023 End: 03-02-[address] Vlad Fitzpatrick Work Phone: [facility] Work Phone: Start: 02-23-2023 End: 02-23-[address] Vlad Fitzpatrick Work Phone: [facility] Work Phone: Start: 03-17-2022 End: 03-17-2022 Patient encounter procedure [facility] Start: 11-07-2021 End: 11-07-2021 Patient encounter procedure [facility], [facility] Start: 11-05-2021 End: 11-05-2021 Discharged Recurring [facility] Therapy, [facility] Start: 09-11-2021 Patient encounter procedure [facility] [place] Procedures Date Procedure Procedure Detail Performing Clinician Start: 03-21-2025 Screening mammography Rachel Fitzpatrick MD Work Phone: Start: 03-18-2023 Screening mammography Rachel Fitzpatrick Work Phone: Start: 03-17-2022 Screening mammography Start: 11-07-2021 Thyroid Immunizations Immunization Date Immunization Notes Care Provider [facility] 06-23-2020 influenza, injectabl e, quadrivalent, preservative free Dr. Vlad Fitzpatrick MD Work Phone: [facility] 06-23-2020 influenza, seasonal, injectable [facility] 06-27-2019 influenza, injectabl e, quadrivalent, preservative free Dr. Vlad Fitzpatrick MD Work Phone: [facility] 06-27-2019 influenza, seasonal, injectable [facility] 06-15-2018 influenza, injectabl e, quadrivalent, preservative free Dr. Vlad Fitzpatrick MD Work Phone: [facility] 06-15-2018 influenza, seasonal, injectable [facility] 06-14-2017 influenza, injectabl e, quadrivalent, preservative free Dr. Vlad Fitzpatrick MD Work Phone: [facility] 06-14-2017 influenza, seasonal, injectable [facility] 06-14-2016 influenza, injectabl e, quadrivalent, preservative free Dr. Vlad Fitzpatrick MD Work Phone: [facility] 06-14-2016 influenza, seasonal, injectable [facility] 07-09-2015 influenza, injectabl e, quadrivalent, preservative free Dr. Vlad Fitzpatrick MD Work Phone: [facility] 07-09-2015 influenza, seasonal, injectable [facility] 06-07-2014 influenza, injectabl e, quadrivalent, preservative free Dr. Vlad Fitzpatrick MD Work Phone: [facility] 06-07-2014 influenza, seasonal, injectable [facility] Payers Date Payer Category Payer Medicare [id number] 2024 Self-pay [id number] 2024 Unknown [id number] Unknown [id number] Unknown [id number] Unknown [id number] 2.16.8 [id number] Unknown [id number] 2.16.8 [id number] Unknown [id number] 2.16.8 [id number] Unknown [id number] 2.16.8 [id number] Unknown [id number] 2.16.8 [id number] Unknown [id number] 2.16.8 [id number] Unknown [id number] 2.16.8 [id number] Unknown [id number] 2.16.8 [id number] Unknown [id number] 2.16.8 [id number] Unknown [id number] 2.16.8 [id number] Social History Date Type Detail Facility Start: 07-31-2021 End: 03-02-2023 Tobacco smoking status NHIS Unknown if ever smoked [facility] Start: 1960 Sex Assigned At Female [facility] Start: 09-22-2024 Tobacco smoking stat us NHIS Never smoked tobacco (finding) [facility] Goals Date Patient Goal Desired Activity /State Evaluation note Note Date & Type Note Facility Evaluation note No assessment information availa ble [facility] Work Phone: Evaluation note Note Date & Type Note Facility Evaluation note Diagnosis Onset Date Neck pain acute Segmental and somatic dysfun ction of cervical region acute Segmental and somatic dysfun ction of lumbar region acute Segmental and somatic dysfun ction of pelvic region acute Segmental and somatic dysfun ction of thoracic region acute Degenerative disc disease, cervical chronic Neck pain acute Segmental and somatic dysfun ction of cervical region acute Segmental and somatic dysfun ction of lumbar region acute Segmental and somatic dysfun ction of pelvic region acute Segmental and somatic dysfun ction of thoracic region acute Degenerative disc disease, cervical chronic [facility] Work Phone: Reason for referral (narrative) Note Date & Type Note Facility Reason for referral (narrative) No reason for referral information available [facility] Work Phone: Chief Complaint and Reason for Visit Chief Complaint E ORDER CERVICALGIA/RX HERE THYROID NODULE Chief Complaint SCREENING Chief Complaint REEVAL Neck pain Back pain SCREENING EORDER Reason for Visit Neck pain Segmental and somatic dysfunction of cervical region Segmental and somatic dysfunction of lumbar region Segmental and somatic dysfunction of pelvic region Segmental and somatic dysfunction of thoracic region Degenerative disc disease, cervical Neck pain Segmental and somatic dysfunction of cervical region Segmental and somatic dysfunction of lumbar region Segmental and somatic dysfunction of pelvic region Segmental and somatic dysfunction of thoracic region Degenerative disc disease, cervical Chief Complaint Admit Date SCREENING March 21, 2025 7:56a m Family History Relationship Condition Age at Onset Recorded Date/T lilibeth mother Hypertension Unknown Disorder of thyroid Unknown Hypercholesterolemia Unknown father Cardiac disease Unknown Histiocytic nodular lymphoma Unknown Relationship Condition Age at Onset Recorded Date/T lilibeth mother Hypertension Unknown Disorder of thyroid Unknown Hypercholesterolemia Unknown father Cardiac disease Unknown Histiocytic nodular lymphoma Unknown aunt Malignant neoplasm of breast Unknown Advance Directives Advance Directive Response Recorded Date/ Time Living Will No May 01 12:00pm Power of Ota No May 01, 021 12:00pm Summary Purpose Additional Source Comments Care Teams (unrecognized sec tion and content) Team Status: Active Member Role Status Dates Dr. Vlad Fitzpatrick MD Primary Care Provider Active Team Status: Inactive Member Role Status Dates Dr. Vlad Fitzpatrick MD Primary Care Provider, Referr ing Provider Active Dr. Tonie Kahn DC Attending Provider Active Team Status: Inactive Member Role Status Dates Dr. Vlad Fitzpatrick MD Primary Care Provider Active Dr. Sydney Jhaveri DO Attending Provider, Referrin g Provider Active Team Status: Active Member Role Status Dates Dr. Vlad Fitzpatrick MD Primary Care Pr ovider, Attending Provider, Referring Provider Active Team Status: Inactive Member Role Status Dates Dr. Vlad Fitzpatrick MD Primary Care Pr ovider, Attending Provider, Referring Provider Active Team Status: Active Member Role/Relationship Status Dates Dr. Vlad Fitzpatrick MD Primary Care Provider Active Team Status: Inactive Member Role/Relationship Status Dates Dr. Vlad Fitzpatrick MD Primary Care Provider Active Start: March 21, 2025 End: March 21, 2025 Lori Sidhu [employer], [employer] Attending Provider Active Start: March 21, 2025 End: March 21, 2025 Lori Sidhu NP [employer] Referring Provider Active Start: March 21, 2025 End: March 21, 2025 INFORMATION SOURCE (unrecogn ized section and content) DATE CREATED AUTHOR 03/22/2025 [facility] FOR RECORDS PERTAINING TO PATIENTS WHO ARE OR HAVE BEEN ENROLLED IN A CHEMICAL DEPENDENCY/SUBSTANCEABUSE PROGRAM, SOME INFORMATION MAY BE OMITTED. This clinical summary was aggregated from multiple sources. Caution should be exercised in using it in the provision of clinical care. This summary normalizes information from multiple sources, and as a consequence, information in this document may materially change the coding, format and clinical context of patient data. In addition, data may be omitted in some cases. CLINICAL DECISIONS SHOULD BE BASED ON THE PRIMARY CLINICAL RECORDS. [employer] [facility]. provides no warranty or guarantee of the accuracy or completeness of information in this document.
--- OUTSIDE RECORDS SUMMARY | 2025-03-28 19:20 | XMS RPT_ITS | CCD ---
Author Organization [facility] CliniSyny Care Team Providers Care Ballet Professor Name Role Phone Dr. Vlad Fitzpatrick Primary [...] Attending Unavailable SchVlad melara Referring Unavailable Thea COMPUTER SPECIALISTLori Referring Unavailable Vlad Fitzpatrick Primary Care Unavailable Thea COMPUTER SPECIALISTLori Attending Unavailable Titus Kumar Attending Unavailable Schinyonatan, Vlad Peraza Primary Care Unavailable Schinyonatan, Vlad Peraza Primary Care Unavailable Papa Sandoval Attending Unavailable Schinyonatan, Vlad Peraza Primary Care Unavailable Avery Fonseca Attending Unavailable Vlad Fitzpatrick Referring Unavailable SchVlad melara Primary Care Unavailable Thea COMPUTER SPECIALISTLori Attending Unavailable Vlad Fitzpatrick Referring Unavailable Dr. Vlad Fitzpatrick MD Primary Care Provider Thea COMPUTER SPECIALIST-Lori Nieves Attending Provider [phone] Thea COMPUTER SPECIALIST-CLori Referring Provider Allergies Allergy Classification Reported Allergen(s) Allergy Type Date of Onset Reaction(s) Facility (5 sources) Lisinopril Drug Allergy 05-02-2021 Swelling [facility] Comment on above: of the lips (1 source) Lisinopril Drug Allergy 09-22-2024 [facility] Repository Medications Current Medications Medication Drug Class(es) [...] TABLET PO DAILY May 13, 2020 12:00am Brownell-3 Fatty Acids 1,000 mg capsule (1 source) Start: 09-22-2024 take 1 capsule by mouth once daily Brownell-3 Fatty Acids 1,000 mg capsule Active 1000 [...] By: Adriana Salinas on 03-21-2025 Study report [facility] Imaging Services [address] [place], [place] [address] SCRN MAMM (CAD)W/KATIE BILAT MR#: [id number] Acct: [id number] Name: LIAM BURR Rep #: [id number] : 1960 F 64 From: Maral Salinas MD PCP: Dr. Vlad Fitzpatrick MD Status: RE G CLI Study:SCRN MAMM (CAD)W/KATIE BILAT Date of Exa m: 03/21/25 Exam# [id number] Ordering Dr: Lori Sidhu COMPUTER SPECIALIST COMPUTER SPECIALIST-C EXAM: SCRN MAMM (CAD)W/KATIE BILAT DATE: 03/21/2025 [...] be mailed to the patient. Reading Location: [facility] CC: COMPUTER SPECIALIST-C Lori Sidhu; Dr. Vlad Fitzpatrick MD ~ Licensed Dispensing Optician: Signed [facility] SCRN MAMM (CAD)W/KATIE BILATo n 03-21-2025 SCRN MAMM (CAD)W/KATIE BILAT [facility] Imaging Services [address] [place] [address] [id number] SCRN MAMM (CAD)W/KATIE BILAT MR#: [id number] Acct: [id number] Name: LIAM BURR Rep #: [id number] : 1960 F 64 From: Adriana Salinas MD PCP: Dr. Vlad Fitzpatrick MD Status: [facility] Study: SCRN MAMM (CAD)W/KATIE BILAT Date of Exam: 06/07 Exam# [id number] Ordering Dr: Lori Sidhu NP COMPUTER SPECIALIST -C EXAM: SCRN MAMM (CAD)W/KATIE BILAT DATE: [...] be mailed to the patient. Reading Location: [id number] CC: TULIO Sidhu; Dr. Vlad Fitzpatrick MD Licensed Dispensing Optician: Signed Normal [facility] 12 Lead EKG performed by [facility] on 09-22-2024 12 Lead EKG performed by [address] [address] 12 Lead EKG performed by [facility] 09/22/24828 MR#: [id number] Acct: [id number] Name: LIAM BURR Rep #: [id number] : 1960 63 From: Avery Fonseca MD Attending Dr: Dr. Avery Fonseca MD Status: DE P AMB Ordering Dr: Avery Fonseca MD Date: 09/22/24 Location: [facility] Sex: F C Admitted: [facility]12 Lead EKG performed by [facility] ECG Report Interpretation ----Sinus Rhythm -Incomplete right bundle branch block. -Left atrial enlargement. -ST depression -Nondiagnostic. ABNORMAL Electronically signed on 09/22/2024 at 12:[address] Avery Fonseca [employer] Version 8610 09/22/24 1236 Date Avery Fonseca MD CC: Dr. Vlad Fitzpatrick MD Date Dictated: 09/22/24828 Date Transcribed: 09/22/24828 Licensed Dispensing Optician: Signed Normal [facility] Cardiology Visit Reporton Cardiology Visit Report [facility] [address] [place] [place] [address] OFFICE VISIT Date of Service: 09/22/24 MR#: [id number] Acct: [id number] Name: LIAM BURR Rep #: [id number] : 1960 Provider: Dr. Avery larios MD Age/Sex: 63/F Location: [facility] Status: Signed HPI HPI History of Present [...] room air Intake Visit Reasons: Palpitations (Schinner) Realtime Court Reporter Required: No Accompanied by: Self Is patient [...] you fallen in the past year?: No [facility] Medical History (Updated 09/22/24 @ 12:[address] Avery Fonseca MD) Palpitations Wears glasses Thyroid disease Injury of head and neck Leg cramps Chronic neck and back pain Knee pain HTN (hypertension) Surgical History Hx of colonoscopy History of ora (more content not included)... Normal [facility] CBC W/Diff, Automatedon Absolute Lymph 2.37 X10 3/uL Normal 0.83-4.51 [facility] Comment on above: Order Comment: Order Date: 03/28/24 Order Info: 0184-1 - CBCD Performed By: #### L 501.5200, L100.0100, L501.9985, L500.4100, L501.9520 #### [facility] [address] [place], [address] Absolute Neut 4.0 X10 3/uL Normal 2.0-7.7 [facility] Comment on above: Order Comment: Order Date: 03/28/24 Order Info: 0184-1 - CBCD Performed By: #### L 501.5200, L100.0100, L501.9985, L500.4100, L501.9520 #### [facility] [address] [place], [address] Basophils/100 WBC (Bld) 0.6 % Normal 0-1 [facility] Comment on above: Order Comment: Order Date: 03/28/24 Order Info: 0184-1 - CBCD Performed By: #### L 501.5200, L100.0100, L501.9985, L500.4100, L501.9520 #### [facility] [address] [place], [address] Eosinophils/100 WBC (Bld) 1.0 % Normal 0-5 [facility] Comment on above: Order Comment: Order Date: 03/28/24 Order Info: 0184-1 - CBCD Performed By: #### L 501.5200, L100.0100, L501.9985, L500.4100, L501.9520 #### [facility] [address] [place], [address] Erythrocyte distribution width (RBC) [Ratio] 12.6 % Normal 11.6-14.6 [facility] Comment on above: Order Comment: Order Date: 03/28/24 Order Info: 0184-1 - CBCD Performed By: #### L 501.5200, L100.0100, L501.9985, L500.4100, L501.9520 #### [facility] [address] [place], [address] Hematocrit (Bld) [Volume fraction] 46.0 % Normal 37-47 [facility] Comment on above: Order Comment: Order Date: 03/28/24 Order Info: 0184- - CBCD Performed By: #### L 501.5200, L100.0100, L501.9985, L500.4100, L501.9520 #### [facility] [address] [place], [address] Hemoglobin (Bld) [Mass/Vol] 14.8 g/dL Normal 12.0-15.0 [facility] Comment on above: Order Comment: Order Date: 03/28/24 Order Info: 0184-1 - CBCD Performed By: #### L 501.5200, L100.0100, L501.9985, L500.4100, L501.9520 #### [facility] [address] [place], [address] IG% 0.100 Normal 0.0-0.9 [facility] Comment on above: Order Comment: Order Date: 03/28/24 Order Info: 0184-1 - CBCD Result Comment: IG% - Immature Granulocytes (promyelocytes, myelocytes and metamyelocytes) > 1% indicates that a LEFT SHIFT is Present. Performed By: #### L 501.5200, L100.0100, L501.9985, L500.4100, L501.9520 #### [facility] [address] [place], [address] Lymphocytes/100 WBC (Bld) 32.7 % Normal 19-41 [facility] Comment on above: Order Comment: Order Date: 03/28/24 Order Info: 018- - CBCD Performed By: #### L 501.5200, L100.0100, L501.9985, L500.4100, L501.9520 #### [facility] [address] [place], [address] MCH (RBC) [Entitic mass] 28.8 pg Normal 27.0-32.0 [facility] Comment on above: Order Comment: Order Date: 03/28/24 Order Info: 018- - CBCD Performed By: #### L 501.5200, L100.0100, L501.9985, L500.4100, L501.9520 #### [facility] [address] [place], [address] MCHC (RBC) [Mass/Vol] 32.2 g/dL Normal 32-36 [facility] Comment on above: Order Comment: Order Date: 03/28/24 Order Info: 018- - CBCD Performed By: #### L 501.5200, L100.0100, L501.9985, L500.4100, L501.9520 #### [facility] [address] [place], [address] MCV (RBC) [Entitic vol] 89.5 fL Normal 81-99 [facility] Comment on above: Order Comment: Order Date: 03/28/24 Order Info: 018- - CBCD Performed By: #### L 501.5200, L100.0100, L501.9985, L500.4100, L501.9520 #### [facility] [address] [place], [address] Monocytes/100 WBC (Bld) 10.1 % High 0-10 [facility] Comment on above: Order Comment: Order Date: 03/28/24 Order Info: 0184-1 - CBCD Performed By: #### L 501.5200, L100.0100, L501.9985, L500.4100, L501.9520 #### [facility] [address] [place], [address] Neutrophils/100 WBC (Bld) 55.5 % Normal 47-70 [facility] Comment on above: Order Comment: Order Date: 03/28/24 Order Info: 0184-1 - CBCD Performed By: #### L 501.5200, L100.0100, L501.9985, L500.4100, L501.9520 #### [facility] [address] [place], [address] Nucleated RBC (Bld) [#/Vol] 0 10*3/uL Normal 0-5 [facility] Comment on above: Order Comment: Order Date: 03/28/24 Order Info: 0184-1 - CBCD Performed By: #### L 501.5200, L100.0100, L501.9985, L500.4100, L501.9520 #### [facility] [address] [place], [address] Platelet mean volume (Bld) [Entitic vol] 10.2 fL Normal 6.2-12.0 [facility] Comment on above: Order Comment: Order Date: 03/28/24 Order Info: 0184-1 - CBCD Performed By: #### L 501.5200, L100.0100, L501.9985, L500.4100, L501.9520 #### [facility] [address] [place], [address] Platelets (Bld) [#/Vol] 270 10*3/uL Normal 150-450 [facility] Comment on above: Order Comment: Order Date: 03/28/24 Order Info: 0184-1 - CBCD Performed By: #### L 501.5200, L100.0100, L501.9985, L500.4100, L501.9520 #### [facility] [address] [place], [address] RBC (Bld) [#/Vol] 5.14 10*6/uL Normal 4.2-5.4 [facility] Comment on above: Order Comment: Order Date: 03/28/24 Order Info: 0184-1 - CBCD Performed By: #### L 501.5200, L100.0100, L501.9985, L500.4100, L501.9520 #### [facility] [address] [place], [address] RDW SD 41.6 fl Normal 35.1-43.9 [facility] Comment on above: Order Comment: Order Date: 03/28/24 Order Info: 0184-1 - CBCD Performed By: #### L 501.5200, L100.0100, L501.9985, L500.4100, L501.9520 #### [facility] [address] [place], [address] WBC (Bld) [#/Vol] 7.3 10*3/uL Normal 4.4-11.0 [facility] Comment on above: Order Comment: Order Date: 03/28/24 Order Info: 0184-1 - CBCD Performed By: #### L 501.5200, L100.0100, L501.9985, L500.4100, L501.9520 #### [facility] [address] [place], [address] Hemoglobin A1con 09-18-2024 HbA1c (Bld) [Mass fraction] 5.7 % High 3.8-5.6 [facility] Comment on above: Order Comment: Order Date: 03/28/24Order Info: 4548-4 - A1C Result Comment: Norm al < 5.7 % Prediabetic 5.7 - 6.4 % Diabetic >or= 6.5 % Please note range changes. Performed By: #### L 300.8000, L500.2500, L100.0100, L501.5200, L501.4020 #### [facility] [address] [place], [address] Lipid Profileon 09-18-2024 Cholesterol [Mass/Vol] 217 mg/dL High 200 [facility] Comment on above: Order Comment: Order Date: 03/28/24 Order Info: 81300-0 - LIPID Order Info: 35797-3 - MG Order Info: 3016-3 - TSH Result Comment: <200 mg/dL Desirable 200-240 mg/dL Borderline >240 mg/dL High Risk Performed By: #### L 501.5200, L100.0100, L501.9985, L500.4100, L501.9520 #### [facility] [address] [place], [address] Cholesterol in HDL [Mass/Vol] 51 mg/dL Normal [facility] Comment on above: Order Comment: Order Date: 03/28/24 Order Info: 05969-9 - LIPID Order Info: 16468-3 - MG Order Info: 3016-3 - TSH Result Comment: The drugs N-Acetylcysteine and Metamizole may falsely depress this assay. Reference Range HDL <40 mg/dL Low HDL Cholesterol HDL >or= 60 mg/dL High HDL Cholesterol Performed By: #### L 501.5200, L100.0100, L501.9985, L500.4100, L501.9520 #### [facility] [address] [place], [address] Cholesterol in LDL [Mass/Vol] 137 mg/dL High 0-130 [facility] Comment on above: Order Comment: Order Date: 03/28/24 Order Info: 30700-7 - LIPID Order Info: 19748-1 - MG Order Info: 3016-3 - TSH Performed By: #### L 501.5200, L100.0100, L501.9985, L500.4100, L501.9520 #### [facility] [address] [place], [address] Cholesterol in VLDL [Mass/Vol] 29 mg/dL Normal 5-40 [facility] Comment on above: Order Comment: Order Date: 03/28/24 Order Info: 41299-6 - LIPID Order Info: 68227-8 - MG Order Info: 3016-3 - TSH Performed By: #### L 501.5200, L100.0100, L501.9985, L500.4100, L501.9520 #### [facility] [address] [place], [address] Triglyceride [Mass/Vol] 147 mg/dL Normal [facility] Comment on above: Order Comment: Order Date: 03/28/24 Order Info: 28604-1 - LIPID Order Info: 30119-4 - MG Order Info: 6-3 - TSH Result Comment: The drugs N-Acetylcysteine and Metamizole may falsely depress this assay. Serum Triglycerides Reference Interval Normal <150 mg/dL Borderline high 150 - 199 mg/dL High 200 - 499 mg/dL Very High > or = 500 mg/dL Performed By: #### L 501.5200, L100.0100, L501.9985, L500.4100, L501.9520 #### [facility] [address] [place], [address] Magnesiumon 09-18-2024 Magnesium [Mass/Vol] 2.2 mg/dL Normal 1.6-2.6 [facility] Comment on above: Order Comment: Order Date: 03/28/24 Order Info: 65176-0 - LIPID Order Info: 63191-1 - MG Order Info: 3016-3 - TSH Performed By: #### L 501.5200, L100.0100, L501.9985, L500.4100, L501.9520 #### [facility] [address] [place], [address] Thyroid Stim Hormone (TSH)on 09-18-2024 TSH 1.590 uIU/mL Normal 0.358-3.740 [facility] Comment on above: Order Comment: Order Date: 03/28/24 Order Info: [id number] - LIPID Order Info: 32321-4 - MG Order Info: 3016-3 - TSH Performed By: #### L 501.5200, L100.0100, L501.9985, L500.4100, L501.9520 #### [facility] [address] [place], [address] Urinalysis, Completeon 09-18 BACTERIA 0 SEEN Normal None Seen [facility] Comment on above: Order Comment: CLEAN CATCH Performed By: #### L 400.0001 #### [facility] [address] [place], [address] EPI,SQUAMOUS 0 SEEN Normal 5-10 [facility] Comment on above: Order Comment: CLEAN CATCH Performed By: #### L 400.0001 #### [facility] [address] [place], [address] Mucus Ql (Urine sed) 0 SEEN Normal [facility] Comment on above: Order Comment: CLEAN CATCH Performed By: #### L 400.0001 #### [facility] [address] [place], [address] RBC 0 SEEN Normal 0-5 [facility] Comment on above: Order Comment: CLEAN CATCH Performed By: #### L 400.0001 #### [facility] [address] [place], [address] WBC 0 SEEN Normal 0-5 [facility] Comment on above: Order Comment: CLEAN CATCH Performed By: #### L 400.0001 #### [facility] [address] [place], [address] Dexa Bone Density Studyon Dexa Bone Density Study [facility] Imaging Services [address] [place] [address] Dexa Bone Density Study MR#: [id number] Acct: [id number] Name: LIAM BURR Rep #: [id number] : 1960 F 63 From: Faraz pantoja MD PCP: Dr. Vlad Fitzpatrick MD Status: [facility] Study: Dexa Bone Density Study Date of Exam: 08/08/24 Exam# [id number] Ordering Dr: Vlad Fitzpatrick MD [id number] STUDY: DUAL ENERGY X-RAY ABSORPTIOMETRY / DXA [...] EST , CC: Dr. Vlad Fitzpatrick MD Licensed Dispensing Optician: Signed Normal [facility] 12 Lead EKGon 07-08-2024 12 Lead EKG [facility] Services [address] [place] [address] 12 Lead EKG 07/08/24 1644 MR#: [id number] Acct: [id number] Name: LIAM BURR Rep #: [id number] : 1960 63 From: Nitin Whitaker MD [...] ECG Confirmed by NITIN WHITAKER MD ([id number]), online editor TINA RIVERA ([id number]) on 07/10/2024 9:34:27 AM Referred By: KAREN/HONG Confirmed By:NITIN WHITAKER MD 07/10/24 0934 Date Nitin Whitaker MD CC: TULIO Wilkes; Dr. Vlad Fitzpatrick MD; Dr. Papa Sandoval, DO Signed Normal [facility] BNP,B-Type NATRIURETIC PEPTI Dwain 07-08-2024 Natriuretic peptide B (Bld) [Mass/Vol] 28.1 pg/mL Normal 0-100 [facility] Comment on above: Performed By: #### L 300.8000, L500.2500, L100.0100, L501.5200, L501.4020 #### [facility] [address] [place], [address] Basic Metabolic Profile (BMP )on 07-08-2024 BUN/CRE 13.4 RATIO Normal 10-20 [facility] Comment on above: Order Comment: 'TROP ' Serial specimen #1, #2 or #3: 1 Performed By: #### L 300.8000, L500.2500, L100.0100, L501.5200, L501.4020 #### [facility] [address] [place], [address] CA,Total 9.4 mg/dL Normal 8.5-10.1 [facility] Comment on above: Order Comment: 'TROP ' Serial specimen #1, #2 or #3: 1 Performed By: #### L 300.8000, L500.2500, L100.0100, L501.5200, L501.4020 #### [facility] [address] [place], [address] Chloride [Moles/Vol] 107 mmol/L Normal 98-107 [facility] Comment on above: Order Comment: 'TROP ' Serial specimen #1, #2 or #3: 1 Performed By: #### L 300.8000, L500.2500, L100.0100, L501.5200, L501.4020 #### [facility] [address] [place], [address] CO2 [Moles/Vol] 24.0 mmol/L Normal 21.0-32.0 [facility] Comment on above: Order Comment: 'TROP ' Serial specimen #1, #2 or #3: 1 Performed By: #### L 300.8000, L500.2500, L100.0100, L501.5200, L501.4020 #### [facility] [address] [place], [address] Creatinine [Mass/Vol] 0.74 mg/dL Normal 0.55-1.02 [facility] Comment on above: Order Comment: 'TROP ' Serial specimen #1, #2 or #3: 1 Result Comment: The validity of the calculated GFR GFRAA in patients over 70 years has not been determined. Clinical correlation is essential. Performed By: #### L 300.8000, L500.2500, L100.0100, L501.5200, L501.4020 #### [facility] [address] [place], [address] ECRCL 65.98 ml/min Normal [facility] Comment on above: Order Comment: 'TROP ' Serial specimen #1, #2 or #3: 1 Performed By: #### L 300.8000, L500.2500, L100.0100, L501.5200, L501.4020 #### [facility] [address] [place], [address] EST GFR - AA 100 mL/min Normal >60 [facility] Comment on above: Order Comment: 'TROP ' Serial specimen #1, #2 or #3: 1 Result Comment: Afri can Congolese GFR Calc Performed By: #### L 300.8000, L500.2500, L100.0100, L501.5200, L501.4020 #### [facility] [address] [place], [address] GAP 6 Normal 5-15 [facility] Comment on above: Order Comment: 'TROP ' Serial specimen #1, #2 or #3: 1 Performed By: #### L 300.8000, L500.2500, L100.0100, L501.5200, L501.4020 #### [facility] [address] [place], [address] GFR/1.73 sq M.predicted among non-blacks MDRD (S/P/Bld) [Vol rate/Area] 83 mL/min/{1.73_m2} Normal >60 [facility] Comment on above: Order Comment: 'TROP ' Serial specimen #1, #2 or #3: 1 Result Comment: Non- GFR Calc Performed By: #### L 300.8000, L500.2500, L100.0100, L501.5200, L501.4020 #### [facility] [address] [place], [address] Glucose [Mass/Vol] 164 mg/dL High 74-106 [facility] Comment on above: Order Comment: 'TROP ' Serial specimen #1, #2 or #3: 1 Result Comment: Fast ing Glucose result greater than or equal to 126 mg/dL suggests DIABETES MELLITUS per A.D.A. criteria. Performed By: #### L 300.8000, L500.2500, L100.0100, L501.5200, L501.4020 #### [facility] [address] [place], [address] Potassium [Moles/Vol] 3.4 mmol/L Low 3.5-5.1 [facility] Comment on above: Order Comment: 'TROP ' Serial specimen #1, #2 or #3: 1 Performed By: #### L 300.8000, L500.2500, L100.0100, L501.5200, L501.4020 #### [facility] [address] [place], [address] Sodium [Moles/Vol] 137 mmol/L Normal 136-145 [facility] Comment on above: Order Comment: 'TROP ' Serial specimen #1, #2 or #3: 1 Performed By: #### L 300.8000, L500.2500, L100.0100, L501.5200, L501.4020 #### [facility] [address] [place], [address] Urea nitrogen [Mass/Vol] 10 mg/dL Normal 7-18 [facility] Comment on above: Order Comment: 'TROP ' Serial specimen #1, #2 or #3: 1 Performed By: #### L 300.8000, L500.2500, L100.0100, L501.5200, L501.4020 #### [facility] [address] [place], [address] CBC W/Diff, Automatedon 10-2 -2023 Absolute Lymph 2.83 X10 3/uL Normal 0.83-4.51 [facility] Comment on above: Performed By: #### L 300.8000, L500.2500, L100.0100, L501.5200, L501.4020 #### [facility] [address] [place], [address] Absolute Neut 7.7 X10 3/uL Normal 2.0-7.7 [facility] Comment on above: Performed By: #### L 300.8000, L500.2500, L100.0100, L501.5200, L501.4020 #### [facility] [address] [place], [address] Basophils/100 WBC (Bld) 0.5 % Normal 0-1 [facility] Comment on above: Performed By: #### L 300.8000, L500.2500, L100.0100, L501.5200, L501.4020 #### [facility] [address] [place], [address] Eosinophils/100 WBC (Bld) 0.3 % Normal 0-5 [facility] Comment on above: Performed By: #### L 300.8000, L500.2500, L100.0100, L501.5200, L501.4020 #### [facility] [address] [place], [address] Erythrocyte distribution width (RBC) [Ratio] 12.3 % Normal 11.6-14.6 [facility] Comment on above: Performed By: #### L 300.8000, L500.2500, L100.0100, L501.5200, L501.4020 #### [facility] [address] [place], [address] Hematocrit (Bld) [Volume fraction] 44.9 % Normal 37-47 [facility] Comment on above: Performed By: #### L 300.8000, L500.2500, L100.0100, L501.5200, L501.4020 #### [facility] [address] [place], [address] Hemoglobin (Bld) [Mass/Vol] 15.8 g/dL High 12.0-15.0 [facility] Comment on above: Performed By: #### L 300.8000, L500.2500, L100.0100, L501.5200, L501.4020 #### [facility] [address] [place], [address] IG% 0.300 Normal 0.0-0.9 [facility] Comment on above: Result Comment: IG% - Immature Granulocytes (promyelocytes, myelocytes and metamyelocytes) > 1% indicates that a LEFT SHIFT is Present. Performed By: #### L 300.8000, L500.2500, L100.0100, L501.5200, L501.4020 #### [facility] [address] [place], [address] Lymphocytes/100 WBC (Bld) 24.7 % Normal 19-41 [facility] Comment on above: Performed By: #### L 300.8000, L500.2500, L100.0100, L501.5200, L501.4020 #### [facility] [address] [place], [address] MCH (RBC) [Entitic mass] 30.7 pg Normal 27.0-32.0 [facility] Comment on above: Performed By: #### L 300.8000, L500.2500, L100.0100, L501.5200, L501.4020 #### [facility] [address] [place], [address] MCHC (RBC) [Mass/Vol] 35.2 g/dL Normal 32-36 [facility] Comment on above: Performed By: #### L 300.8000, L500.2500, L100.0100, L501.5200, L501.4020 #### [facility] [address] [place], [address] MCV (RBC) [Entitic vol] 87.2 fL Normal 81-99 [facility] Comment on above: Performed By: #### L 300.8000, L500.2500, L100.0100, L501.5200, L501.4020 #### [facility] [address] [place], [address] Monocytes/100 WBC (Bld) 7.2 % Normal 0-10 [facility] Comment on above: Performed By: #### L 300.8000, L500.2500, L100.0100, L501.5200, L501.4020 #### [facility] [address] [place], [address] Neutrophils/100 WBC (Bld) 67.0 % Normal 47-70 [facility] Comment on above: Performed By: #### L 300.8000, L500.2500, L100.0100, L501.5200, L501.4020 #### [facility] [address] [place], [address] Nucleated RBC (Bld) [#/Vol] 0 10*3/uL Normal 0-5 [facility] Comment on above: Performed By: #### L 300.8000, L500.2500, L100.0100, L501.5200, L501.4020 #### [facility] [address] [place], [address] Platelet mean volume (Bld) [Entitic vol] 9.9 fL Normal 6.2-12.0 [facility] Comment on above: Performed By: #### L 300.8000, L500.2500, L100.0100, L501.5200, L501.4020 #### [facility] [address] [place], [address] Platelets (Bld) [#/Vol] 304 10*3/uL Normal 150-450 [facility] Comment on above: Performed By: #### L 300.8000, L500.2500, L100.0100, L501.5200, L501.4020 #### [facility] [address] [place], [address] RBC (Bld) [#/Vol] 5.15 10*6/uL Normal 4.2-5.4 [facility] Comment on above: Performed By: #### L 300.8000, L500.2500, L100.0100, L501.5200, L501.4020 #### [facility] [address] [place], [address] RDW SD 39.3 fl Normal 35.1-43.9 [facility] Comment on above: Performed By: #### L 300.8000, L500.2500, L100.0100, L501.5200, L501.4020 #### [facility] [address] [place], [address] WBC (Bld) [#/Vol] 11.5 10*3/uL High 4.4-11.0 [facility] Comment on above: Performed By: #### L 300.8000, L500.2500, L100.0100, L501.5200, L501.4020 #### [facility] [address] [place], [address] Chest 1 View (Portable)on Chest 1 View (Portable) [facility] Imaging Services [address] [address] Chest 1 View (Portable) MR#: [id number] Acct: [id number] Name: LIAM BURR Rep #: [id number] : 1960 F 63 From: Jesus Manuel Reid DO PCP: Dr. Vlad Fitzpatrick MD Status: [facility] ER Study: Chest 1 View (Portable) Date of Exam: 07/08/24 Exam# [id number] Ordering Dr: Siddharth Wilkes COMPUTER SPECIALIST-C [id number] INDICATION: chest pain EXAMINATION/TECHNIQUE: X-RAY - XR [...] CC: TULIO Wilkes; Dr. Vlad Fitzpatrick MD Licensed Dispensing Optician: Signed Normal [facility] D-Dimer Quantitative (DVT/PE )on 07-08-2024 D-DIMER QUANT 0.45 FEU/ug/m Normal 0.27-0.49 [facility] Comment on above: Result Comment: NORM AL D-Dimer level (<0.50) indicates no DVT or PE. Performed By: #### L 300.8000, L500.2500, L100.0100, L501.5200, L501.4020 #### [facility] [address], [address] Emergency Department Summary on 07-08-2024 Emergency Department Summary [facility] Medical Records Department [address] [place] [address] Emergency Department Summary 07/08/24 MR#: [id number] Acct: [id number] Name: LIAM BURR Rep #: [id number] : 1960 63 From: Siddharth ANTUNEZ PCP: [...] feels that her heart is beating rapidly. 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 Normal [facility] L501.4020on 07-08-2024 TROPONIN-I HS 4 pg/mL Normal 3.0-54.0 [facility] Comment on above: Order Comment: 'TROP ' Serial specimen #1, #2 or #3: 1 Result Comment: Plea se Note: New Test Units and Gender Specific Reference Ranges. For more information see Policy Stat Procedure [place] High Sensitivity Troponin (TNIH) and attachments. Performed By: #### L 300.8000, L500.2500, L100.0100, L501.5200, L501.4020 #### [facility] [address], [address] Thyroid Stim Hormone (TSH)on 07-08-2024 TSH 1.090 uIU/mL Normal 0.358-3.740 [facility] Comment on above: Order Comment: 'TROP ' Serial specimen #1, #2 or #3: 1 Performed By: #### L 300.8000, L500.2500, L100.0100, L501.5200, L501.4020 #### [facility] [address] [place], [address] PAP IG HPV APTIMA 16/18,45on 06-06-2024 ADEQ Comment Normal . [facility] Comment on above: Order Comment: Speci men Comment: [id number] Comment: Source.............CervixSpecimen Comment: Other..............Post MenopausalSpecimen Comment: No. of containers..01 ThinPrep Vial Result Comment: Sati sfactory for evaluation. Endocervical and/or squamous metaplastic cells (endocervical component) are present. Performed By: #### L 300.8000, L500.2500, L100.0100, L501.5200, L501.4020 #### [facility] [address] [place], [address] COMM . Normal . [facility] Comment on above: Order Comment: Speci men Comment: [id number] Comment: Source.............CervixSpecimen Comment: Other..............Post MenopausalSpecimen Comment: No. of containers..01 ThinPrep Vial Performed By: #### L 300.8000, L500.2500, L100.0100, L501.5200, L501.4020 #### [facility] [address] [place], [address] COMMENT Comment Normal . [facility] Comment on above: Order Comment: Speci men Comment: [id number] Comment: Source.............CervixSpecimen Comment: Other..............Post MenopausalSpecimen Comment: No. of containers..01 ThinPrep Vial Result Comment: This liquid based ThinPrep(R) pap test was screened with the use of an image guided system. Performed By: #### L 300.8000, L500.2500, L100.0100, L501.5200, L501.4020 #### [facility] [address], [place], [address] DIAG Comment Normal . [facility] Comment on above: Order Comment: Speci men Comment: [id number] Comment: Source.............CervixSpecimen Comment: Other..............Post MenopausalSpecimen Comment: No. of containers..01 ThinPrep Vial Result Comment: NEGA TIVE FOR INTRAEPITHELIAL LESION OR MALIGNANCY. Performed By: #### L 300.8000, L500.2500, L100.0100, L501.5200, L501.4020 #### [facility] [address], [place], [address] HPV APTIMA, HR Negative Normal Negative [facility] Comment on above: Order Comment: Speci men Comment: [id number] Comment: Source.............CervixSpecimen Comment: Other..............Post MenopausalSpecimen Comment: No. of containers..01 ThinPrep Vial Result Comment: This nucleic acid amplification test detects fourteen high- risk HPV types (16,18,31,33,35,39,45,51,52,56,58,59,66,68) without differentiation. Performed By: #### L 300.8000, L500.2500, L100.0100, L501.5200, L501.4020 #### [facility] [address] [place], [address] HPV Shila Rfx Comment Normal . [facility] Comment on above: Order Comment: Speci men Comment: [id number] Comment: Source.............CervixSpecimen Comment: Other..............Post MenopausalSpecimen Comment: No. of containers..01 ThinPrep Vial Result Comment: Crit eralex not met, HPV Genotype not performed. Performed at: - [facility] [id number] Manager Environmental Services: Moriah Shaikh MD, Phone: [phone] Performed at: = - [facility] [address] [id number] Manager Environmental Services: Moriah Shaikh MD, Phone: [phone] Performed By: #### L 300.8000, L500.2500, L100.0100, L501.5200, L501.4020 #### [facility] [address] [place], [address] PAPSMR Comment Normal . [facility] Comment on above: Order Comment: Speci men Comment: [id number] Comment: Source.............CervixSpecimen Comment: Other..............Post MenopausalSpecimen Comment: No. [...] L 300.8000, L500.2500, L100.0100, L501.5200, L501.4020 #### [facility] [address] [place], [address] PERFORM Comment Normal . [facility] Comment on above: Order Comment: Speci men Comment: [id number] Comment: Source.............CervixSpecimen Comment: Other..............Post MenopausalSpecimen Comment: No. of containers..01 ThinPrep Vial Result Comment: Jack Khoury, Golf Sales Associate (ASCP) Performed By: #### L 300.8000, L500.2500, L100.0100, L501.5200, L501.4020 #### [facility] [address] 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 Normal [facility] Stress Reporton 03-30-2024 Stress Report [facility] Cardiovascular Services [address] [place] [address] MR#: [id number] Acct: [id number] Name: LIAM BURR Rep #: [id number] : 1960 63 From: Nitin Whitaker MD [...] Date Dictated: 03/30/24 122 Date Transcribed: 03/30/241220 Licensed Dispensing Optician: [place] Signed Normal [facility] 12 Lead EKGon 03-29-2024 12 Lead EKG [facility] Cardiovascular Services [address] [place] [address] 12 Lead EKG 03/29/24 0652 MR#: [id number] Acct: [id number] Name: LIAM BURR Rep #: [id number] : 1960 63 From: Nitin Whitaker MD [...] Abnormal ECG Confirmed by NITIN WHITAKER MD ([id number]), online editor TINA RIVERA ([id number]) on 03/30/2024 9:29:14 AM Referred By: TRELL Confirmed By:NITIN WHITAKER MD 03/30/24 0929 Date Nitin Whitaker MD CC: Dr. Vlad Fitzpatrick MD; Titus Kumar DO Signed Normal [facility] Basic Metabolic Profile (BMP )on 03-29-2024 BUN/CRE 13.3 RATIO Normal 10-20 [facility] Comment on above: Order Comment: 'TROP ' Serial specimen #1, #2 or #3: 1 Performed By: #### L 300.8000, L500.2500, L100.0100, L501.5200, L501.4020 #### [facility] [address] [place], [address] CA,Total 9.3 mg/dL Normal 8.5-10.1 [facility] Comment on above: Order Comment: 'TROP ' Serial specimen #1, #2 or #3: 1 Performed By: #### L 300.8000, L500.2500, L100.0100, L501.5200, L501.4020 #### [facility] [address] [place], [address] Chloride [Moles/Vol] 106 mmol/L Normal 98-107 [facility] Comment on above: Order Comment: 'TROP ' Serial specimen #1, #2 or #3: 1 Performed By: #### L 300.8000, L500.2500, L100.0100, L501.5200, L501.4020 #### [facility] [address] [place], [address] CO2 [Moles/Vol] 25.0 mmol/L Normal 21.0-32.0 [facility] Comment on above: Order Comment: 'TROP ' Serial specimen #1, #2 or #3: 1 Performed By: #### L 300.8000, L500.2500, L100.0100, L501.5200, L501.4020 #### [facility] [address] [place], [address] Creatinine [Mass/Vol] 0.68 mg/dL Normal 0.55-1.02 [facility] Comment on above: Order Comment: 'TROP ' Serial specimen #1, #2 or #3: 1 Result Comment: The validity of the calculated GFR GFRAA in patients over 70 years has not been determined. Clinical correlation is essential. Performed By: #### L 300.8000, L500.2500, L100.0100, L501.5200, L501.4020 #### [facility] [address] [place], [address] ECRCL 66.34 ml/min Normal [facility] Comment on above: Order Comment: 'TROP ' Serial specimen #1, #2 or #3: 1 Performed By: #### L 300.8000, L500.2500, L100.0100, L501.5200, L501.4020 #### [facility] [address] [place], [address] EST GFR - AA 112 mL/min Normal >60 [facility] Comment on above: Order Comment: 'TROP ' Serial specimen #1, #2 or #3: 1 Result Comment: Afri can Congolese GFR Calc Performed By: #### L 300.8000, L500.2500, L100.0100, L501.5200, L501.4020 #### [facility] [address] [place], [address] GAP 7 Normal 5-15 [facility] Comment on above: Order Comment: 'TROP ' Serial specimen #1, #2 or #3: 1 Performed By: #### L 300.8000, L500.2500, L100.0100, L501.5200, L501.4020 #### [facility] [address] [place], [address] GFR/1.73 sq M.predicted among non-blacks MDRD (S/P/Bld) [Vol rate/Area] 93 mL/min/{1.73_m2} Normal >60 [facility] Comment on above: Order Comment: 'TROP ' Serial specimen #1, #2 or #3: 1 Result Comment: Non- GFR Calc Performed By: #### L 300.8000, L500.2500, L100.0100, L501.5200, L501.4020 #### [facility] [address] [place], [address] Glucose [Mass/Vol] 124 mg/dL High 74-106 [facility] Comment on above: Order Comment: 'TROP ' Serial specimen #1, #2 or #3: 1 Result Comment: Fast ing Glucose result from 100 to 125 mg/dL suggests IMPAIRED HOMEOSTASIS per A.D.A. criteria. Performed By: #### L 300.8000, L500.2500, L100.0100, L501.5200, L501.4020 #### [facility] [address] [place], [address] Potassium [Moles/Vol] 3.5 mmol/L Normal 3.5-5.1 [facility] Comment on above: Order Comment: 'TROP ' Serial specimen #1, #2 or #3: 1 Performed By: #### L 300.8000, L500.2500, L100.0100, L501.5200, L501.4020 #### [facility] [address] [place], [address] Sodium [Moles/Vol] 138 mmol/L Normal 136-145 [facility] Comment on above: Order Comment: 'TROP ' Serial specimen #1, #2 or #3: 1 Performed By: #### L 300.8000, L500.2500, L100.0100, L501.5200, L501.4020 #### [facility] [address] [place], [address] Urea nitrogen [Mass/Vol] 9 mg/dL Normal 7-18 [facility] Comment on above: Order Comment: 'TROP ' Serial specimen #1, #2 or #3: 1 Performed By: #### L 300.8000, L500.2500, L100.0100, L501.5200, L501.4020 #### [facility] [address] [place], [address] CBC W/Diff, Automatedon 07- Absolute Lymph 3.60 X10 3/uL Normal 0.83-4.51 [facility] Comment on above: Performed By: #### L 300.8000, L500.2500, L100.0100, L501.5200, L501.4020 #### [facility] [address] [place], [address] Absolute Neut 5.2 X10 3/uL Normal 2.0-7.7 [facility] Comment on above: Performed By: #### L 300.8000, L500.2500, L100.0100, L501.5200, L501.4020 #### [facility] [address] [place], [address] Basophils/100 WBC (Bld) 0.5 % Normal 0-1 [facility] Comment on above: Performed By: #### L 300.8000, L500.2500, L100.0100, L501.5200, L501.4020 #### [facility] [address] [place], [address] Eosinophils/100 WBC (Bld) 1.2 % Normal 0-5 [facility] Comment on above: Performed By: #### L 300.8000, L500.2500, L100.0100, L501.5200, L501.4020 #### [facility] [address] [place], [address] Erythrocyte distribution width (RBC) [Ratio] 12.7 % Normal 11.6-14.6 [facility] Comment on above: Performed By: #### L 300.8000, L500.2500, L100.0100, L501.5200, L501.4020 #### [facility] [address] [place], [address] Hematocrit (Bld) [Volume fraction] 43.8 % Normal 37-47 [facility] Comment on above: Performed By: #### L 300.8000, L500.2500, L100.0100, L501.5200, L501.4020 #### [facility] [address] [place], [address] Hemoglobin (Bld) [Mass/Vol] 14.9 g/dL Normal 12.0-15.0 [facility] Comment on above: Performed By: #### L 300.8000, L500.2500, L100.0100, L501.5200, L501.4020 #### [facility] [address] [place], [address] IG% 0.300 Normal 0.0-0.9 [facility] Comment on above: Result Comment: IG% - Immature Granulocytes (promyelocytes, myelocytes and metamyelocytes) > 1% indicates that a LEFT SHIFT is Present. Performed By: #### L 300.8000, L500.2500, L100.0100, L501.5200, L501.4020 #### [facility] [address] [place], [address] Lymphocytes/100 WBC (Bld) 36.2 % Normal 19-41 [facility] Comment on above: Performed By: #### L 300.8000, L500.2500, L100.0100, L501.5200, L501.4020 #### [facility] [address] [place], [address] MCH (RBC) [Entitic mass] 29.7 pg Normal 27.0-32.0 [facility] Comment on above: Performed By: #### L 300.8000, L500.2500, L100.0100, L501.5200, L501.4020 #### [facility] [address] [place], [address] MCHC (RBC) [Mass/Vol] 34.0 g/dL Normal 32-36 [facility] Comment on above: Performed By: #### L 300.8000, L500.2500, L100.0100, L501.5200, L501.4020 #### [facility] [address] [place], [address] MCV (RBC) [Entitic vol] 87.3 fL Normal 81-99 [facility] Comment on above: Performed By: #### L 300.8000, L500.2500, L100.0100, L501.5200, L501.4020 #### [facility] [address] [place], [address] Monocytes/100 WBC (Bld) 9.4 % Normal 0-10 [facility] Comment on above: Performed By: #### L 300.8000, L500.2500, L100.0100, L501.5200, L501.4020 #### [facility] [address] [place], [address] Neutrophils/100 WBC (Bld) 52.4 % Normal 47-70 [facility] Comment on above: Performed By: #### L 300.8000, L500.2500, L100.0100, L501.5200, L501.4020 #### [facility] [address] [place], [address] Nucleated RBC (Bld) [#/Vol] 0 10*3/uL Normal 0-5 [facility] Comment on above: Performed By: #### L 300.8000, L500.2500, L100.0100, L501.5200, L501.4020 #### [facility] [address] [place], [address] Platelet mean volume (Bld) [Entitic vol] 9.7 fL Normal 6.2-12.0 [facility] Comment on above: Performed By: #### L 300.8000, L500.2500, L100.0100, L501.5200, L501.4020 #### [facility] [address] [place], [address] Platelets (Bld) [#/Vol] 269 10*3/uL Normal 150-450 [facility] Comment on above: Performed By: #### L 300.8000, L500.2500, L100.0100, L501.5200, L501.4020 #### [facility] [address] [place], [address] RBC (Bld) [#/Vol] 5.02 10*6/uL Normal 4.2-5.4 [facility] Comment on above: Performed By: #### L 300.8000, L500.2500, L100.0100, L501.5200, L501.4020 #### [facility] [address] [place], [address] RDW SD 40.1 fl Normal 35.1-43.9 [facility] Comment on above: Performed By: #### L 300.8000, L500.2500, L100.0100, L501.5200, L501.4020 #### [facility] [address] [place], [address] WBC (Bld) [#/Vol] 10.0 10*3/uL Normal 4.4-11.0 [facility] Comment on above: Performed By: #### L 300.8000, L500.2500, L100.0100, L501.5200, L501.4020 #### [facility] [address] [place], [address] Chest PA and Lateralon 03-29 Chest PA and Lateral [facility] Imaging Services [address] [place] [address] Chest PA and Lateral MR#: [id number] Acct: [id number] Name: LIAM BURR Rep #: [id number] : 1960 F 63 From: Faraz pantoja MD PCP: Dr. Vlad Fitzpatrick MD Status: DEP ER Study: Chest PA and Lateral Date of Exam: 03/29/24 Exam# [id number] Ordering Dr: Titus Kumar DO [id number] STUDY: X-RAY CHEST REASON FOR EXAM: Female, [...] MD at 7:34 EDT , CC: Dr. Vlad Fitzpatrick MD; Titus Kumar DO Licensed Dispensing Optician: Signed Normal [facility] D-Dimer Quantitative (DVT/PE )on 03-29-2024 D-DIMER QUANT 0.33 FEU/ug/m Normal 0.27-0.49 [facility] Comment on above: Result Comment: NORM AL D-Dimer level (<0.50) indicates no DVT or PE. Performed By: #### L 300.8000, L500.2500, L100.0100, L501.5200, L501.4020 #### [facility] [address] [place], [address] Emergency Department Summary on 03-29-2024 Emergency Department Summary [facility] Medical Records Department [address] [place] [address] Emergency Department Summary 03/29/24 MR#: [id number] Acct: [id number] Name: LIAM BURR Rep #: [id number] : 1960 63 From: Titus Kumar DO [...] surgery hormone use or history of DVT/PE. [facility] Medical History Wears glasses Thyroid disease Injury [...] nondistended, normoactive (more content not included)... Normal [facility] L501.4020on 03-29-2024 TROPONIN-I HS 5 pg/mL Normal 3.0-54.0 [facility] Comment on above: Order Comment: 'TROP ' Serial specimen #1, #2 or #3: 2 Result Comment: Plea se Note: New Test Units and Gender Specific Reference Ranges. For more information see Policy Stat Procedure [place] High Sensitivity Troponin (TNIH) and attachments. Performed By: #### L 300.8000, L500.2500, L100.0100, L501.5200, L501.4020 #### [facility] [address], [place], [address] TROPONIN-I HS 5 pg/mL Normal 3.0-54.0 [facility] Comment on above: Order Comment: 'TROP ' Serial specimen #1, #2 or #3: 1 Result Comment: Plea se Note: New Test Units and Gender Specific Reference Ranges. For more information see Policy Stat Procedure [place] High Sensitivity Troponin (TNIH) and attachments. Performed By: #### L 300.8000, L500.2500, L100.0100, L501.5200, L501.4020 #### [facility] [address] [place], [address] Magnesiumon 03-29-2024 Magnesium [Mass/Vol] 2.2 mg/dL Normal 1.6-2.6 [facility] Comment on above: Order Comment: 'TROP ' Serial specimen #1, #2 or #3: 1 Performed By: #### L 300.8000, L500.2500, L100.0100, L501.5200, L501.4020 #### [facility] [address], [place], [address] Absolute lymphocyte countOrd ered By: Vlad Fitzpatrick on 03-22-2023 Lymphocytes Auto (Unsp spec) [#/Vol] 2.52 10*3/uL 0.83-4.51 [facility] Basophil percentageOrdered B y: Vlad Fitzpatrick on 03-22-2023 Basophil percentage 0 SEEN /hpf 0-5 [facility] Basophils/100 WBC (Bld) 0.5 % 0-1 [facility] Bilirubin [Mass/Vol] 0.50 mg/dL 0.20-1.00 [facility] Comment on above: For patients on eltr ombopag therapy, use of Dimension [place] TBIL is not recommended. Chloride [Moles/Vol] 106 mmol/L 98-107 [facility] Eosinophils/100 WBC (Bld) 1.2 % 0-5 [facility] Glucose [Mass/Vol] 98 mg/dL 74-106 [facility] Neutrophils (Bld) [#/Vol] 4.2 10*3/uL 2.0-7.7 [facility] Neutrophils/100 WBC (Bld) 55.2 % 47-70 [facility] Potassium [Moles/Vol] 4.0 mmol/L 3.5-5.1 [facility] Protein [Mass/Vol] 7.5 g/dL 6.4-8.2 [facility] Sodium [Moles/Vol] 137 mmol/L 136-145 [facility] WBC (Bld) [#/Vol] 7.6 10*3/uL 4.4-11.0 [facility] Bilirubin Test strip Ql (U)O rdered By: Vlad Fitzpatrick on 03-22-2023 Bilirubin Ql (U) Negative Negative [facility] Blood erythrocytes count (nu mber/volume)Ordered By: Vlad Fitzpatrick on 03-22-2023 RBC (Bld) [#/Vol] 5.03 10*6/uL 4.2-5.4 [facility] Blood hemoglobin measurement (mass/volume)Ordered By: Vlad Fitzpatrick on 03-22-2023 Hemoglobin (Bld) [Mass/Vol] 14.8 g/dL 12.0-15.0 [facility] Blood lymphocytes/100 leukoc ytesOrdered By: Vlad Fitzpatrick on 03-22-2023 Lymphocytes/100 WBC (Bld) 33.4 % 19-41 [facility] Blood monocytes/100 leukocyt esOrdered By: Vlad Fitzpatrick on 03-22-2023 Monocytes/100 WBC (Bld) 9.4 % 0-10 [facility] Blood platelet mean volumeOr dered By: Vlad Fitzpatrick on 03-22-2023 Platelet mean volume (Bld) [Entitic vol] 10.0 fL 6.2-12.0 [facility] Determination of erythrocyte mean corpuscular volume (MCV)Ordered By: Vlad Fitzpatrick on 03-22-2023 MCV (RBC) [Entitic vol] 90.3 fL 81-99 [facility] Hematocrit Auto (Bld) [Volum e fraction]Ordered By: Vlad Fitzpatrick on 03-22-2023 Hematocrit (Bld) [Volume fraction] 45.4 % 37-47 [facility] Ketones Test strip Ql (U)Ord ered By: Vlad Fitzpatrick on 03-22-2023 Ketones Ql (U) Negative Negative [facility] Laboratory - Chemistry and C hemistry - challengeOrdered By: Vlad Fitzpatrick on 03-22-2023 ALP [Catalytic activity/Vol] 81 U/L 45-117 [facility] ALT [Catalytic activity/Vol] 22 U/L 13-56 [facility] CO2 [Moles/Vol] 29.0 mmol/L 21.0-32.0 [facility] Globulin (S) [Mass/Vol] 3.9 g/dL 2.2-4.2 [facility] Urea nitrogen/Creatinine [Mass ratio] 14.5 mg/mg 10-20 [facility] Laboratory - Hematology and Cell countsOrdered By: Vlad Fitzpatirck on 03-22-2023 Erythrocyte distribution width (RBC) [Entitic vol] 40.5 fL 35.1-43.9 [facility] Erythrocyte distribution width (RBC) [Ratio] 12.3 % 11.6-14.6 [facility] Immature granulocytes/100 WBC (Bld) 0.300 % 0.0-0.9 [facility] Comment on above: IG% - Immature Granu locytes (promyelocytes, myelocytes and metamyelocytes) > 1% indicates that a LEFT SHIFT is Present. MCH (RBC) [Entitic mass] 29.4 pg 27.0-32.0 [facility] Nucleated RBC/100 WBC (Bld) [Ratio] 0 % 0-5 [facility] MCHC Auto (RBC) [Mass/Vol]Or dered By: Vlad Fitzpatrick on 03-22-2023 MCHC (RBC) [Mass/Vol] 32.6 g/dL 32-36 [facility] Mucus LM Ql (Urine sed)Order ed By: Vlad Fitzpatrick on 03-22-2023 Mucus Ql (Urine sed) 0 SEEN /hpf [facility] Nitrite Test strip Ql (U)Ord ered By: Vlad Fitzpatrick on 03-22-2023 Nitrite Ql (U) Negative Negative [facility] No Panel InformationOrdered By: Vlad Fitzpatrick on 03-22-2023 Estimated GFR (MDRD) Amer 110 mL/min >60 [facility] Comment on above: GFR Calc Estimated GFR (MDRD) Non-Af Amer 91 mL/min >60 [facility] Comment on above: Non- GFR Calc Vitamin D 25-Hydroxy 50.2 ng/mL [facility] Comment on above: Vitamin D 25(OH) Sta tus Range Deficiency <20 ng/mL (50nmol/L) Insufficiency 20 - 30 ng/mL (50 - 75 nmol/L) Sufficiency 30 - 100 ng/mL (75 - 250 nmol/L) Toxicity >100 ng/mL (>250 nmol/L) Platelets bldOrdered By: Richmond Fitzpatrick on 03-22-2023 Platelets (Bld) [#/Vol] 268 10*3/uL 150-450 [facility] Protein Test strip Ql (U)Ord ered By: Vlad Fitzpatrick on 03-22-2023 Protein Ql (U) Negative Negative [facility] Serum or plasma albumin tram urement (mass/volume)Ordered By: Vlad Fitzpatrick on 03-22-2023 Albumin [Mass/Vol] 3.6 g/dL 3.2-5.0 [facility] Serum or plasma albumin/glob ulin mass ratioOrdered By: Vlad Fitzpatrick on 03-22-2023 Albumin/Globulin [Mass ratio] 0.9 {ratio} 0.9-2.4 [facility] Serum or plasma calcium tram urement (mass/volume)Ordered By: Vlad Fitzpatrick on 03-22-2023 Calcium [Mass/Vol] 9.4 mg/dL 8.5-10.1 [facility] Serum or plasma creatinine m easurement (mass/volume)Ordered By: Vlad Fitzpatrick on 03-22-2023 Creatinine [Mass/Vol] 0.69 mg/dL 0.55-1.02 [facility] Comment on above: The validity of the calculated GFR & GFRAA in patients over 70 years has not been determined. Clinical correlation is essential. Serum or plasma urea nitroge n measurement (mass/volume)Ordered By: Vlad Fitzpatrick on 03-22-2023 Urea nitrogen [Mass/Vol] 10 mg/dL 7-18 [facility] Squamous epithelial cells de tection in urine sediment by light microscopyOrdered By: Vlad Fitzpatrick on 03-22-2023 Epithelial cells.squamous LM Ql (Urine sed) 0-5 SEEN /hpf 5-10 [facility] Thin prep Papanicolaou smear with manual screeningOrdered By: Vlad Fitzpatrick on 03-22-2023 Thin prep Papanicolaou smear with manual screening 19 U/L 15-37 [facility] Thin prep Papanicolaou smear with manual screening 2 5-15 [facility] Urine blood detectionOrdered By: Vlad Fitzpatrick on 03-22-2023 RBC Ql (U) Negative Negative [facility] RBC Ql (U) 0 SEEN /hpf 0-5 [facility] Urine clarityOrdered By: Richmond Fitzpatrick on 03-22-2023 Clarity (U) Clear Clear [facility] Urine color determinationOrd ered By: Vlad Fitzpatrick on 03-22-2023 Color (U) Yellow Yellow [facility] Urine glucose detectionOrder ed By: Vlad Fitzpatrick on 03-22-2023 Glucose Ql (U) Normal mg/dl Normal [facility] Urine leukocyte esterase det ection by dipstickOrdered By: Vlad Fitzpatrick on 03-22-2023 Leukocyte esterase Test strip Ql (U) 25 /ul Negative [facility] Urine pHOrdered By: Vlad melara on 03-22-2023 pH (U) 6.5 [pH] 5.0 - 8.0 [facility] Urine sediment bacteria coun t by microscopy (number/high power field)Ordered By: Vlad Fitzpatrick on 03-22-2023 Bacteria LM.HPF (Urine sed) [#/Area] 0 /[HPF] None Seen [facility] Urine specific gravity measu rementOrdered By: Vlad Fitzpatrick on 03-22-2023 Specific gravity (U) [Rel density] 1.010 1.002-1.030 [facility] Urobilinogen Auto test strip Ql (U)Ordered By: Vlad Fitzpatrick on 03-22-2023 Urobilinogen Ql (U) Normal mg/dl Normal [facility] Whole blood hemoglobin A1c/t otal hemoglobin ratio (mass fraction)Ordered By: Vlad Fitzpatrick on 03-22-2023 HbA1c (Bld) [Mass fraction] 5.9 % 3.8-5.6 [facility] Comment on above: Normal < 5.7 % Predi abetic 5.7 - 6.4 % Diabetic >or= 6.5 % Please note range changes. Absolute lymphocyte counton 09-11-2021 Lymphocytes Auto (Unsp spec) [#/Vol] 2.36 10*3/uL 0.83-4.51 [facility] Work Phone: Basophil percentageon 2020 Basophil percentage 0 SEEN /hpf [facility] Work Phone: Bilirubin [Mass/Vol] 0.50 mg/dL 0.20-1.00 [facility] Work Phone: Comment on above: For patients on eltr ombopag therapy, use of Dimension [place] TBIL is not recommended. Chloride [Moles/Vol] 104 mmol/L 98-107 [facility] Work Phone: Cholesterol [Mass/Vol] 198 mg/dL <200 [facility] Work Phone: Comment on above: <200 mg/dL Desirable 200-240 mg/dL Borderline >240 mg/dL High Risk Eosinophils/100 WBC (Bld) 1.5 % 0-5 [facility] Work Phone: Glucose [Mass/Vol] 103 mg/dL 74-106 [facility] Work Phone: Comment on above: Fasting Glucose resu lt from 100 to 125 mg/dL suggests IMPAIRED HOMEOSTASIS per A.D.A. criteria.Please note revised GLUCOSE reference range effective 2017. Neutrophils (Bld) [#/Vol] 3.9 10*3/uL 2.0-7.7 [facility] Work Phone: Potassium [Moles/Vol] 3.9 mmol/L 3.5-5.1 [facility] Work Phone: Protein [Mass/Vol] 7.4 g/dL 6.4-8.2 [facility] Work Phone: Sodium [Moles/Vol] 139 mmol/L 136-145 [facility] Work Phone: Triglyceride [Mass/Vol] 176 mg/dL [facility] Work Phone: Comment on above: The drugs N-Acetylcy steine and Metamizole may falsely depress this assay.Serum Triglycerides Reference Interval Normal <150 mg/dL Borderline high 150 - 199 mg/dL High 200 - 499 mg/dL Very High > or = 500 mg/dL WBC (Bld) [#/Vol] 7.3 10*3/uL 4.4-11.0 [facility] Work Phone: Bilirubin Test strip Ql (U)o n 09-11-2021 Bilirubin Ql (U) Negative Negative [facility] Work Phone: Blood erythrocytes count (nu mber/volume)on 09-11-2021 RBC (Bld) [#/Vol] 4.93 10*6/uL 4.2-5.4 [facility] Work Phone: Blood hemoglobin measurement (mass/volume)on 09-11-2021 Hemoglobin (Bld) [Mass/Vol] 14.7 g/dL 12.0-15.0 [facility] Work Phone: Blood lymphocytes/100 leukoc yteson 09-11-2021 Lymphocytes/100 WBC (Bld) 32.4 % 19-41 [facility] Work Phone: [phone] Blood monocytes/100 leukocyt eson 09-11-2021 Monocytes/100 WBC (Bld) 11.0 % 0-10 [facility] Work Phone: [phone] Blood platelet mean volumeon 09-11-2021 Platelet mean volume (Bld) [Entitic vol] 10.0 fL 6.2-12.0 [facility] Work Phone: [phone] Determination of erythrocyte mean corpuscular volume (MCV)on 09-11-2021 MCV (RBC) [Entitic vol] 89.0 fL 81-99 [facility] Work Phone: Hematocrit Auto (Bld) [Volum e fraction]on 09-11-2021 Hematocrit (Bld) [Volume fraction] 43.9 % 37-47 [facility] Work Phone: Ketones Test strip Ql (U)on 09-11-2021 Ketones Ql (U) Negative Negative [facility] Work Phone: Laboratory - Chemistry and C hemistry - challengeon 09-11-2021 ALP [Catalytic activity/Vol] 79 U/L 45-117 [facility] Work Phone: [phone] ALT [Catalytic activity/Vol] 26 U/L 13-56 [facility] Work Phone: [phone] CO2 [Moles/Vol] 28.0 mmol/L 21.0-32.0 [facility] Work Phone: [phone] Globulin (S) [Mass/Vol] 3.8 g/dL 2.2-4.2 [facility] Work Phone: [phone] Urea nitrogen/Creatinine [Mass ratio] 15.0 mg/mg 10-20 [facility] Work Phone: Laboratory - Hematology and Cell countson 09-11-2021 Basophils/100 WBC (Unsp spec) 0.8 % 0-1 [facility] Work Phone: [phone] Erythrocyte distribution width (RBC) [Entitic vol] 40.8 fL 35.1-43.9 [facility] Work Phone: [phone] Erythrocyte distribution width (RBC) [Ratio] 12.4 % 11.6-14.6 [facility] Work Phone: [phone] Immature granulocytes/100 WBC (Bld) 0.300 % 0.0-0.9 [facility] Work Phone: [phone] Comment on above: IG% - Immature Granu locytes (promyelocytes, myelocytes and metamyelocytes) > 1% indicates that a LEFT SHIFT is Present. MCH (RBC) [Entitic mass] 29.8 pg 27.0-32.0 [facility] Work Phone: [phone] Neutrophils/100 WBC (Bld) 54.0 % 47-70 [facility] Work Phone: [phone] Nucleated RBC/100 WBC (Bld) [Ratio] 0 % 0-5 [facility] Work Phone: [phone] MCHC Auto (RBC) [Mass/Vol]on 09-11-2021 MCHC (RBC) [Mass/Vol] 33.5 g/dL 32-36 [facility] Work Phone: [phone] Mucus LM Ql (Urine sed)on Mucus Ql (Urine sed) 0 SEEN /hpf [facility] Work Phone: [phone] Nitrite Test strip Ql (U)on 09-11-2021 Nitrite Ql (U) Negative Negative [facility] Work Phone: [phone] Panel Informationon 09-11 Estimated GFR (MDRD) Amer 115 mL/min >60 [facility] Work Phone: [phone] Comment on above: GFR Calc Estimated GFR (MDRD) Non-Af Amer 95 mL/min >60 [facility] Work Phone: [phone] Comment on above: Non- GFR Calc Thyroid Stimulating Hormone (TSH) 2.05 uIU/mL 0.358-3.74 [facility] Work Phone: Platelets bldon 09-11-2021 Platelets (Bld) [#/Vol] 271 10*3/uL 150-450 [facility] Work Phone: Protein Test strip Ql (U)on 09-11-2021 Protein Ql (U) Negative Negative [facility] Work Phone: [phone] Serum or plasma albumin tram urement (mass/volume)on 09-11-2021 Albumin [Mass/Vol] 3.6 g/dL 3.2-5.0 [facility] Work Phone: [phone] Serum or plasma albumin/glob ulin mass ratioon 09-11-2021 Albumin/Globulin [Mass ratio] 0.9 {ratio} 0.9-2.4 [facility] Work Phone: Serum or plasma calcium tram urement (mass/volume)on 09-11-2021 Calcium [Mass/Vol] 9.0 mg/dL 8.5-10.1 [facility] Work Phone: [phone] Serum or plasma cholesterol in HDL measurement (mass/volume)on 09-11-2021 Cholesterol in HDL [Mass/Vol] 44 mg/dL [facility] Work Phone: Comment on above: The drugs N-Acetylcy steine and Metamizole may falsely depress this assay. Reference Range HDL <40 mg/dL Low HDL Cholesterol HDL >or= 60 mg/dL High HDL Cholesterol Serum or plasma cholesterol in VLDL measurement (mass/volume)on 09-11-2021 Cholesterol in VLDL [Mass/Vol] 35 mg/dL 5-40 [facility] Work Phone: [phone] Serum or plasma creatinine m easurement (mass/volume)on 09-11-2021 Creatinine [Mass/Vol] 0.66 mg/dL 0.55-1.02 [facility] Work Phone: Comment on above: The validity of the calculated GFR & GFRAA in patients over 70 years has not been determined. Clinical correlation is essential. Serum or plasma low density lipoprotein (LDL) cholesterol measurement (mass/volume)on 09-11-2021 Cholesterol in LDL [Mass/Vol] 119 mg/dL 0-130 [facility] Work Phone: Serum or plasma urea nitroge n measurement (mass/volume)on 09-11-2021 Urea nitrogen [Mass/Vol] 10 mg/dL 7-18 [facility] Work Phone: Squamous epithelial cells de tection in urine sediment by light microscopyon 09-11-2021 Epithelial cells.squamous LM Ql (Urine sed) 0 SEEN /hpf [facility] Work Phone: Thin prep Papanicolaou smear with manual screeningon 09-11-2021 Thin prep Papanicolaou smear with manual screening 17 U/L 15-37 [facility] Work Phone: Thin prep Papanicolaou smear with manual screening 7 5-15 [facility] Work Phone: Urine blood detectionon 08-15 0 RBC Ql (U) Negative Negative [facility] Work Phone: RBC Ql (U) 0 SEEN /hpf [facility] Work Phone: Urine clarityon 09-11-2021 Clarity (U) Clear Clear [facility] Work Phone: Urine color determinationon 09-11-2021 Color (U) Straw Yellow [facility] Work Phone: Urine glucose detectionon Glucose Ql (U) Normal mg/dl Normal [facility] Work Phone: Urine leukocyte esterase det ection by dipstickon 09-11-2021 Leukocyte esterase Test strip Ql (U) Negative Negative [facility] Work Phone: [phone] Urine pHon 09-11-2021 pH (U) 6.5 [pH] [facility] Work Phone: [phone] Urine sediment bacteria coun t by microscopy (number/high power field)on 09-11-2021 Bacteria LM.HPF (Urine sed) [#/Area] 0 /[HPF] None Seen [facility] Work Phone: Urine specific gravity measu rementon 09-11-2021 Specific gravity (U) [Rel density] 1.010 [facility] Work Phone: Urobilinogen Auto test strip Ql (U)on 09-11-2021 Urobilinogen Ql (U) Normal mg/dl Normal [facility] Work Phone: Whole blood hemoglobin A1c/t otal hemoglobin ratio (mass fraction)on 09-11-2021 HbA1c (Bld) [Mass fraction] 5.6 % 3.8-5.6 [facility] Work Phone: Comment on above: Normal < 5.7 % Predi abetic 5.7 - 6.4 % Diabetic >or= 6.5 % Please note range changes. Vital Signs Date Time Vital Sign Value Performing Clinician Faci lity 02-23-2023 13:04-0400 Body height 162.[address] Vlad Fitzpatrick Work Phone: [facility] 02-23-2023 13:04-0400 Body mass index (BMI) [Ratio] 25 kg/m2 Dr. Vlad Fitzpatrick Work Phone: [facility] 02-23-2023 13:04-0400 Body weight 66.[address] Vlad Fitzpatrick Work Phone: [facility] 02-23-2023 13:04-0400 Diastolic blood pressure 76 mm[Hg] Dr. Vlad Fitzpatrick Work Phone: [facility] 02-23-2023 13:04-0400 Systolic blood pressure 132 mm[Hg] Dr. Vlad Fitzpatrick Work Phone: [facility] Encounters Encounter Date Encounter Type Care Provider Facility Start: 03-21-2025 End: 03-21-2025 Patient encounter procedure Lori ANTUNEZ -Outpatient Breast Imaging Work Phone: Start: 03-21-2025 End: 03-21-2025 ambulatory Vlad Fitzpatrick Facility:[facility] Start: 09-22-2024 End: 09-22-2024 ambulatory Vlad Fitzpatrick Facility:[facility] Start: 09-18-2024 End: 09-18-2024 ambulatory Vlad Fitzpatrick Facility:[facility] Start: 08-08-2024 End: 08-08-2024 ambulatory Vlad Fitzpatrick Facility:[facility] Start: 07-08-2024 End: 07-08-2024 Emergency department patient visit Vlad Fitzpatrick Facility:[facility] Start: 05-31-2024 End: 05-31-2024 ambulatory Vlad Fitzpatrick Facility:[facility] Start: 05-31-2024 End: 05-31-2024 ambulatory Lori Sidhu COMPUTER SPECIALIST Facility:[facility] Start: 03-30-2024 ambulatory Nitin Whitaker Facility:[facility] Start: 03-30-2024 End: 03-30-2024 ambulatory Vlad Fitzpatrick Facility:[facility] Start: 03-29-2024 End: 03-29-2024 Emergency department patient visit Titus Kumar Facility:[facility] Start: 03-22-2023 End: 03-22-[address] Vlad Fitzpatrick Work Phone: [facility] Work Phone: Start: 03-22-2023 End: 03-22-[address] Vlad Fitzpatrick Work Phone: [facility] Work Phone: Start: 03-18-2023 End: 03-18-[address] Vlad Fitzpatrick Work Phone: [facility] Work Phone: Start: 03-18-2023 End: 03-18-[address] Vlad Fitzpatrick Work Phone: [facility]-Outpatient [facility] Work Phone: Start: 03-02-2023 End: 03-02-[address] Vlad Fitzpatrick Work Phone: [facility] Work Phone: Start: 02-23-2023 End: 02-23-[address] Vlad Fitzpatrick Work Phone: [facility] Work Phone: Start: 03-17-2022 End: 03-17-2022 Patient encounter procedure [facility] Start: 11-07-2021 End: 11-07-2021 Patient encounter procedure [facility]ound, [facility] Start: 11-05-2021 End: 11-05-2021 Discharged Recurring [facility]-Massage Therapy, [facility] Start: 09-11-2021 Patient encounter procedure [facility]-Laboratory, [place] Procedures Date Procedure Procedure Detail Performing Clinician Start: 03-21-2025 Screening mammography Rachel Fitzpatrick MD Work Phone: Start: 03-18-2023 Screening mammography Rachel Fitzpatrick Work Phone: Start: 03-17-2022 Screening mammography Start: 11-07-2021 Thyroid Immunizations Immunization Date Immunization Notes Care Provider [facility] 06-23-2020 influenza, injectabl e, quadrivalent, preservative free Dr. Vlad Fitzpatrick MD Work Phone: [facility] 06-23-2020 influenza, seasonal, injectable [facility] 06-27-2019 influenza, injectabl e, quadrivalent, preservative free Dr. Vlad Fitzpatrick MD Work Phone: [facility] 06-27-2019 influenza, seasonal, injectable [facility] 06-15-2018 influenza, injectabl e, quadrivalent, preservative free Dr. Vlad Fitzpatrick MD Work Phone: [facility] 06-15-2018 influenza, seasonal, injectable [facility] 06-14-2017 influenza, injectabl e, quadrivalent, preservative free Dr. Vlad Fitzpatrick MD Work Phone: [facility] 06-14-2017 influenza, seasonal, injectable [facility] 06-14-2016 influenza, injectabl e, quadrivalent, preservative free Dr. Vlad Fitzpatrick MD Work Phone: [facility] 06-14-2016 influenza, seasonal, injectable [facility] 07-09-2015 influenza, injectabl e, quadrivalent, preservative free Dr. Vlad Fitzpatrick MD Work Phone: [facility] 07-09-2015 influenza, seasonal, injectable [facility] 06-07-2014 influenza, injectabl e, quadrivalent, preservative free Dr. Vlad Fitzpatrick MD Work Phone: [facility] 06-07-2014 influenza, seasonal, injectable [facility] Payers Date Payer Category Payer Medicare [id number] 2024 Self-pay [id number] Unknown [id number] Unknown [id number] Unknown [id number] Unknown [id number] 2.16.8 [id number] Unknown [id number] 2.16.8 [id number] Unknown [id number] 2.16.8 [id number] Unknown [id number] 2.16.8 [id number] Unknown [id number] 2.16.8 [id number] Unknown [id number] 2.16.8 [id number] Unknown [id number] 2.16.8 [id number] Unknown [id number] 2.16.8 [id number] Unknown [id number] 2.16.8 [id number] Unknown [id number] 2.16.8 [id number] Social History Date Type Detail Facility Start: 07-31-2021 End: 03-02-2023 Tobacco smoking status NHIS Unknown if ever smoked [facility] Start: 1960 Sex Assigned At Female [facility] Start: 09-22-2024 Tobacco smoking stat us NHIS Never smoked tobacco (finding) [facility] Goals Date Patient Goal Desired Activity /State Evaluation note Note Date & Type Note Facility Evaluation note No assessment information availa ble [facility] Work Phone: Evaluation note Note Date & [...] region acute Degenerative disc disease, cervical chronic [facility] Work Phone: Reason for referral (narrative) Note Date & Type Note Facility Reason for referral (narrative) No reason for referral information available [facility] Work Phone: Chief Complaint and Reason for [...] Will No May 01 12:00pm Power of Needle Setter No May 01, 021 12:00pm Summary Purpose [...] 2025 End: March 21, 2025 Lori Sidhu COMPUTER SPECIALIST, COMPUTER SPECIALIST-C Attending Provider Active Start: March 21, 2025 End: March 21, 2025 Lori Sidhu NP COMPUTER SPECIALIST-C Referring Provider Active Start: March 21, 2025 End: March 21, 2025 INFORMATION SOURCE (unrecogn ized section and content) DATE CREATED AUTHOR 03/22/2025 [facility] FOR RECORDS PERTAINING TO PATIENTS WHO ARE [...] BE BASED ON THE PRIMARY CLINICAL RECORDS. [facility]. provides no warranty or guarantee of the accuracy or completeness of information in this document.
== END | disposition home or self-care (01) ==
LOC: MTLAB 09:32
PROVIDERS: PCP Family Medicine; Referring Provider Family Medicine; Visit Provider Family Medicine
DX: I10 Essential (primary) hypertension (principal); R73.02 Impaired glucose tolerance (oral); E55.9 Vitamin D deficiency, unspecified; I49.3 Ventricular premature depolarization
CPT/HCPCS: 36415; 80053; 80061; 81001; 82306; 83036; 83735; 85025

== ENCOUNTER → 2025-09-10 | Outpatient (CLI) | payer MEDICARE, OTHER, SELFPAY ==
[2025-09-10 10:42] LABS: Hematocrit 43.4 % (37-47); Hemoglobin 14.8 g/dL (12.0-15.0); Immature Granulocytes Count 0.010 X10^3/uL (0.0-0.0); Mean Corp Hgb Conc 34.1 g/dL (32-36); Mean Corpuscular Volume 87.7 fL (81-99); Mean Platelet Vol. 9.9 fl (6.2-12.0); NRBC Flagged by Analyzer 0 % (0-5); Platelet Count 261 K/mm3 (150-450); RBC Distribution Width CV 12.3 % (11.6-14.6); RBC Distribution Width SD 39.0 fl (35.1-43.9); Red Blood Count 4.95 M/mm3 (4.2-5.4); White Blood Count 6.9 K/mm3 (4.4-11.0)
[2025-09-10 11:00] LABS: AST(SGOT) 21 U/L (<=31); Alanine Aminotransfer ALT/SGPT 15 U/L (<=34); Albumin, Serum 4.3 g/dL (3.4-4.8); Alkaline Phosphatase 67 U/L (35-104); Anion Gap 10 (7-18); BUN 13 mg/dL (4-19); BUN/Creat Ratio 17.8 RATIO (10-20); Calcium,Total 9.6 mg/dL (7.6-11.0); Carbon Dioxide 25.2 mmol/L (20.0-29.0); Chloride 103 mmol/L (96-106); Cholesterol 218 mg/dL (<=200); Globulin 3.0 g/dL (2.2-4.2); Glucose 104 mg/dL (70-99); Low Density Lipoprotein Calc. 144 mg/dL; Potassium 4.0 mmol/L (3.5-5.1); Triglycerides 147 mg/dL; Very Low Density Lipoprotein 29 mg/dL (5-40); cholesterol:hdl ratio screen 4.63
[2025-09-10 11:39] LABS: Vitamin D,25 Hydroxy 58.3 ng/mL (30-100)
== END | disposition home or self-care (01) ==
LOC: MTLAB 08:08
PROVIDERS: PCP Family Medicine; Referring Provider Family Medicine; Visit Provider Family Medicine
DX: R73.02 Impaired glucose tolerance (oral) (principal); E55.9 Vitamin D deficiency, unspecified; I10 Essential (primary) hypertension
CPT/HCPCS: 36415; 80053; 80061; 82306; 83036; 84443; 85025